=== PATIENT | female | born 1950 | race Caucasian/White ===

== ENCOUNTER → 2023-03-24 06:36 | Outpatient (REF) | payer MEDICARE, OTHER, SELFPAY | LOC: MRI 3T 06:36 | PROVIDERS: ATTENDING PHYSICIAN Podiatrist Foot Surgery; FAMILY PHYSICIAN Internal Medicine | DX: L97.522 Non-pressure chronic ulcer of other part of left foot with fat layer exposed (principal) | CPT/HCPCS: 73718 ==

== ENCOUNTER → 2023-04-20 08:59 | Outpatient (REF) | payer MEDICARE, OTHER, SELFPAY | LOC: RAD 08:59 | PROVIDERS: ATTENDING PHYSICIAN Podiatrist Foot Surgery; FAMILY PHYSICIAN Internal Medicine | DX: L97.522 Non-pressure chronic ulcer of other part of left foot with fat layer exposed (principal) | CPT/HCPCS: 93922; 93925 ==

== ENCOUNTER → 2023-04-28 07:23 | Outpatient (REF) | payer MEDICARE, OTHER, SELFPAY ==
[2023-04-28 08:17] LABS: % Basophils 0.7 % (0-2); % Eosinophils 1.9 % (0-6); % Immature Granulocytes 0.5 % (0-0.5); % Lymphocytes 15.9 % (20.5-51.1); % Monocytes 7.3 % (1.7-9.3); % Neutrophils 73.7 % (42.2-75.2); Absolute Basophils 0.1 10^3/uL (0-0.2); Absolute Eosinophils 0.2 10^3/uL (0-0.7); Absolute Immature Granulocytes 0.1 10^3/uL (0-0.05); Absolute Lymphocytes 1.6 10^3/uL (1.2-3.4); Absolute Monocytes 0.7 10^3/uL (0.1-0.6); Absolute Neutrophils 7.3 10^3/uL (1.4-6.5); Hematocrit 43.1 % (37.0-47.0); Hemoglobin 14.1 g/dL (12.0-16.0); Mean Corp Hgb Conc. 32.7 g/dL (33.0-37.0); Mean Corpuscular Hgb 27.5 pg (27.0-31.0); Mean Platelet Volume 10.5 fL (7.4-10.4); Nucleated Red Blood Cells % 0 %; Platelet Count 290 10^3/uL (130-400); Red Blood Cell Count 5.13 10^6/uL (4.20-5.40); Red Cell Dist. Width 14.4 % (11.5-14.5); White Blood Cell Count 9.9 10^3/uL (4.8-10.8)
[2023-04-28 09:17] LABS: ALT (SGPT) 16 U/L (0-35); AST (SGOT) 20 U/L (14-36); Albumin 4.4 g/dl (3.5-5.0); Alkaline Phosphatase 63 U/L (38-126); Blood Urea Nitrogen 19 mg/dl (7-17); Calcium 9.5 mg/dl (8.4-10.2); Carbon Dioxide 22 mmol/L (22-30); Chloride 106 mmol/L (98-107); Glucose 98 mg/dl (70-99); HDL Cholesterol 93 mg/dl; LDL Cholesterol, Calculated 48 mg/dl; Potassium 4.2 mmol/L (3.5-5.1); Sodium 137 mmol/L (135-145); Total Bilirubin 0.7 mg/dl (0.2-1.3); Total Cholesterol 154 mg/dl (50-199); Triglyceride 67 mg/dl (10-149); Very Low Density Lipoprotein 13 mg/dl (0-30); eGFR > 60.00
[2023-04-28 09:43] LABS: TSH Reflex To Free T4 < 0.02 uIU/ml (0.47-4.68)
[2023-04-28 10:11] LABS: Free T4 1.58 ng/dl (0.78-2.19)
[2023-04-28 13:20] LABS: Glycohemoglobin (HgbA1c) 5.9 % (4.0-5.6)
== END ==
LOC: REG 07:23
PROVIDERS: ATTENDING PHYSICIAN Internal Medicine
DX: I10 Essential (primary) hypertension (principal); E78.00 Pure hypercholesterolemia, unspecified; E11.9 Type 2 diabetes mellitus without complications; Z79.2 Long term (current) use of antibiotics; Z68.34 Body mass index [BMI] 34.0-34.9, adult
CPT/HCPCS: 36415; 80053; 80061; 83036; 84439; 84443; 85025

== ENCOUNTER → 2023-07-21 07:16 | Outpatient (REF) | payer MEDICARE, OTHER, SELFPAY ==
[2023-07-21 08:14] LABS: % Basophils 0.4 % (0-2); % Eosinophils 1.9 % (0-6); % Immature Granulocytes 0.6 % (0-0.5); % Lymphocytes 15.2 % (20.5-51.1); % Monocytes 6.4 % (1.7-9.3); % Neutrophils 75.5 % (42.2-75.2); Absolute Eosinophils 0.2 10^3/uL (0-0.7); Absolute Immature Granulocytes 0.1 10^3/uL (0-0.05); Absolute Lymphocytes 1.4 10^3/uL (1.2-3.4); Absolute Monocytes 0.6 10^3/uL (0.1-0.6); Absolute Neutrophils 7.1 10^3/uL (1.4-6.5); Hemoglobin 14.1 g/dL (12.0-16.0); Mean Corp Hgb Conc. 32.8 g/dL (33.0-37.0); Mean Corpuscular Hgb 27.4 pg (27.0-31.0); Mean Corpuscular Volume 83.5 fL (81.0-99.0); Mean Platelet Volume 10.6 fL (7.4-10.4); Nucleated Red Blood Cells % 0 %; Platelet Count 265 10^3/uL (130-400); Red Blood Cell Count 5.15 10^6/uL (4.20-5.40); Red Cell Dist. Width 14.3 % (11.5-14.5); White Blood Cell Count 9.4 10^3/uL (4.8-10.8)
[2023-07-21 08:56] LABS: Glycohemoglobin (HgbA1c) 6.2 % (4.0-5.6)
[2023-07-21 09:04] LABS: ALT (SGPT) 15 U/L (0-35); AST (SGOT) 19 U/L (14-36); Alkaline Phosphatase 61 U/L (38-126); Blood Urea Nitrogen 19 mg/dl (7-17); Calcium 9.7 mg/dl (8.4-10.2); Carbon Dioxide 24 mmol/L (22-30); Chloride 107 mmol/L (98-107); Glucose 79 mg/dl (70-99); HDL Cholesterol 82 mg/dl; LDL Cholesterol, Calculated 57 mg/dl; Sodium 140 mmol/L (135-145); Total Bilirubin 0.7 mg/dl (0.2-1.3); Total Cholesterol 155 mg/dl (50-199); Total Protein 6.9 g/dl (6.3-8.2); Triglyceride 83 mg/dl (10-149); Very Low Density Lipoprotein 16 mg/dl (0-30); eGFR > 60.00
[2023-07-21 09:33] LABS: TSH Reflex To Free T4 < 0.02 uIU/ml (0.47-4.68)
[2023-07-21 09:48] LABS: Albumin 4.3 g/dl (3.5-5.0)
[2023-07-21 10:00] LABS: Free T4 1.46 ng/dl (0.78-2.19)
== END ==
LOC: REG 07:16
PROVIDERS: ATTENDING PHYSICIAN Internal Medicine
DX: I10 Essential (primary) hypertension (principal); E11.622 Type 2 diabetes mellitus with other skin ulcer; E05.90 Thyrotoxicosis, unspecified without thyrotoxic crisis or storm
CPT/HCPCS: 36415; 80053; 80061; 83036; 84439; 84443; 85025

== ENCOUNTER → 2023-10-20 07:31 | Outpatient (REF) | payer MEDICARE, OTHER, SELFPAY ==
[2023-10-20 10:03] LABS: % Basophils 0.8 % (0-2); % Eosinophils 1.9 % (0-6); % Immature Granulocytes 0.7 % (0-0.5); % Lymphocytes 18.9 % (20.5-51.1); % Monocytes 6.3 % (1.7-9.3); % Neutrophils 71.4 % (42.2-75.2); Absolute Basophils 0.1 10^3/uL (0-0.2); Absolute Eosinophils 0.2 10^3/uL (0-0.7); Absolute Immature Granulocytes 0.1 10^3/uL (0-0.05); Absolute Lymphocytes 1.9 10^3/uL (1.2-3.4); Absolute Monocytes 0.6 10^3/uL (0.1-0.6); Absolute Neutrophils 7.2 10^3/uL (1.4-6.5); Hematocrit 45.8 % (37.0-47.0); Hemoglobin 14.8 g/dL (12.0-16.0); Mean Corp Hgb Conc. 32.3 g/dL (33.0-37.0); Mean Corpuscular Hgb 27.7 pg (27.0-31.0); Mean Corpuscular Volume 85.8 fL (81.0-99.0); Mean Platelet Volume 10.5 fL (7.4-10.4); Nucleated Red Blood Cells % 0 %; Platelet Count 263 10^3/uL (130-400); Red Blood Cell Count 5.34 10^6/uL (4.20-5.40); Red Cell Dist. Width 14.2 % (11.5-14.5); White Blood Cell Count 10.1 10^3/uL (4.8-10.8)
[2023-10-20 10:23] LABS: ALT (SGPT) 15 U/L (0-35); AST (SGOT) 19 U/L (14-36); Albumin 4.8 g/dl (3.5-5.0); Alkaline Phosphatase 61 U/L (38-126); Blood Urea Nitrogen 19 mg/dl (7-17); Calcium 10.1 mg/dl (8.4-10.2); Carbon Dioxide 23 mmol/L (22-30); Chloride 103 mmol/L (98-107); Glucose 86 mg/dl (70-99); HDL Cholesterol 91 mg/dl; LDL Cholesterol, Calculated 76 mg/dl; Potassium 5.3 mmol/L (3.5-5.1); Sodium 143 mmol/L (135-145); Total Bilirubin 0.6 mg/dl (0.2-1.3); Total Cholesterol 185 mg/dl (50-199); Total Protein 6.9 g/dl (6.3-8.2); Triglyceride 92 mg/dl (10-149); Very Low Density Lipoprotein 18 mg/dl (0-30); eGFR > 60.00
[2023-10-20 10:57] LABS: TSH Reflex To Free T4 0.52 uIU/ml (0.47-4.68)
[2023-10-20 11:40] LABS: Glycohemoglobin (HgbA1c) 5.9 % (4.0-5.6)
== END ==
LOC: REG 07:31
PROVIDERS: ATTENDING PHYSICIAN Podiatrist Foot Surgery; FAMILY PHYSICIAN Internal Medicine
DX: I10 Essential (primary) hypertension (principal); E78.00 Pure hypercholesterolemia, unspecified; Z79.2 Long term (current) use of antibiotics; E11.9 Type 2 diabetes mellitus without complications; Z01.818 Encounter for other preprocedural examination
CPT/HCPCS: 36415; 80053; 80061; 83036; 84443; 85025; 93005

== ENCOUNTER → 2024-01-12 09:12 | Outpatient (REF) | payer OTHER, MEDICARE, SELFPAY ==
[2024-01-12 10:41] LABS: % Basophils 0.9 % (0-2); % Eosinophils 5.7 % (0-6); % Immature Granulocytes 1.1 % (0-0.5); % Lymphocytes 27.9 % (20.5-51.1); % Monocytes 8.1 % (1.7-9.3); % Neutrophils 56.3 % (42.2-75.2); Absolute Basophils 0.1 10^3/uL (0-0.2); Absolute Eosinophils 0.5 10^3/uL (0-0.7); Absolute Immature Granulocytes 0.1 10^3/uL (0-0.05); Absolute Lymphocytes 2.2 10^3/uL (1.2-3.4); Absolute Monocytes 0.6 10^3/uL (0.1-0.6); Absolute Neutrophils 4.4 10^3/uL (1.4-6.5); Hematocrit 39.4 % (37.0-47.0); Hemoglobin 11.9 g/dL (12.0-16.0); Mean Corp Hgb Conc. 30.2 g/dL (33.0-37.0); Mean Corpuscular Hgb 26.4 pg (27.0-31.0); Mean Corpuscular Volume 87.4 fL (81.0-99.0); Mean Platelet Volume 10.2 fL (7.4-10.4); Nucleated Red Blood Cells % 0 %; Platelet Count 360 10^3/uL (130-400); Red Blood Cell Count 4.51 10^6/uL (4.20-5.40); Red Cell Dist. Width 15.3 % (11.5-14.5); White Blood Cell Count 7.9 10^3/uL (4.8-10.8)
[2024-01-12 10:53] LABS: ALT (SGPT) 17 U/L (0-35); AST (SGOT) 22 U/L (14-36); Albumin 3.2 g/dl (3.5-5.0); Alkaline Phosphatase 86 U/L (38-126); Blood Urea Nitrogen 13 mg/dl (7-17); Carbon Dioxide 28 mmol/L (22-30); Chloride 104 mmol/L (98-107); Glucose 93 mg/dl (70-99); Magnesium 1.9 mg/dl (1.6-2.3); Potassium 4.8 mmol/L (3.5-5.1); Sodium 140 mmol/L (135-145); Total Bilirubin 0.2 mg/dl (0.2-1.3); Total Protein 5.4 g/dl (6.3-8.2); eGFR > 60.00
[2024-01-12 11:02] LABS: Glycohemoglobin (HgbA1c) 5.7 % (4.0-5.6)
== END ==
LOC: OLABN 09:12
PROVIDERS: ATTENDING PHYSICIAN Student in an Organized Health Care Education/Training Program
DX: I10 Essential (primary) hypertension (principal); E11.9 Type 2 diabetes mellitus without complications; E83.42 Hypomagnesemia
CPT/HCPCS: 36415; 80053; 83036; 83735; 85025

== ENCOUNTER → 2024-03-03 07:42 | Outpatient (REF) | payer OTHER, MEDICARE, SELFPAY | LOC: WOUND 07:42 | PROVIDERS: ATTENDING PHYSICIAN Surgery; FAMILY PHYSICIAN Internal Medicine | DX: L97.322 Non-pressure chronic ulcer of left ankle with fat layer exposed (principal); L97.326 Non-pressure chronic ulcer of left ankle with bone involvement without evidence of necrosis; I73.9 Peripheral vascular disease, unspecified; E11.9 Type 2 diabetes mellitus without complications; Z96.662 Presence of left artificial ankle joint | CPT/HCPCS: 11042; 99214 ==

== ENCOUNTER → 2024-03-10 09:11 | Outpatient (REF) | payer OTHER, MEDICARE, SELFPAY | LOC: WOUND 09:11 | PROVIDERS: ATTENDING PHYSICIAN Surgery; FAMILY PHYSICIAN Internal Medicine | DX: L97.322 Non-pressure chronic ulcer of left ankle with fat layer exposed (principal); E11.51 Type 2 diabetes mellitus with diabetic peripheral angiopathy without gangrene | CPT/HCPCS: 97597 ==

== ENCOUNTER → 2024-03-17 11:11 | Outpatient (REF) | payer OTHER, MEDICARE, SELFPAY ==
[2024-03-17 13:22] LABS: HDL Cholesterol 44 mg/dl; LDL Cholesterol, Calculated 55 mg/dl; Total Cholesterol 119 mg/dl (50-199); Triglyceride 102 mg/dl (10-149); Very Low Density Lipoprotein 20 mg/dl (0-30)
== END ==
LOC: OLABN 11:11
PROVIDERS: ATTENDING PHYSICIAN Student in an Organized Health Care Education/Training Program
DX: E78.5 Hyperlipidemia, unspecified (principal)
CPT/HCPCS: 36415; 80061

== ENCOUNTER → 2024-04-21 10:44 | Outpatient (REF) | payer OTHER, MEDICARE, SELFPAY | LOC: WOUND 10:44 | PROVIDERS: ATTENDING PHYSICIAN Surgery; FAMILY PHYSICIAN Internal Medicine | DX: L97.324 Non-pressure chronic ulcer of left ankle with necrosis of bone (principal); L97.322 Non-pressure chronic ulcer of left ankle with fat layer exposed; L03.116 Cellulitis of left lower limb; I73.9 Peripheral vascular disease, unspecified; E11.9 Type 2 diabetes mellitus without complications; Z96.662 Presence of left artificial ankle joint | CPT/HCPCS: 87070; 87075; 87077; 87147; 87186; 87205; 99214 ==

== ENCOUNTER → 2024-05-17 11:21 | Outpatient (REF) | payer MEDICARE, OTHER, SELFPAY ==
[2024-05-17 12:40] LABS: Hematocrit 39.2 % (37.0-47.0); Hemoglobin 11.6 g/dL (12.0-16.0); Mean Corp Hgb Conc. 29.6 g/dL (33.0-37.0); Mean Corpuscular Hgb 23.7 pg (27.0-31.0); Mean Platelet Volume 10.5 fL (7.4-10.4); Platelet Count 345 10^3/uL (130-400); Red Cell Dist. Width 23.3 % (11.5-14.5); White Blood Cell Count 8.9 10^3/uL (4.8-10.8)
[2024-05-17 13:47] LABS: Blood Urea Nitrogen 18 mg/dl (7-17); Calcium 9.9 mg/dl (8.4-10.2); Carbon Dioxide 25 mmol/L (22-30); Chloride 106 mmol/L (98-107); Glucose 47 mg/dl (70-99); Potassium 4.3 mmol/L (3.5-5.1); Sodium 141 mmol/L (135-145); eGFR > 60.00
== END ==
LOC: OLABN 11:21
PROVIDERS: ATTENDING PHYSICIAN Student in an Organized Health Care Education/Training Program
DX: A49.02 Methicillin resistant Staphylococcus aureus infection, unspecified site (principal)
CPT/HCPCS: 36415; 80048; 85027

== ENCOUNTER → 2024-06-02 10:37 | Outpatient (REF) | payer MEDICARE, OTHER, SELFPAY ==
[2024-06-02 10:50] LABS: % Basophils 0.7 % (0-2); % Eosinophils 3.4 % (0-6); % Monocytes 7.3 % (1.7-9.3); % Neutrophils 63.6 % (42.2-75.2); Absolute Basophils 0.1 10^3/uL (0-0.2); Absolute Eosinophils 0.4 10^3/uL (0-0.7); Absolute Immature Granulocytes 0.1 10^3/uL (0-0.05); Absolute Lymphocytes 3.1 10^3/uL (1.2-3.4); Absolute Monocytes 0.9 10^3/uL (0.1-0.6); Absolute Neutrophils 8.1 10^3/uL (1.4-6.5); Hematocrit 38.8 % (37.0-47.0); Hemoglobin 11.8 g/dL (12.0-16.0); Mean Corp Hgb Conc. 30.4 g/dL (33.0-37.0); Mean Corpuscular Hgb 24.1 pg (27.0-31.0); Mean Corpuscular Volume 79.3 fL (81.0-99.0); Mean Platelet Volume 10.4 fL (7.4-10.4); Nucleated Red Blood Cells % 0 %; Platelet Count 305 10^3/uL (130-400); Red Blood Cell Count 4.89 10^6/uL (4.20-5.40); Red Cell Dist. Width 21.5 % (11.5-14.5); White Blood Cell Count 12.8 10^3/uL (4.8-10.8)
[2024-06-02 11:01] LABS: Erythrocyte Sed Rate 24 mm/hour (0-20)
[2024-06-02 11:30] LABS: ALT (SGPT) 13 U/L (0-35); AST (SGOT) 14 U/L (14-36); Albumin 3.5 g/dl (3.5-5.0); Alkaline Phosphatase 76 U/L (38-126); Blood Urea Nitrogen 22 mg/dl (7-17); Calcium 9.7 mg/dl (8.4-10.2); Carbon Dioxide 24 mmol/L (22-30); Chloride 106 mmol/L (98-107); Glucose 65 mg/dl (70-99); Potassium 4.5 mmol/L (3.5-5.1); Sodium 142 mmol/L (135-145); Total Bilirubin 0.4 mg/dl (0.2-1.3); Total Protein 6.3 g/dl (6.3-8.2); eGFR > 60.00
== END ==
LOC: OLABN 10:37
PROVIDERS: ATTENDING PHYSICIAN Student in an Organized Health Care Education/Training Program
DX: M86.9 Osteomyelitis, unspecified (principal)
CPT/HCPCS: 80053; 85025; 85652; 86140

== ENCOUNTER → 2024-07-01 10:10 | Outpatient (REF) | payer MEDICARE, OTHER, SELFPAY ==
[2024-07-01 13:05] LABS: % Basophils 0.6 % (0-2); % Eosinophils 3.2 % (0-6); % Immature Granulocytes 0.8 % (0-0.5); % Lymphocytes 38.5 % (20.5-51.1); % Monocytes 8.7 % (1.7-9.3); % Neutrophils 48.2 % (42.2-75.2); Absolute Eosinophils 0.2 10^3/uL (0-0.7); Absolute Immature Granulocytes 0.1 10^3/uL (0-0.05); Absolute Lymphocytes 2.5 10^3/uL (1.2-3.4); Absolute Monocytes 0.6 10^3/uL (0.1-0.6); Absolute Neutrophils 3.2 10^3/uL (1.4-6.5); Hematocrit 37.6 % (37.0-47.0); Hemoglobin 11.4 g/dL (12.0-16.0); Mean Corp Hgb Conc. 30.3 g/dL (33.0-37.0); Mean Corpuscular Hgb 24.3 pg (27.0-31.0); Mean Platelet Volume 10.4 fL (7.4-10.4); Nucleated Red Blood Cells % 0 %; Platelet Count 254 10^3/uL (130-400); Red Cell Dist. Width 19.7 % (11.5-14.5); White Blood Cell Count 6.5 10^3/uL (4.8-10.8)
[2024-07-01 13:32] LABS: ALT (SGPT) 12 U/L (0-35); AST (SGOT) 14 U/L (14-36); Albumin 3.1 g/dl (3.5-5.0); Alkaline Phosphatase 73 U/L (38-126); Blood Urea Nitrogen 24 mg/dl (7-17); Calcium 8.7 mg/dl (8.4-10.2); Carbon Dioxide 24 mmol/L (22-30); Chloride 112 mmol/L (98-107); Glucose 87 mg/dl (70-99); Potassium 4.4 mmol/L (3.5-5.1); Sodium 142 mmol/L (135-145); Total Bilirubin 0.3 mg/dl (0.2-1.3); Total Protein 5.9 g/dl (6.3-8.2); eGFR > 60.00
[2024-07-01 13:56] LABS: Erythrocyte Sed Rate 26 mm/hour (0-20)
== END ==
LOC: OLABN 10:10
PROVIDERS: ATTENDING PHYSICIAN Student in an Organized Health Care Education/Training Program
DX: M86.9 Osteomyelitis, unspecified (principal)
CPT/HCPCS: 36415; 80053; 85025; 85652; 86140

== ENCOUNTER → 2024-09-05 10:47 | Outpatient (REF) | payer MEDICARE, OTHER, SELFPAY ==
[2024-09-05 12:35] LABS: Blood Urea Nitrogen 19 mg/dl (7-17); Calcium 9.1 mg/dl (8.4-10.2); Carbon Dioxide 28 mmol/L (22-30); Chloride 109 mmol/L (98-107); Glucose 87 mg/dl (70-99); Potassium 5.0 mmol/L (3.5-5.1); Sodium 140 mmol/L (135-145); eGFR > 60.00
[2024-09-05 13:09] LABS: C-Reactive Protein < 5.00 mg/L (0.0-10.00)
== END ==
LOC: OLABN 10:47
PROVIDERS: ATTENDING PHYSICIAN Student in an Organized Health Care Education/Training Program
DX: M86.9 Osteomyelitis, unspecified (principal)
CPT/HCPCS: 36415; 80048; 85652; 86140

== ENCOUNTER → 2024-09-06 20:33 | Outpatient (REF) | payer MEDICARE, OTHER, SELFPAY ==
[2024-09-07 11:08] LABS: Urine Character Slightly Cloudy (Clear)
[2024-09-07 11:55] LABS: Urine Squamous Cell 26-30 /LPF (Few)
[2024-09-07 11:57] LABS: Urine White Cell 60-70 /HPF (0-5)
== END ==
LOC: OLABN 20:33
PROVIDERS: ATTENDING PHYSICIAN Student in an Organized Health Care Education/Training Program
DX: R30.9 Painful micturition, unspecified (principal)
CPT/HCPCS: 81003; 81015; 87077; 87086

== ENCOUNTER → 2024-09-07 10:14 | Outpatient (REF) | payer MEDICARE, OTHER, SELFPAY ==
[2024-09-07 10:38] LABS: Hematocrit 38.1 % (37.0-47.0); Hemoglobin 12.2 g/dL (12.0-16.0); Mean Corp Hgb Conc. 32.0 g/dL (33.0-37.0); Mean Corpuscular Volume 80.9 fL (81.0-99.0); Platelet Count 329 10^3/uL (130-400); Red Cell Dist. Width 15.8 % (11.5-14.5)
== END ==
LOC: OLABN 10:14
PROVIDERS: ATTENDING PHYSICIAN Student in an Organized Health Care Education/Training Program
DX: Z86.14 Personal history of Methicillin resistant Staphylococcus aureus infection (principal)
CPT/HCPCS: 36415; 85027

== ENCOUNTER → 2024-10-19 21:00 | Outpatient (REF) | payer MEDICARE, OTHER, SELFPAY ==
[2024-10-20 12:57] LABS: Urine Character Cloudy (Clear)
[2024-10-20 13:34] LABS: Urine Red Blood Cell 0-2 /HPF (0-2)
== END ==
LOC: OLABN 21:00
PROVIDERS: ATTENDING PHYSICIAN Student in an Organized Health Care Education/Training Program
DX: R35.0 Frequency of micturition (principal)
CPT/HCPCS: 81003; 81015; 87086

== ENCOUNTER 2025-01-26 14:43 | Inpatient (IN) | payer MEDICARE, OTHER, SELFPAY ==
[2025-01-26] VITALS (10 sets, daily range): BP systolic 95–148; BP diastolic 41–88; BMI 32.2
--- NOTE | 2025-01-26 09:28 | ED.GENMED ---
History of Present Illness
<TAE Bautista - Last Filed: 01/26/25 15:44>
General
Chief Complaint: Fall
Source: patient
Exam Limitations: none
Time Seen by Provider: 01/26/25 09:06
Nursing documentation reviewed up to this point in time: agreed with
History of Present Illness
History of Present Illness:
Patient is a 74-year-old female who lives alone presents to the ER for evaluation. Patient reports she has had a fever for the past 2 days and has not felt well. Today she reports she fell twice because of not feeling well. She fell earlier this
morning at 5:30 AM and prior to arrival. She called EMS initially to assist her off the ground however she did not come to the ER. With the second fall EMS brought patient to the ER. She denies hitting her head she does complain of right knee
pain. She is not on blood thinners.
She complains of fever she denies any runny nose cough congestion. She denies any abdominal pain nausea vomiting diarrhea. She denies any urinary frequency or urgency.
Past History
<TAE Bautista - Last Filed: 01/26/25 15:44>
Past History
ED Past Medical History: HTN, Hypercholesterolemia, NIDDM and Other (Osteoarthritis)
ED Past Surgical History: Orthopedic (Bilateral hip replacement, bilateral knee replacement), Tonsilectomy and Other (Agree with documented past surgical history)
Social History
Tobacco: Non-smoker
Alcohol: None
Personal: Single
Living: alone
Employment: Retired (Volunteer at [employer])
Family History
Family History: Other (Noncontributory)
Phy Exam
<TAE Bautista - Last Filed: 01/26/25 15:44>
General Physical Exam
General Presentation: no apparent distress
General age: appears stated age
General Skin: warm and dry
General Habitus: normal
General Mental: alert
General Hydration: dry mucous membranes
Cardiovascular Exam
Cardiovascular Exam: tachycardia
Pulmonary Exam
Pulmonary Exam: lungs clear and no respiratory distress
Neurological Exam
Neurological Exam: alert and oriented x3
Musculoskeletal Exam
Musculoskeletal Exam: other (lle with strong pulses + wound to medial left ankle with erythema to left ankle/lower leg )
Skin Exam
Skin Exam: normal color and warm/dry
Psychiatric Exam
Psychiatric Exam: normal mood/affect
Course
<TAE Bautista - Last Filed: 01/26/25 15:44>
Orders/Labs/Results
Orders:
Orders
01/26/25 09:20
Electrocardiogram (*1) Urgent
Reason for Study: Other
Other Reason for Exam: Possible Sepsis
Cardiac Monitoring- Treatment ONCE
EKG- Treatment ONCE
IV Insert/Care/Rem.- Treatment PRN
CR Chest - 2 Views Urgent
Comment:
Reason For Exam: suspected infection
O2 Therapy [RESP] Urgent
Titrate/Wean O2 to maintain O2 sat greater than (%): 93
Special Instructions: TO MAINTAIN CONTINUOUS O2 SATS > OR = 93%
Pulse Ox/cont/shift [RESP] Urgent
Quantity: 1
Special Instructions: CONTINUOUS
01/26/25 09:22
COVID-19 Antigen Urgent
Source: Nasal Swab
Complete Blood Count/With Diff Urgent
Comprehensive Metabolic Panel Urgent
Lactic Acid Q4H
Comment: ON ICE, CANCEL 2ND ORDER IF FIRST LACTIC ACID LEVEL <2
Blood Culture Q20M
ANGELICA Source: Blood/Venous
Specimen Description:
Comment: Urgent from separate sites. If patient screens positive for possible sepsis
Blood Culture Q20M
ANGELICA Source: Blood/Venous
Specimen Description:
Comment: Urgent from separate sites. If patient screens positive for possible sepsis
Influenza A+B Rapid Molecular Urgent
ANGLEICA Source: Nasal Swab
Specimen Description:
Date Specimen was Collected: 01/26/25
Time Specimen was Collected: 09:20
01/26/25 09:23
CT Cervical Spine W/o Iv Contr Urgent
Comment:
Reason For Exam: trauma
CT Head W/o Iv Contrast Urgent
Comment:
Reason For Exam: trauma
01/26/25 09:25
0.9% Sodium Chloride 1000 ml [Nss] 1,000 ml IV BOLUS
01/26/25 09:26
Acetaminophen [Tylenol] 1,000 mg PO NOW STA
01/26/25 10:31
0.9% Sodium Chloride 1000 ml [Nss] 800 ml IV BOLUS
01/26/25 10:48
Straight cath- Treatment ONCE
01/26/25 10:50
CT Chest W/o Iv Contrast Urgent
Comment:
Reason For Exam: left chest wall brusing tenderness s/p fall
01/26/25 10:56
Piperacillin/Tazo 3.375 Gram [Zosyn] 3.375 gram in 50 ml IV NOW
01/26/25 11:57
Vancomycin [Vancocin] 2,000 mg 0.9% Sodium Chloride 500 ml [Nss] 500 ml IV NOW
01/26/25 12:38
CR Femur - Right Min 2 Vw Urgent
Comment:
Reason For Exam: right leg pain
01/26/25 13:50
Urinalysis Reflex To Culture Urgent
Date Specimen was Collected: 01/26/25
Time Specimen was Collected: 09:20
Urine Microscopic Reflex Cult Urgent
Urine Culture Urgent
ANGELICA Source: U
Specimen Description:
Date Specimen was Collected: 01/26/25
Time Specimen was Collected: 09:20
01/26/25 14:01
Admit/Transfer Patient As Directed
Co-Sign Provider:
Level of Care: Inpatient admission
Assign to:: Telemetry
Physician / Group: michelle
Diagnosis: cellulitis
Reason for Telemetry: Arrhythmia
Date to Stop Telemetry: 01/29/25
Time to Stop Telemetry: 11:00
Reason for Hospitalization: cellulitis
Expected length of stay greater than two midnights?: Yes
ELOS- Estimated Length of Stay in days: 3
I certify the patient meets the requirements for IP care: Yes
PRN Pain Medication Management As Directed
May give lesser potent ordered pain med per pt: Yes
preference::
Protocol:: Medication orders for pain may be administered in a
manner that supports deferring to patient preference
when the pt is:
- Requesting an ordered lesser potent pain medication.
Least to most potent pain medications are defined
as: acetaminophen < NSAID < tramadol < opioids
(morphine, oxycodone, hydromorphone).
- Requesting a lesser dose of the same medication IF
ORDERED.
- Requesting a less intrusive route of administration
if both routes are prescribed by the provider (PO <
IV).
01/26/25 14:02
Code Status As Directed
Resuscitation Status: Full Code
01/26/25 14:19
INFECTIOUS DISEASE CONSULT Routine
Consulting Provider: Abner Akins
Was physician already notified: Yes
01/26/25 14:20
Ibuprofen [Motrin] 600 mg PO NOW STA
01/29/25 11:00
DC Protocol for Telemetry ONCE
Abnormal Lab Results
01/26/25 01/26/25
09:22 13:50
WBC 24.2 H 10^3/uL
(4.8-10.8)
MCV 78.2 L fL
(81.0-99.0)
MCH 25.4 L pg
(27.0-31.0)
MCHC 32.4 L g/dL
(33.0-37.0)
RDW 16.9 H %
(11.5-14.5)
Abs Immat Gran (auto) 0.2 H 10^3/uL
(0-0.05)
Absolute Neuts (auto) 21.6 H 10^3/uL
(1.4-6.5)
Absolute Lymphs (auto) 0.6 L 10^3/uL
(1.2-3.4)
Absolute Monos (auto) 1.7 H 10^3/uL
(0.1-0.6)
Immature Gran % 0.9 H %
(0-0.5)
Neutrophils % 89.4 H %
(42.2-75.2)
Lymphocytes % 2.4 L %
(20.5-51.1)
Chloride 108 H mmol/L
(98-107)
Carbon Dioxide 18 L mmol/L
(22-30)
Glucose 164 H mg/dl
(70-99)
Urine Ketones 1+ A
(Negative)
Ur Occult Blood Reflex 4+ A
(Negative)
Urine Nitrite (Reflex) Positive A
(Negative)
Leukocyte Esterase Rfl 1+ A
(Negative)
Urine RBC 50-60 A /HPF
(0-2)
Urine WBC (Reflex) 40-50 A /HPF
(0-5)
Urine Bacteria (Reflex) Many A
(Negative)
Urine Albumin (Reflex) 3+ A
(Neg - Trace)
01/26/25 09:22
01/26/25 09:22
Vital Signs
Initial and Last Documented VS:
Initial Vital Signs
Temp Pulse Resp BP Pulse Ox
102.0 F H 110 24 148/71 92
01/26/25 09:09 01/26/25 09:09 01/26/25 09:09 01/26/25 09:09 01/26/25 09:09
Last Documented Vital Signs
Temp Pulse Resp BP Pulse Ox
102.0 F H 94 28 104/50 90
01/26/25 14:14 01/26/25 15:00 01/26/25 15:00 01/26/25 15:00 01/26/25 15:00
Social Worker Masters consulted with Physician
Social Worker Masters consulted with physician?: Yes
Name of Physician Consulted: DR Garcia
<Oscar Garcia MD - Last Filed: 01/26/25 12:42>
Orders/Labs/Results
Orders:
Orders
01/26/25 09:20
Electrocardiogram (*1) Urgent
Reason for Study: Other
Other Reason for Exam: Possible Sepsis
Cardiac Monitoring- Treatment ONCE
EKG- Treatment ONCE
IV Insert/Care/Rem.- Treatment PRN
CR Chest - 2 Views Urgent
Comment:
Reason For Exam: suspected infection
O2 Therapy [RESP] Urgent
Titrate/Wean O2 to maintain O2 sat greater than (%): 93
Special Instructions: TO MAINTAIN CONTINUOUS O2 SATS > OR = 93%
Pulse Ox/cont/shift [RESP] Urgent
Quantity: 1
Special Instructions: CONTINUOUS
01/26/25 09:22
COVID-19 Antigen Urgent
Source: Nasal Swab
Complete Blood Count/With Diff Urgent
Comprehensive Metabolic Panel Urgent
Lactic Acid Q4H
Comment: ON ICE, CANCEL 2ND ORDER IF FIRST LACTIC ACID LEVEL <2
Blood Culture Q20M
ANGELICA Source: Blood/Venous
Specimen Description:
Comment: Urgent from separate sites. If patient screens positive for possible sepsis
Blood Culture Q20M
ANGELICA Source: Blood/Venous
Specimen Description:
Comment: Urgent from separate sites. If patient screens positive for possible sepsis
Influenza A+B Rapid Molecular Urgent
ANGELICA Source: Nasal Swab
Specimen Description:
Date Specimen was Collected: 01/26/25
Time Specimen was Collected: 09:20
01/26/25 09:23
CT Cervical Spine W/o Iv Contr Urgent
Comment:
Reason For Exam: trauma
CT Head W/o Iv Contrast Urgent
Comment:
Reason For Exam: trauma
01/26/25 09:25
0.9% Sodium Chloride 1000 ml [Nss] 1,000 ml IV BOLUS
01/26/25 09:26
Acetaminophen [Tylenol] 1,000 mg PO NOW STA
01/26/25 10:31
0.9% Sodium Chloride 1000 ml [Nss] 800 ml IV BOLUS
01/26/25 10:48
Straight cath- Treatment ONCE
01/26/25 10:50
CT Chest W/o Iv Contrast Urgent
Comment:
Reason For Exam: left chest wall brusing tenderness s/p fall
01/26/25 10:56
Piperacillin/Tazo 3.375 Gram [Zosyn] 3.375 gram in 50 ml IV NOW
01/26/25 11:57
Vancomycin [Vancocin] 2,000 mg 0.9% Sodium Chloride 500 ml [Nss] 500 ml IV NOW
01/26/25 12:38
CR Femur - Right Min 2 Vw Urgent
Comment:
Reason For Exam: right leg pain
01/26/25 13:50
Urinalysis Reflex To Culture Urgent
Date Specimen was Collected: 01/26/25
Time Specimen was Collected: 09:20
Urine Microscopic Reflex Cult Urgent
Urine Culture Urgent
ANGELICA Source: U
Specimen Description:
Date Specimen was Collected: 01/26/25
Time Specimen was Collected: 09:20
01/26/25 14:01
Admit/Transfer Patient As Directed
Co-Sign Provider:
Level of Care: Inpatient admission
Assign to:: Telemetry
Physician / Group: michelle
Diagnosis: cellulitis
Reason for Telemetry: Arrhythmia
Date to Stop Telemetry: 01/29/25
Time to Stop Telemetry: 11:00
Reason for Hospitalization: cellulitis
Expected length of stay greater than two midnights?: Yes
ELOS- Estimated Length of Stay in days: 3
I certify the patient meets the requirements for IP care: Yes
PRN Pain Medication Management As Directed
May give lesser potent ordered pain med per pt: Yes
preference::
Protocol:: Medication orders for pain may be administered in a
manner that supports deferring to patient preference
when the pt is:
- Requesting an ordered lesser potent pain medication.
Least to most potent pain medications are defined
as: acetaminophen < NSAID < tramadol < opioids
(morphine, oxycodone, hydromorphone).
- Requesting a lesser dose of the same medication IF
ORDERED.
- Requesting a less intrusive route of administration
if both routes are prescribed by the provider (PO <
IV).
01/26/25 14:02
Code Status As Directed
Resuscitation Status: Full Code
01/26/25 14:19
INFECTIOUS DISEASE CONSULT Routine
Consulting Provider: Abner Akins
Was physician already notified: Yes
01/26/25 14:20
Ibuprofen [Motrin] 600 mg PO NOW STA
01/29/25 11:00
DC Protocol for Telemetry ONCE
Abnormal Lab Results
01/26/25 01/26/25
09:22 13:50
WBC 24.2 H 10^3/uL
(4.8-10.8)
MCV 78.2 L fL
(81.0-99.0)
MCH 25.4 L pg
(27.0-31.0)
MCHC 32.4 L g/dL
(33.0-37.0)
RDW 16.9 H %
(11.5-14.5)
Abs Immat Gran (auto) 0.2 H 10^3/uL
(0-0.05)
Absolute Neuts (auto) 21.6 H 10^3/uL
(1.4-6.5)
Absolute Lymphs (auto) 0.6 L 10^3/uL
(1.2-3.4)
Absolute Monos (auto) 1.7 H 10^3/uL
(0.1-0.6)
Immature Gran % 0.9 H %
(0-0.5)
Neutrophils % 89.4 H %
(42.2-75.2)
Lymphocytes % 2.4 L %
(20.5-51.1)
Chloride 108 H mmol/L
(98-107)
Carbon Dioxide 18 L mmol/L
(22-30)
Glucose 164 H mg/dl
(70-99)
Urine Ketones 1+ A
(Negative)
Ur Occult Blood Reflex 4+ A
(Negative)
Urine Nitrite (Reflex) Positive A
(Negative)
Leukocyte Esterase Rfl 1+ A
(Negative)
Urine RBC 50-60 A /HPF
(0-2)
Urine WBC (Reflex) 40-50 A /HPF
(0-5)
Urine Bacteria (Reflex) Many A
(Negative)
Urine Albumin (Reflex) 3+ A
(Neg - Trace)
01/26/25 09:22
01/26/25 09:22
Vital Signs
Initial and Last Documented VS:
Initial Vital Signs
Temp Pulse Resp BP Pulse Ox
102.0 F H 110 24 148/71 92
01/26/25 09:09 01/26/25 09:09 01/26/25 09:09 01/26/25 09:09 01/26/25 09:09
Last Documented Vital Signs
Temp Pulse Resp BP Pulse Ox
102.0 F H 94 28 104/50 90
01/26/25 14:14 01/26/25 15:00 01/26/25 15:00 01/26/25 15:00 01/26/25 15:00
<TAE Bautista - Last Filed: 01/26/25 15:44>
MDM/Problems Addressed
Differential Diagnosis Includes:
Not limited to fever COVID-pneumonia influenza , UTI head injury , chest wall contusion verus fracture
MDM/Problems Addressed:
74-year-old female here for evaluation after 2 fall. Patient did not call EMS. . patient has not felt well for the past several days and was found to be febrile here at 102. Patient's white count is elevated 24 normal function sugar mildly
elevated 164 within normal limits. Patient does present tachycardic but in driving again. Patient was given fluid bolus based on sepsis guidelines. . Patient appears to have bruising to left lateral eyelid bruise in her left anterior chest walll.
CT head negative. She is on blood thinners. urine is pending at this time your patient has not obvious redness to the left leg ankle region. She does wear an Ankle brace and has a wound to the medial aspect of her left ankle with surrounding
manage lateral ankle erythema.
With fever will treat for cellulitis.
Case discussed with physician evaluated patient with bruising to her left anterior chest wall CT chest
ct chest negative
Case discussed with admitting hospitalist regarding mission for cellulitis. In addition the patient has UTI covered with antibiotics
Chronic conditions affecting care:
diabetes
<TAE Bautista - Last Filed: 01/26/25 15:44>
*Radiology
Radiology exam reviewed: radiology read reviewed
*Pulse Oximetry
SaO2: 92
Oxygen Mode of Delivery: Room air
Patient hypoxic: no
*EKG
Heart Rate: 104
Rate: tachycardiac
Rhythm: sinus tachycardia
*Critical Care Note
Total Time (30-74mins, 75-104mins- exclusive of procedures): Not Applicable
ED Attending Note
<TAE Bautista - Last Filed: 01/26/25 15:44>
-
Portions of this chart may have been created with voice recognition software.� Occasional wrong word or��sound alike� substitutions may have occurred due to the inherent limitations of voice recognition software.
<Oscar Garcia MD - Last Filed: 01/26/25 12:42>
ED Attending Note
Patient seen and examined by attending physician: Yes
ED Attending Note:
I have seen and evaluated the patient with a [id number] encounter. I have spoken to the advance practicer provider and involved in the medical history, the physical exam, medical decision making.
Evaluation and management service: agree unless noted differently below.
Results interpretation: agree unless noted differently below.
Focused HPI: 74-year-old female with a past medical history of hypertension, hyperlipidemia, diabetes who presents to the emergency department for evaluation after 2 falls today, also has fatigue and fever. Patient currently lives independently in
the community. She says that she has been feeling unwell for the past few days that she said subjective fever and chills and general fatigue. This morning she was getting up out of her recliner and she says that she slid to the ground but did not
suffer any serious injuries and so while EMS was called for lift assist she did not feel the need to go to the hospital. She says later in the morning she was walking to the bathroom and she felt her legs give out underneath her and fell forward.
She did hit her head but did not lose consciousness. She was able to use her cell phone call for help and was brought to the ER. She denies any serious injuries from the fall�she did sustain a bruise to the left chest wall but denies any headache,
neck pain, back pain, chest pain, pain in the extremities. She has had some increased redness in her left lower extremity recently�she has been receiving wound care/skin care on that leg. She wears a brace due to a foot drop postsurgical and says
that the brace irritates her skin in the area. Aside from this she has not had any other potential infectious symptoms such as cough, sore throat, rhinorrhea, shortness of breath, nausea/vomiting/diarrhea, dysuria, hematuria or any other acute
issues.
Physical exam: Awake and alert. She is tachycardic and tachypneic, febrile here but not hypoxic, normotensive here. Mucous membranes appear very dry and she has poor skin turgor. On trauma assessment her head shows minor bruise to the left
forehead. No cephalhematoma. No cervical spine tenderness. No signs of trauma to the back or flank and no tenderness in the thoracic or lumbar spine. She does have left anterior chest wall bruising and abrasion which is tender to the touch. No
abdominal tenderness. No signs of acute trauma to the extremities. She does have wound to the medial aspect of the left ankle which appears generally clean and shallow based. Lateral aspect of the ankle she has extremely dry cracked/callused skin
and lateral lower leg is erythematous, warm to the touch and tender.
Medical Decision Makin-year-old female presents for evaluation after a fall�has been feeling fatigued and subjective fever/chills for the past few days. She has left chest wall bruising and minor contusion to the head no other acute traumatic
injuries. Will check CT of the head, cervical spine, CT chest. She does present febrile and tachycardic, tachypneic here. Will check labs including a CBC and a CMP, lactate and blood cultures. Send viral swabs, urinalysis. Follow-up on CT chest
regarding possibility of pulmonary infection. She does have left lower leg erythema and warmth in the area of wound/callus overall suspect symptoms may be from cellulitis. Will treat fever, provide fluids�she clearly appears hypervolemic on exam.
Anticipate admission.
CT head and cervical spine negative for any acute posttraumatic injury. CT chest no acute abnormality. Suspect fever and leukocytosis likely from cellulitis of the left lower extremity. Given IV antibiotics. Plan for admission. On reassessment
prior to admission to review her results patient says she was not complaining of pain in her right leg. On palpation she has some mild tenderness of the distal femur although she does allow for full range of motion in the right hip and knee. Will
check x-ray femur. Plan for admission.
Discharge Plan
Departure
Patient Disposition: Admit
Date of Disposition: 01/26/25
Time of Disposition: 13:31
Admit to: Med/Surg
Admit to doctor: hospitalist
Presentation/result/management discussed w/ accepting MD/DO: Hospitalist
Patient with high blood pressure during this ER visit?: Yes
Condition: Fair
Covid-19: Not Applicable
Discharge Problem:
Fever, CELLULITIS LEFT LOWER LEG, Acute UTI
Interventions
Interventions:
*Risk Screen - Suicide Last Done: 01/26/25 09:09
*General Assessment Last Done: 01/26/25 09:09
*Neglect/Abuse Screening Last Done: 01/26/25 09:09
*ED COVID-19 Vaccine History Last Done: 01/26/25 09:09
*ED Influenza Vaccine History Last Done: 01/26/25 09:09
[facility] Fall Risk Assessment Tool Last Done: 01/26/25 10:20
*Nursing Disposition Last Done: 01/26/25 15:12
ED-Musculoskeletal Assessment Last Done: 01/26/25 10:29
ED- Neurological Assessment Last Done: 01/26/25 10:29
ED-Skin Assessment Last Done: 01/26/25 10:29
Discharge Date and Time
Discharge Date/Time: 01/26/25 15:43
[2025-01-26] MEDS: TYLENOL 1000 MG PO (09:43)
[2025-01-26] MEDS: NSS 1000 IV ×2 (09:44→17:47)
[2025-01-26 10:02] LABS: ALT (SGPT) 14 U/L (0-35); AST (SGOT) 21 U/L (14-36); Albumin 3.8 g/dl (3.5-5.0); Alkaline Phosphatase 82 U/L (38-126); Blood Urea Nitrogen 12 mg/dl (7-17); Calcium 9.1 mg/dl (8.4-10.2); Carbon Dioxide 18 mmol/L (22-30); Chloride 108 mmol/L (98-107); Estimated Creatinine Clearance 96 ml/min; Glucose 164 mg/dl (70-99); Potassium 3.5 mmol/L (3.5-5.1); Sodium 136 mmol/L (135-145); Total Protein 6.8 g/dl (6.3-8.2); eGFR > 60.00
[2025-01-26 10:04] LABS: Hematocrit 37.0 % (37.0-47.0); Hemoglobin 12.0 g/dL (12.0-16.0); Mean Corp Hgb Conc. 32.4 g/dL (33.0-37.0); Mean Corpuscular Volume 78.2 fL (81.0-99.0); Platelet Count 243 10^3/uL (130-400); Red Cell Dist. Width 16.9 % (11.5-14.5)
[2025-01-26 10:15] LABS: COVID-19 Antigen Negative (Negative)
[2025-01-26 10:24] LABS: Nucleated Red Blood Cells % 0 %
[2025-01-26] MEDS: NSS 800 IV (10:32)
--- NOTE | 2025-01-26 11:15 | EDRN ---
Patient placed on 2L nasal canula as her os is 88% on room air, other long resting comfortably at this time, call charles in reach.
[2025-01-26] MEDS: ZOSYN 50 IV (12:11)
[2025-01-26] MEDS: VANCOCIN 540 MG IV (12:31)
--- NOTE | 2025-01-26 13:40 | HPS.HSE ---
Addendum entered and electronically signed by Sarah Leo MD 01/26/25 14:54:
This is an addendum to H&P written by Ilsa Phillip on 01/26/25. �Patient seen and examined independently with [facility].
74-year-old female past medical history of left ankle ORIF last year complicated by infected hardware status post removal at [facility], hypertension, hyperlipidemia, type 2 diabetes, history of sepsis/bacteremia secondary to MSSA Staph
aureus of left thigh/iliopsoas abscess status post drain, presenting with fever of 102.2 days ago, generalized weakness, and fall twice today. �No head injury.
A week and a half ago she developed wound of left ankle and redness and swelling.
Vitals show mild tachycardia 106.
Labs show bicarb of 18. �White cell count 24.
CT head shows no acute intracranial normality. �CT cervical spine shows no acute fracture. �Femur x-ray pending.
Patient with cellulitis of left ankle. �Blood cultures pending. �IV fluids. �Vancomycin/Zosyn given. �ID consulted given complex history of ORIF status post infected hardware status post removal.
Original Note:
Family Physician
-
Family Physician: Leyla Burdick
Chief Complaint
-
left LE wound, fever, chills.
History of Present Illness
74-year-old female with pMH fot HLd, type 2 Dm, iron def anemia presented to us with fever for past two day. it was high as 102 at home. she was taking Tylenol. denied cough, congestion, runny nose, chest pain, sob. denied AMADO, dizzy or syncope.
patient stated very weak for past two days. she had a fall twice today. denied hitting head on the floor. patient complained of chills. she wears brace on her left foot since ORIF last year. the brace rubs on her skin and noted a wound a week and
half ago. but recently she noticed worsening swelling, redness and pain in her left foot.
patient recived a dose of vanco and zosyn in ER.admitting for further management.
Medical History
Past Medical History
Past Medical History: Reports Other
Additional Past Medical History:
Hypertension, Hypercholesterolemia, type 2 diabetes, bilateral cataract
Past Surgical History: Reports Other
Additional Past Surgical History:
Total right hip replacementLeft hip replacement, knee replacement, tonsillectomy right total hip replacement Mohs surgery left ankle ORIF, left ankle hardware removal
Social History
Tobacco: Non-smoker
Alcohol: None
Drug: None
Family History
Family History: Not pertinent
Allergies / Home Medications
Allergies reflects when Allergies were last updated in [facility].
Home Medications with original date entered in [employer]
Allergy/Medication List:
Allergies
Allergy/AdvReac Type Severity Reaction Status Date / Time
TAPE Allergy Unknown skin Uncoded 01/26/25 09:19
blisters
Home Medications
glyburide 2.5 mg-metformin 500 mg tablet 2 tab PO BID 05/24/08
atorvastatin 10 mg tablet 10 mg PO QPM 07/31/16
Lactobac no.2-Bifidobac no.1-S. thermo 112.5 billion cell capsule (Visbiome) 1 cap PO DAILY 01/26/25
acetaminophen 325 mg tablet (Tylenol) 650 mg PO Q4H PRN MILD PAIN 01/26/25
cholecalciferol (vitamin D3) 25 mcg (1,000 unit) tablet (Vitamin D3) 25 mcg PO DAILY 01/26/25
cranberry fruit 450 mg tablet (cranberry) 450 mg PO DAILY 01/26/25
ferrous sulfate 325 mg (65 mg iron) tablet 325 mg PO DAILY 01/26/25
metoprolol succinate 25 mg tablet,extended release 24 hr 25 mg PO DAILY 01/26/25
Review of Systems
-
Constitutional: Reports Fever, Fatigue and Chills
EENT: Reports No Symptoms
Respiratory: Reports No Symptoms
Cardiac: Reports No Symptoms
Abdomen/GI: Reports No Symptoms
: Reports No Symptoms
Musculoskeletal: Reports No Symptoms
Skin: Reports Other (left foot wound ,redness, swelling)
Neurological: Reports No Symptoms
Endocrine: Reports No Symptoms
Hematologic/Lymphatic: Reports No Symptoms
Psych: Reports No Symptoms
Physical Exam
Vital Signs
Vital Signs
Temp Pulse Resp BP Pulse Ox
100.0 F 92 20 130/63 90
01/26/25 12:34 01/26/25 12:30 01/26/25 12:30 01/26/25 12:11 01/26/25 12:30
Physical Exam
General: Well Developed, Well Nourished and No Apparent Distress
HEENT: NormoCephalic, Moist mucous membranes and Atraumatic
Respiratory: Clear
Cardiac: S1/S2 and Regular Rhythm; No Murmur or Rub
GI: Soft, Non Tender, Non Distended and Normal Bowel Sounds; No Organomegaly
Rectal: Deferred by Provider
Musculoskeletal: No Clubbing, No Cyanosis and No Edema
Skin: Rash and Other (left foot redness, wound, swelling, warm to touch)
Neuro: AO x 3 and Nonfocal/grossly intact
Psych: Calm
Laboratory Results
-
01/26/25 09:22
01/26/25 09:22
Laboratory Results
Lactic Acid Cancelled 01/26/25 13:30
Total Bilirubin 0.9 mg/dl (0.2-1.3) 01/26/25 09:22
AST 21 U/L (14-36) 01/26/25 09:22
ALT 14 U/L (0-35) 01/26/25 09:22
Alkaline Phosphatase 82 U/L (38-126) 01/26/25 09:22
Data Reviewed
-
Diagnostic Radiology: Report Reviewed by me
CT Scan: Report Reviewed by me
Lab Data: Labs Reviewed by me
Impression/Plan
-
#Left lower extremities cellulitis
#hxt of left ankle ORIF, and hardware removal
- Vancomycin, Zosyn continue
- Tylenol as needed for fever or pain
-WBCs 24.2
-Chest x-ray negative
- Blood culture sent from ER
-UA pending
-ID consult
#Fall secondary to weakness
- PT OT consulted
-Femur x-ray pending
head CT negative
Cervical spine CT negative chest x-ray with no acute cardiopulmonary process. Mild cardiomegaly without congestive heart failure
#HLD
-statin continued
#type 2 Dm
-hold glyburide-metformin
-sliding scale
-CHO diet
#essential HTN
-metoprolol continued
#DVT prophylaxis
-Lovenox
#CODE status
-full code
[2025-01-26 13:58] LABS: Urine Character Slightly Cloudy (Clear)
[2025-01-26 14:18] LABS: Urine Squamous Cell 0-2 /LPF (Few)
--- NOTE | 2025-01-26 14:18 | EDRN ---
Johnathon in place, hospitalist is at bedside working on orders, informed him that her temp is back up for more fever control medication, call charles in reach.
[2025-01-26 14:19] LABS: Urine Red Blood Cell 50-60 /HPF (0-2)
[2025-01-26 14:20] LABS: Urine White Cell 40-50 /HPF (0-5)
[2025-01-26] MEDS: MOTRIN 600 MG PO (14:31)
--- NOTE | 2025-01-26 16:48 | CON.ID ---
Consultation
-
Date/Time Consultation Requested: 01/26/2025 1419
Date/Time Consultation Performed: 01/26/2025 1630
Requesting Provider: Ilsa Phillip
Performing Provider: Dr. Akins
Reason for Consultation: Leukocytosis; left leg infection
Chief Complaint / Past History
History of Present Illness
Sarah Campos is a 74-year-old female being evaluated at the request of Ilsa Phillip regarding left leg cellulitis and leukocytosis. History is obtained from chart review, along with patient interview.
The patient reports that in November 2023 she fell, fracturing her left ankle. She subsequently required ORIF of the ankle. Subsequently, the hardware was found to be infected, and hardware was removed and March 2024, after which she was placed
on a 6-week course of antibiotics. During this period of time she was in [facility], but in November she was discharged to home. Over the past couple days she reports that she has been having fever and increasing left ankle discomfort. She
reports that she struck her left face, but no reported loss of consciousness. Because of the fall, she ultimately came to the hospital for further evaluation. She denies any dysuria or hematuria. She denies any erythema extending up her left leg.
She notes that she uses a left ankle brace, and reports that it has been somewhat ill fitting, and she has an appointment for refitting. Currently she notes discomfort in the lateral aspect and the posterior aspect of her left ankle. She notes no
wounds, though.
Past History
Additional Past Medical History:
HLD
DM
Bilateral cataracts
Hx left ankle osteomyelitis
Additional Past Surgical History:
Left ankle ORIF with subsequent explantation of hardware
Bilateral hip replacement
Bilateral knee replacement
Allergy History:
adhesive tape Allergy (Verified 01/26/25 16:17)
SKIN BLISTERS
Medications Reviewed: Yes
Social History
Tobacco: Non-Smoker
Alcohol: None
Drug: None
Personal: Single
Living: Alone
Employment: Retired
Family History
Family History: Not Pertinent
Review of Systems
Vital Signs
Temp Pulse Resp BP Pulse Ox
99.6 F 91 16 99/44 91
01/26/25 16:19 01/26/25 16:19 01/26/25 16:19 01/26/25 16:19 01/26/25 16:19
Physical Exam
Physical Exam
Constitutional: No Acute Distress, Comfortable, Chronically Ill, Non-toxic and Obese
Eyes: No Conjunctival Hemorrhage and Sclera Anicteric
Oral: No Thrush and No Ulcers
Cardiovascular: Regular Rate and S1/S2; Negative S3/S4
Pulmonary: Clear; Negative Wheezes, Rales or Rhonchi
Gastrointestinal: Soft, Non Tender, Non Distended and Normal Bowel Sounds
Extremities: Edema (LLE) and Erythema (LLE ankle with sig tenderness); Negative Cyanosis
Skin: Warm and Dry; Negative Rash or Jaundice
Neurological: Awake and Alert
Lab / Diagnostic Study Results
01/26/25 09:22
01/26/25 09:22
Abs Immat Gran (auto) 0.2 10^3/uL (0-0.05) H 01/26/25 09:22
Absolute Neuts (auto) 21.6 10^3/uL (1.4-6.5) H 01/26/25 09:22
Absolute Lymphs (auto) 0.6 10^3/uL (1.2-3.4) L 01/26/25 09:22
Absolute Monos (auto) 1.7 10^3/uL (0.1-0.6) H 01/26/25 09:22
Absolute Basos (auto) 0.1 10^3/uL (0-0.2) 01/26/25 09:22
Immature Gran % 0.9 % (0-0.5) H 01/26/25 09:22
Neutrophils % 89.4 % (42.2-75.2) H 01/26/25 09:22
Lymphocytes % 2.4 % (20.5-51.1) L 01/26/25 09:22
Monocytes % 7.1 % (1.7-9.3) 01/26/25 09:22
Eosinophils % 0.0 % (0-6) 01/26/25 09:22
Basophils % 0.2 % (0-2) 01/26/25 09:22
Lactic Acid Cancelled 01/26/25 13:30
Ur Squamous Epith Cells 0-2 /LPF (Few) 01/26/25 13:50
Microbiology Results
Micro:
01/26/25 13:50 Urine Culture - Pending
Urine
01/26/25 09:22 Influenza Types A & B (MAUREEN) - Final
Nasal Swab Negative for Influenza A & B, NAAT
Negative results must be combined with clinical observations
and patient history.
Nucleic Acid Amplification test (NAAT)performed on the
[employer] ID NOW platform.
01/26/25 09:22 Blood Culture - Pending
Blood/Venous
01/26/25 09:22 Blood Culture - Pending
Blood/Venous
Assessment / Plan
Leukocytosis
Fever
Left lower extremity cellulitis
S/p fall
HLD
DM
Bilateral cataracts
Hx left ankle osteomyelitis
Recommendations:
Continue with empiric vancomycin.
Transition Zosyn to cefepime 1 gm IV q.6 hours
Follow pending blood cultures, urine culture.
Trend white count and temperature curve.
Check x-ray left ankle.
Follow Vanco levels closely to prevent nephrotoxicity.
Further recommendations as additional data is returned.
--- NOTE | 2025-01-26 16:49 | PHA.VAN.IN ---
Addendum entered and electronically signed by Sue Cerda RPH 01/26/25 17:00:
01/26 1700 ID [email or web address] PIPERACILLIN/TAZO and started pt on CEFEPIME.
Original Note:
Assessment
- Assessment
Renal Function: Appears similar to baseline
Concomitant Antimicrobials: PIPERACILLIN/TAZO
AUC Dosing Plan
- Empiric Dosing
Initial / Loading Dose: VANCOMYCIN 2000 MG IV ~ 1230
Maintenance Regimen: VANCOMYCIN 1250 MG IV Q12H
Estimated AUC (mcg*h/mL): 489.1
Estimated Peak (mcg*h/mL): 30.3
Estimated Trough (mcg/ml): 12.7
Estimated Half Life (H): 8.3
- Monitoring
No levels ordered at this time: Please consider levels in next few days.
Pharmacokinetics Vancomycin I
- -
Patient Age: 74
Patient Sex: Female
Vancomycin Day #: 1
Indication: Skin And Soft Tissue
Requesting Provider: Kenji STRONG
Height / Weight:
Height 5 ft 7 in
Actual Weight 93.185 kg
Pertinent Past Medical History: IDDM patient with cellulitis of left ankle.
- Vital Signs / Lab Results
Temp Pulse Resp BP Pulse Ox
99.6 F 91 16 99/44 91
01/26/25 16:19 01/26/25 16:19 01/26/25 16:19 01/26/25 16:19 01/26/25 16:19
Lab Results - Hematology
01/26/25
09:22
WBC 24.2 H
Lab Results - Chemistry
01/26/25
09:22
BUN 12
Creatinine 0.6
Estimated Creat Clear 96
Albumin 3.8
01/26/25 01/26/25
09:22 13:30
Lactic Acid 1.4 Cancelled
Lab Results - Urine
01/26/25
13:50
Urine Nitrite (Reflex) Positive A
Leukocyte Esterase Rfl 1+ A
Urine WBC (Reflex) 40-50 A
Ur Squamous Epith Cells 0-2
Urine Bacteria (Reflex) Many A
Microbiology Results
01/26/25 09:22 Influenza Types A & B (MAUREEN) - Final
Nasal Swab Negative for Influenza A & B, NAAT
Negative results must be combined with clinical observations
and patient history.
Nucleic Acid Amplification test (NAAT)performed on the
[employer] NOW platform.
--- NOTE | 2025-01-26 17:35 | PTCARENOTE ---
Rn household coordinator- Patient's admission assessment completed. Patient requesting a visit from the [facility], this nusrse called and left a message. Patient qualifies as fall risk. Primary care nurse isabel notified. Fall risk band applied.
[2025-01-26] MEDS: LOVENOX 40 MG SC (17:50)
[2025-01-26] MEDS: STERILE WATER FOR INJECTION 10 ML IV ×2 (17:51→23:29)
[2025-01-26] MEDS: LIPITOR 10 MG PO (17:51)
[2025-01-26] MEDS: MAXIPIME 1000 MG IV ×2 (17:51→23:33)
[2025-01-26] MEDS: TYLENOL 650 MG PO ×2 (18:01→22:34)
[2025-01-26 18:14] LABS: Glucose - Point of Care 111 mg/dl (70-99)
[2025-01-26] MEDS: NOVOLOG FLEXPEN-LOW RESISTANCE SC (18:18)
--- NOTE | 2025-01-26 18:22 | PTCARENOTE ---
Received patient from ED AAOX3. Pt oriented to room. IVF started as ordered. Pt offered no complaints. Made patient comfortable. Cont to assess patient status.
[2025-01-26 21:15] LABS: Glucose - Point of Care 181 mg/dl (70-99)
[2025-01-26] MEDS: DESENEX/MITRAZOL/ZEASORB 1 APPLIC TOPICAL (22:36)
[2025-01-27 03:00] VITALS: BP 115/45
[2025-01-27] MEDS: TYLENOL 650 MG PO ×4 (03:07→23:30)
[2025-01-27] MEDS: MAXIPIME 1000 MG IV ×2 (05:26→13:00)
[2025-01-27] MEDS: STERILE WATER FOR INJECTION 10 ML IV ×2 (05:26→12:59)
[2025-01-27] MEDS: VANCOCIN 275 MG IV ×2 (05:27→18:36)
[2025-01-27] MEDS: NSS 1000 IV (05:38)
[2025-01-27 07:25] VITALS: BP 112/64
[2025-01-27 07:29] LABS: Glucose - Point of Care 94 mg/dl (70-99)
[2025-01-27] MEDS: NOVOLOG FLEXPEN-LOW RESISTANCE SC ×2 (08:47→16:35)
[2025-01-27] MEDS: FEOSOL 325 MG PO (08:49)
[2025-01-27] MEDS: VITAMIN D3 (cholecalciferol) 25 MCG PO (08:49)
[2025-01-27] MEDS: TOPROL XL 25 MG PO (08:49)
[2025-01-27] MEDS: VISBIOME 1 CAP PO (08:49)
[2025-01-27] MEDS: DESENEX/MITRAZOL/ZEASORB 1 APPLIC TOPICAL ×2 (08:51→21:29)
[2025-01-27 09:21] LABS: Hematocrit 31.0 % (37.0-47.0); Hemoglobin 10.2 g/dL (12.0-16.0); Mean Corp Hgb Conc. 32.9 g/dL (33.0-37.0); Mean Corpuscular Volume 79.5 fL (81.0-99.0); Platelet Count 175 10^3/uL (130-400); Red Cell Dist. Width 17.0 % (11.5-14.5)
[2025-01-27 09:54] LABS: Blood Urea Nitrogen 15 mg/dl (7-17); Calcium 7.9 mg/dl (8.4-10.2); Carbon Dioxide 17 mmol/L (22-30); Chloride 109 mmol/L (98-107); Estimated Creatinine Clearance 81 ml/min; Glucose 97 mg/dl (70-99); Potassium 3.2 mmol/L (3.5-5.1); Sodium 135 mmol/L (135-145); eGFR > 60.00
--- NOTE | 2025-01-27 10:04 | PHA.VAN.FU ---
Vancomycin Assessment / Plan
- Assessment
Renal Function: Stable
WBC's are: Trending Down
In the past 24 hrs, patient has been: Afebrile
Concomitant Antimicrobials: cefepime
- Dosing Plan
Continue: Vanc 1250mg Q12H
- Monitoring Plan
No level(s) ordered at this time: consider levels in next few days
- Follow Up
Pharmacy will continue to follow.
Vancomycin Follow UP
- -
Patient Age: 74
Patient Sex: Female
Vancomycin Day #: 2
Indication: Skin And Soft Tissue
Requesting Provider: Kenji STRONG / Dr. Akins
Pertinent Antimicrobial Allergies:
no pertinent antibiotic allergies
Height / Weight:
Height 5 ft 7 in
Actual Weight 93.185 kg
Pertinent Past Medical History: BMI ~32, DM 2
- Vital Signs / Lab Results
Temp Pulse Resp BP Pulse Ox
100.8 F H 100 18 112/64 93
01/27/25 07:25 01/27/25 08:49 01/27/25 07:25 01/27/25 08:49 01/27/25 07:25
Lab Results - Hematology
01/26/25 01/27/25
09:22 08:41
WBC 24.2 H 11.4 H
Lab Results - Chemistry
01/26/25 01/27/25
09:22 08:41
BUN 12 15
Creatinine 0.6 0.7
Estimated Creat Clear 96 81
Albumin 3.8
01/26/25 01/26/25
09:22 13:30
Lactic Acid 1.4 Cancelled
Lab Results - Urine
01/26/25
13:50
Urine Nitrite (Reflex) Positive A
Leukocyte Esterase Rfl 1+ A
Ur Squamous Epith Cells 0-2
Microbiology Results
01/26/25 09:22 Blood Culture - Preliminary
Blood/Venous Staph aureus MRSA
Gram Stain - Final
01/26/25 09:22 Blood Culture - Preliminary
Blood/Venous Positive culture in progress
Gram Stain - Preliminary
01/26/25 09:22 Influenza Types A & B (MAUREEN) - Final
Nasal Swab Negative for Influenza A & B, NAAT
Negative results must be combined with clinical observations
and patient history.
Nucleic Acid Amplification test (NAAT)performed on the
[employer] platform.
--- NOTE | 2025-01-27 10:26 | WOUNDNOTE ---
LEFT MEDIAL ANKLE
--- NOTE | 2025-01-27 10:27 | WOUNDNOTE ---
LEFT LATERAL ANKLE
--- NOTE | 2025-01-27 10:34 | WOUNDNOTE ---
[facility] RN NOTE: Reviewed chart and met with patient. Patient with chronic osteo to to left ankle. She has a scabbed and reddened area to her left medial ankle. Per chart review and patient report, patient wears ankle brace that is ill fitting and
causing pressure and friction to left medical ankle. Patient has an appointment with [facility] to get brace re-fitted. The area is closed and dry and silicone foam was applied for protection. Staff using Desenex powder to fungal appearing skin in
groin and abdominal folds. Heels and sacrum intact. Purwick in place for moisture management. A static air overlay was applied during assessment as patient demonstrates poor mobility and ability to turn in bed. Sacrum was not able to be off-loaded
with static overlay so an air mattress was ordered. This blog writer spoke to Richardson del castillo who will deliver bed. RN's Gutierrez made aware. Will sign off.
[2025-01-27 10:45] LABS: Hepatitis C Antibody Negative (Negative)
[2025-01-27] MEDS: KCL 40 MEQ PO (11:00)
[2025-01-27 11:08] LABS: Magnesium 1.7 mg/dl (1.6-2.3)
[2025-01-27 11:16] VITALS: BP 102/42
[2025-01-27 11:31] LABS: Glycohemoglobin (HgbA1c) 5.9 % (4.0-5.9)
[2025-01-27 11:51] LABS: Glucose - Point of Care 227 mg/dl (70-99)
[2025-01-27] MEDS: KCL 20 MEQ PO (12:48)
[2025-01-27] MEDS: NOVOLOG FLEXPEN-LOW RESISTANCE 2 UNITS SC (13:09)
--- NOTE | 2025-01-27 13:09 | W.PN.ID1 ---
Date of Service
Date of Service: January 27, 2025
Today's Communication
Continue vancomycin. Discontinue further cefepime. Follow repeat blood cultures.
Assessment / Plan
Leukocytosis
Fever
Left lower extremity cellulitis
Right knee pain/swelling
Bacteremia with MRSA
S/p fall
HLD
DM
Bilateral cataracts
Hx left ankle osteomyelitis
Recommendations:
Continue with empiric vancomycin.
Discontinue further cefepime
Repeat blood cultures ordered. Will follow for clearance.
Trend white count and temperature curve.
Follow Vanco levels closely to prevent nephrotoxicity.
Ortho has been consulted regarding right knee discomfort; await input.
����������������������������������������������������������
Chief Complaint
-: Clinical Sepsis and Bacteremia
Subjective / Review of Systems
Review of Systems: No Fever and No Chills
Vital Signs / Physical Exam
Vital Signs
Vital Signs
Temp Pulse Resp BP Pulse Ox
98.1 F 85 18 102/42 92
01/27/25 11:16 01/27/25 11:16 01/27/25 11:16 01/27/25 11:16 01/27/25 11:16
Physical Exam
Constitutional: No Acute Distress, Comfortable and Non-toxic
Eyes: No Conjunctival Hemorrhage and Sclera Anicteric
Cardiovascular: Regular Rate and S1/S2; Negative S3/S4
Pulmonary: Clear; Negative Wheezes or Rales
Gastrointestinal: Soft and Non Tender
Extremities: Edema (Bilateral lower extremity) and Erythema (Left ankle area)
Musculoskeletal: Joint Swelling (Right knee)
Neurological: Awake and Alert
Psychological: Calm
Objective Data
Lab Data
Lab Results
01/27/25 08:41
01/27/25 08:41
Estimated Creat Clear 81 ml/min 01/27/25 08:41
Lactic Acid Cancelled 01/26/25 13:30
Total Bilirubin 0.9 mg/dl (0.2-1.3) 01/26/25 09:22
AST 21 U/L (14-36) 01/26/25 09:22
ALT 14 U/L (0-35) 01/26/25 09:22
Alkaline Phosphatase 82 U/L (38-126) 01/26/25 09:22
Most recent labs reviewed.
Micro Results:
01/27/25 11:15 Blood Culture - Pending
Blood/Venous
01/26/25 09:22 Blood Culture - Preliminary
Blood/Venous Staph aureus MRSA
Gram Stain - Final
01/26/25 09:22 Blood Culture - Preliminary
Blood/Venous Positive culture in progress
Gram Stain - Preliminary
01/26/25 13:50 Urine Culture - Pending
Urine
01/26/25 09:22 Influenza Types A & B (MAUREEN) - Final
Nasal Swab Negative for Influenza A & B, NAAT
Negative results must be combined with clinical observations
and patient history.
Nucleic Acid Amplification test (NAAT)performed on the
[employer] platform.
Imaging:
01/26/2025 x-ray left ankle: Bony destruction of the talar dome, sparing the distal talus. Findings very likely represents sequela of osteomyelitis, new since examination 2017. There is some bony loss involving the distal tibia and fibula, which is
also likely from osteomyelitis. Periosteal new bone formation involving the distal tibia and fibula, likely findings of chronic osteomyelitis.
Care Review
Plan reviewed with: Physician (Hospitalist)
[2025-01-27] MEDS: ROXICODONE 5 MG PO (13:11)
--- NOTE | 2025-01-27 13:17 | W.PN.HOSP.TC ---
Today's Communication/Plan
-
- Consulted Ortho, podiatry
- Pain management as needed
- Ordered knee immobilizer per orthopedic recommendations
- Infectious disease following. Blood cultures positive for Staph aureus. Continue vancomycin, discontinue cefepime
- Trend WBC, temperature curve
- Continue to follow blood cultures
- Ordered echo
Assessment / Plan
Assessment / Plan
#Left lower extremity cellulitis
#History of left ankle ORIF, with associated infection and hardware removal
- ID consulted
- Patient started on vancomycin and cefepime
- Blood cultures positive for Staph aureus
- WBC 24.2 yesterday, 11.4 today
#Fall secondary to weakness
- Femur x-ray indicating slightly displaced femur fracture
- Consulted orthopedics for right femur
- Consulted podiatry for left ankle/foot as suggested by orthopedics
- Ordered knee immobilizer for right femur
- Pain management as needed
- CT head negative, CT cervical spine negative
#HLD
- Continue statin
#Type 2 diabetes
- Holding glyburide, metformin
- Sliding scale insulin
- Diabetic diet
#Hypertension
- Continue metoprolol
Diet: Diabetic diet
DVT PPx: Lovenox
CODE STATUS: Full code
Anticipated Discharge: > 48 hours
Subjective/Interval History
-
Date of Service: January 27, 2025
Patient seen this morning at the bedside. Patient is now complaining of right leg and knee pain.
Objective Data
-
Labs:
Laboratory Results
01/27/25
08:41
WBC 11.4 H
Hgb 10.2 L
Hct 31.0 L
Plt Count 175 D
Sodium 135
Potassium 3.2 L
Chloride 109 H
Carbon Dioxide 17 L
BUN 15
Creatinine 0.7
Glucose 97
Calcium 7.9 L
Vital Signs:
Vital Signs
Temp Pulse Resp BP Pulse Ox
98.1 F 85 18 102/42 92
01/27/25 11:16 01/27/25 11:16 01/27/25 11:16 01/27/25 11:16 01/27/25 11:16
I&O
01/26/25 01/27/25 01/28/25
06:59 06:59 06:59
Intake Total 940 / 940
Output Total 300 / 300
Balance 640 / 640
Review of Systems
-
History Source: Patient
Constitutional: Reports No Symptoms
EENT: Reports No Symptoms Reported
Respiratory: Reports No Symptoms
Cardiac: Reports No Symptoms
Abdomen/GI: Reports No Symptoms
Breast: Reports No Symptoms
Genitourinary: Reports No Symptoms
Musculoskeletal: Reports Joint Pain (Left ankle, right knee) and Joint Swelling (Right knee, nontender or warm to touch)
Skin: Reports Other (Redness, skin irritation on left ankle and foot)
Neuro: Reports No Symptoms
Endocrine: Reports No Symptoms
Hematologic / Lymphatic: Reports No Symptoms
Allergy / Immunology: Reports No Symptoms
Psych: Reports Sad
Physical Exam
-
General: Well Developed, Well Nourished and Other (Uncomfortable)
HEENT: Normocephalic, Atraumatic and Moist Mucous Membranes
Respiratory: Clear to Auscultation
Cardiac: Regular Rhythm
GI: Soft, Nontender and Nondistended
Musculoskeletal: Other (Left ankle erythematous, edematous, with crusty yellow plaques)
Skin: Warm and Dry
Neuro: Awake, Alert and Oriented
Psych: Calm
--- NOTE | 2025-01-27 13:17 | W.PN.UPDATE ---
Update Note
Progress Note Update
74F L ankle charcot vs underlying OM
- NWB LLE
- L ankle MRI eval for charcot vs OM
- continue abx per ID
- elevate extremity 2-3 pillows
- full consult note to follows
--- NOTE | 2025-01-27 14:51 | W.PN.UPDATE ---
Update Note
Progress Note Update
Patient seen and discussed with residents.
HPI: 74-year-old female with past medical history of left ankle ORIF last year complicated by infected hardware status post removal at [facility], hypertension, hyperlipidemia, type 2 diabetes, history of left thigh lesion s/p ultrasound
guided biopsy in 2019, p/w fever of 102, generalized weakness, and fall. No head injury.
A week and a half ago [facility] [employer], she developed wound of left ankle with redness and swelling.
A/P:
# sepsis POA with MRSA bacteremia, source likely Left lower extremity cellulitis/ L ankle OM
# History of left ankle ORIF with associated infection and hardware removal
L ankle XR showed very likely sequela of osteomyelitis, new since examination 2017.
Check MRI L Ankle
Admission blood cultures growing MRSA. Follow blood cultures until clearance
Continue with empiric vancomycin. Off cefepime per ID
Check empiric echo
ID on board
Ortho consulted, podiatry consulted
# R knee slightly displaced fracture superior medial margin of the medial femoral condyle.
# Fall secondary to weakness
Stabilized with immobilizer
Pain control
Ortho consult
PT OT eval
# HLD
Continue statin
# Type 2 diabetes
Holding glyburide, metformin
Sliding scale insulin
Diabetic diet
# Hypertension
Continue metoprolol
Diet: Diabetic diet
DVT PPx: Lovenox SQ
CODE STATUS: Full code
Discussed with ID
Total time 51 minutes
[2025-01-27 15:50] VITALS: BP 147/63
[2025-01-27] MEDS: MAGNESIUM SULFATE 102 GRAMS IV (15:59)
[2025-01-27 16:44] LABS: Glucose - Point of Care 103 mg/dl (70-99)
[2025-01-27] MEDS: LOVENOX 40 MG SC (18:35)
[2025-01-27] MEDS: LIPITOR 10 MG PO (18:36)
[2025-01-27] MEDS: STERILE WATER FOR INJECTION IV (19:11)
--- NOTE | 2025-01-27 19:15 | PTCARENOTE ---
Received patient this am AAOx3. IVF infusing without difficulty. Pure wick draining domenico urine. Leaking around. Pt incontinent x3 moderate amounts. Pt scheduled for Echo today. Pt refused to go secondary to RLE hurting. Dr. Hadley made aware. Echo
department rescheduled patient for Thursday. Pt complained of pain this am in RLE. Medicated oxy with mild to moderate relief. Pt's temp 100.8 this am, 98.1 then 101.4. Pt medicated with Tylenol Po. Pt tolerated diet well. Made patient comfortable.
Cont to assess patient status.
[2025-01-27 19:51] VITALS: BP 105/52
[2025-01-27 21:40] LABS: Glucose - Point of Care 119 mg/dl (70-99)
[2025-01-27] MEDS: ULTRAM 50 MG PO (21:46)
[2025-01-27 23:27] VITALS: BP 110/50
[2025-01-28] MEDS: NSS 1000 IV (00:44)
[2025-01-28] MEDS: STERILE WATER FOR INJECTION IV (01:21)
[2025-01-28 03:50] VITALS: BP 104/50
[2025-01-28] MEDS: VANCOCIN 275 MG IV ×2 (05:53→17:37)
[2025-01-28 07:07] VITALS: BP 136/72
[2025-01-28] MEDS: FEOSOL 325 MG PO (07:46)
[2025-01-28] MEDS: VITAMIN D3 (cholecalciferol) 25 MCG PO (07:46)
[2025-01-28] MEDS: VISBIOME 1 CAP PO (07:46)
[2025-01-28] MEDS: ULTRAM 50 MG PO (07:47)
[2025-01-28] MEDS: DESENEX/MITRAZOL/ZEASORB 1 APPLIC TOPICAL ×2 (07:47→21:02)
[2025-01-28] MEDS: TOPROL XL 25 MG PO (07:49)
[2025-01-28 08:53] LABS: Glucose - Point of Care 104 mg/dl (70-99)
[2025-01-28] MEDS: NOVOLOG FLEXPEN-LOW RESISTANCE SC ×3 (09:14→17:37)
[2025-01-28] MEDS: NSS IV (09:15)
[2025-01-28 11:04] VITALS: BP 128/65
--- NOTE | 2025-01-28 11:22 | W.PN.ID1 ---
Date of Service
Date of Service: January 28, 2025
Today's Communication
Continue antibiotics
Assessment / Plan
Leukocytosis
Fever
Left lower extremity cellulitis
Right knee pain/swelling
MRSA bacteremia
S/p fall
Right knee displaced fracture (medial femoral condyle)
HLD
DM
Bilateral cataracts
Hx left ankle osteomyelitis
Recommendations:
Continue with empiric vancomycin.
Repeat blood cultures ordered. Will follow for clearance.
Trend white count and temperature curve.
Follow Vanco levels closely to prevent nephrotoxicity.
Await MRI left lower extremity
����������������������������������������������������������
Chief Complaint
-: Clinical Sepsis and Bacteremia
Subjective / Review of Systems
Patient seen and examined. Temperature somewhat improved. Ongoing pain in the left ankle area. Pain also noted in right knee
Vital Signs / Physical Exam
Vital Signs
Vital Signs
Temp Pulse Resp BP Pulse Ox
98.2 F 72 18 136/72 97
01/28/25 07:07 01/28/25 07:07 01/28/25 07:07 01/28/25 07:07 01/28/25 07:07
Physical Exam
Constitutional: No Acute Distress, Comfortable and Non-toxic
Eyes: No Conjunctival Hemorrhage and Sclera Anicteric
Cardiovascular: Regular Rate, S1/S2 and Murmur; Negative S3/S4
Pulmonary: Clear; Negative Wheezes or Rales
Gastrointestinal: Soft and Non Tender
Extremities: Edema (Bilateral lower extremity) and Erythema (Left ankle area)
Musculoskeletal: Joint Swelling (Right knee)
Neurological: Awake and Alert
Psychological: Calm
Objective Data
Lab Data
Estimated Creat Clear 81 ml/min 01/27/25 08:41
Lactic Acid Cancelled 01/26/25 13:30
Total Bilirubin 0.9 mg/dl (0.2-1.3) 01/26/25 09:22
AST 21 U/L (14-36) 01/26/25 09:22
ALT 14 U/L (0-35) 01/26/25 09:22
Alkaline Phosphatase 82 U/L (38-126) 01/26/25 09:22
Most recent labs reviewed.
Micro Results:
01/26/25 09:22 Blood Culture - Preliminary
Blood/Venous Positive culture in progress
Gram Stain - Preliminary
01/26/25 09:22 Blood Culture - Preliminary
Blood/Venous Staph aureus MRSA
Gram Stain - Final
01/26/25 13:50 Urine Culture - Final
Urine No Significant Growth
01/27/25 11:15 Blood Culture - Pending
Blood/Venous
01/26/25 09:22 Influenza Types A & B (MAUREEN) - Final
Nasal Swab Negative for Influenza A & B, NAAT
Negative results must be combined with clinical observations
and patient history.
Nucleic Acid Amplification test (NAAT)performed on the
[employer] platform.
Imaging:
01/26/2025 x-ray left ankle: Bony destruction of the talar dome, sparing the distal talus. Findings very likely represents sequela of osteomyelitis, new since examination 2017. There is some bony loss involving the distal tibia and fibula, which is
also likely from osteomyelitis. Periosteal new bone formation involving the distal tibia and fibula, likely findings of chronic osteomyelitis.
--- NOTE | 2025-01-28 11:48 | W.PN.HOSP.TC ---
Today's Communication/Plan
-
- Ankle MRI today per podiatry recommendations
- Awaiting Ortho recommendations for right slightly displaced femur fracture
- Pain management as needed
- Continue antibiotics
- Follow blood cultures, WBC, ID following
- Echo scheduled for Thursday
Assessment / Plan
Assessment / Plan
#Left lower extremity cellulitis
#History of left ankle ORIF, with associated infection and hardware removal
- ID consulted and following
- Patient started on vancomycin and cefepime, DC'd cefepime due to blood culture result
- Blood culture X1 positive for Staph aureus, MRSA
- Blood culture X1 from 01/27 pending
- WBC 24.2 on admission, blood work pending today
#Fall secondary to weakness
- Femur x-ray indicating slightly displaced femur fracture
- Consulted orthopedics for right femur
- Consulted podiatry for left ankle/foot as suggested by orthopedics
- Knee immobilizer for right femur
- Pain management as needed
- CT head negative, CT cervical spine negative
- Podiatry ordered left ankle MRI to assess osteomyelitis VS. Charcot foot
- Urine culture negative
#HLD
- Continue statin
#Type 2 diabetes
- Holding glyburide, metformin
- Sliding scale insulin
- Diabetic diet
#Hypertension
- Continue metoprolol
Diet: Diabetic diet
DVT PPx: Lovenox
CODE STATUS: Full code
Anticipated Discharge: > 48 hours
Subjective/Interval History
-
Date of Service: January 28, 2025
Patient seen this morning at the bedside. Patient still complaining of pain which she rates a 7 out of 10 associated with her right knee and lower right thigh. Patient denies all other ROS.
Objective Data
-
Labs:
Laboratory Results
01/28/25
06:00
WBC Pending
Hgb Pending
Hct Pending
Plt Count Pending
Sodium Pending
Potassium Pending
Chloride Pending
Carbon Dioxide Pending
BUN Pending
Creatinine Pending
Glucose Pending
Calcium Pending
Vital Signs:
Vital Signs
Temp Pulse Resp BP Pulse Ox
98.2 F 72 18 136/72 97
01/28/25 07:07 01/28/25 07:07 01/28/25 07:07 01/28/25 07:07 01/28/25 07:07
I&O
01/27/25 01/28/25 01/29/25
06:59 06:59 06:59
Intake Total 940 / 940 2650 / 2650
Output Total 300 / 300 300 / 300
Balance 640 / 640 2350 / 2350
Review of Systems
-
History Source: Patient
Constitutional: Reports No Symptoms
EENT: Reports No Symptoms Reported
Respiratory: Reports No Symptoms
Cardiac: Reports No Symptoms
Abdomen/GI: Reports No Symptoms
Genitourinary: Reports No Symptoms
Musculoskeletal: Reports Other (Right lower extremity pain, 7 out of 10)
Skin: Reports No Symptoms
Neuro: Reports No Symptoms
Endocrine: Reports No Symptoms
Hematologic / Lymphatic: Reports No Symptoms
Allergy / Immunology: Reports No Symptoms
Psych: Reports Sad
Physical Exam
-
General: Well Developed, Well Nourished, No Apparent Distress and Pain (7 and 10 right lower extremity)
HEENT: Normocephalic, Atraumatic and Moist Mucous Membranes
Respiratory: Clear to Auscultation
Cardiac: Regular Rhythm
GI: Soft, Nontender and Nondistended
Musculoskeletal: Other (Left ankle edematous, everton bandage in place)
Skin: Warm and Dry
Neuro: Awake, Alert and Oriented
Psych: Calm
--- NOTE | 2025-01-28 12:17 | PHA.VAN.FU ---
Vancomycin Assessment / Plan
- Assessment
Renal Function: No New Labs Today (labs remain pending)
Concomitant Antimicrobials: cefepime
- Dosing Plan
Continue: Vanc 1250mg Q12H
- Monitoring Plan
No level(s) ordered at this time: consider levels in next few days
- Follow Up
Pharmacy will continue to follow.
Vancomycin Follow UP
- -
Patient Age: 74
Patient Sex: Female
Vancomycin Day #: 3
Indication: Skin And Soft Tissue
Requesting Provider: Kenji STRONG / Dr. Akins
Pertinent Antimicrobial Allergies:
no pertinent antibiotic allergies
Height / Weight:
Height 5 ft 7 in
Actual Weight 93.185 kg
Pertinent Past Medical History: BMI ~32, DM 2
- Vital Signs / Lab Results
Temp Pulse Resp BP Pulse Ox
98.2 F 77 18 128/65 94
01/28/25 11:04 01/28/25 11:04 01/28/25 11:04 01/28/25 11:04 01/28/25 11:04
Lab Results - Hematology
01/26/25 01/27/25
09:22 08:41
WBC 24.2 H 11.4 H
Lab Results - Chemistry
01/26/25 01/27/25
09:22 08:41
BUN 12 15
Creatinine 0.6 0.7
Estimated Creat Clear 96 81
Albumin 3.8
01/26/25 01/26/25
09:22 13:30
Lactic Acid 1.4 Cancelled
Microbiology Results
01/27/25 11:15 Blood Culture - Preliminary
Blood/Venous No Growth in 24 hours- Final report to follow
01/26/25 09:22 Blood Culture - Preliminary
Blood/Venous Positive culture in progress
Gram Stain - Preliminary
01/26/25 09:22 Blood Culture - Preliminary
Blood/Venous Staph aureus MRSA
Gram Stain - Final
01/26/25 13:50 Urine Culture - Final
Urine No Significant Growth
01/26/25 09:22 Influenza Types A & B (MAUREEN) - Final
Nasal Swab Negative for Influenza A & B, NAAT
Negative results must be combined with clinical observations
and patient history.
Nucleic Acid Amplification test (NAAT)performed on the
[employer] platform.
--- NOTE | 2025-01-28 12:23 | CON.ORTHO ---
Consultation
-
Date/Time Consultation Requested: 01/27/25
Date/Time Consultation Performed: 01/28/25
Performing Provider: Neida Lomas PA-C, for Dr. Leyla No
Reason for Consultation: Right femur fracture
Consultation - Orthopedics
History
HPI: Ms. Campos is a 74-year-old female who presented to [facility] after sustaining 2 separate falls at home on 01/26/2025. She has been dealing with a UTI that has made her weak. She states her initial fall occurred when she was
attempting to get out of her chair and she slid to the ground. She was able to get up, but then sustained a subsequent fall in which she landed directly on her bilateral knees. After that fall, she was unable to ambulate and had significant pain
in her right knee. She is also dealing with an infection of her left ankle and currently has cellulitis that podiatry has been consulted and to further evaluate. X-rays of her right knee demonstrated a supracondylar periprosthetic femur fracture.
She did have a right knee replacement performed under the direction of Dr. Gabriel in 2008. She has also undergone a left total knee arthroplasty and bilateral hip replacements, both of which were revised secondary to infection after suffering from
sepsis 8 years ago. She was placed in a knee immobilizer yesterday afternoon. Despite the immobilization, she continues with significant and excruciating pain in her right knee. This has not gotten any worse since admission, but has not been
getting any better with the pain medications. Our orthopedic specialty was consulted and to discuss recommendations going forward.
Medical History
Past Medical History
Past Medical History: Reports Other
Additional Past Medical History:
Hypertension, Hypercholesterolemia, type 2 diabetes, bilateral cataract
Past Surgical History: Reports Other
Additional Past Surgical History:
Total right hip replacement, Left hip replacement, knee replacement, tonsillectomy right total hip replacement Mohs surgery left ankle ORIF, left ankle hardware removal, revision B/L hip replacements for infection, B/L TKA (right 2008, left 2004)
Social History
Tobacco: Non-smoker
Alcohol: None
Drug: None
Family History
Family History: Not pertinent
Review of systems
All systems reviewed and negative except for those mentioned in HPI
Allergies / Home Medications
Allergy/AdvReac Type Severity Reaction Status Date / Time
adhesive tape Allergy SKIN Verified 01/26/25 16:17
BLISTERS
�Medication �Instructions �Recorded
glyburide 2.5 mg-metformin 500 mg 2 tab PO BID 05/24/08
tablet
atorvastatin 10 mg tablet 10 mg PO QPM 07/31/16
Lactobac no.2-Bifidobac no.1-S. 1 cap PO DAILY 01/26/25
thermo 112.5 billion cell capsule
(Visbiome)
acetaminophen 325 mg tablet 650 mg PO Q4H PRN MILD PAIN 01/26/25
(Tylenol)
cholecalciferol (vitamin D3) 25 25 mcg PO DAILY 01/26/25
mcg (1,000 unit) tablet (Vitamin
D3)
cranberry fruit 450 mg tablet 450 mg PO DAILY 01/26/25
(cranberry)
ferrous sulfate 325 mg (65 mg 325 mg PO DAILY 01/26/25
iron) tablet
metoprolol succinate 25 mg 25 mg PO DAILY 01/26/25
tablet,extended release 24 hr
Vital Signs / Lab Results
Temp Pulse Resp BP Pulse Ox
98.2 F 77 18 128/65 94
01/28/25 11:04 01/28/25 11:04 01/28/25 11:04 01/28/25 11:04 01/28/25 11:04
Physical examination:
General: Well-developed, well-nourished female in mild distress at rest. AO x 4.
HEENT: Atraumatic, normocephalic, neck supple.
Lungs: Nonlabored breathing on room air. No audible wheezing.
Heart: Regular rate and rhythm.
Right knee: Knee immobilizer in place. This was removed to reveal moderate diffuse swelling of the knee. Tenderness to palpation over medial femoral condyle. Well-healed surgical scar. Range of motion not tested due to known fracture. Calf is
soft and nontender to palpation.
Radiographic studies:
X-rays of the right knee demonstrate a minimally displaced supracondylar periprosthetic femur fracture. The components of the right knee replacement are intact and well-seated. No evidence of acute fracture or dislocation of the hip. Acetabular
spacer noted
Assessment / Plan
Assessment: Right periprosthetic supracondylar femur fracture.
Plan: Unfortunately, Ms. Campos sustained a periprosthetic supracondylar femur fracture during her fall several days ago. This is minimally displaced and currently amenable to nonsurgical intervention with full-time immobilization in a knee
immobilizer and nonweightbearing. She does report significant pain despite the immobilization, so I will add Vicodin to her pain management regimen as tramadol does not seem to be covering her pain. We did discuss that she will likely need a rehab
stay to accommodate her immobilization and nonweightbearing status. Our plan will be to see her back in the office in 2 weeks with repeat x-rays to check position and ensure no displacement. I will plan to check in on her tomorrow to evaluate pain
levels and see if repeat x-rays for position check are necessary prior to discharge from the hospital.
[2025-01-28 12:34] LABS: Glucose - Point of Care 88 mg/dl (70-99)
[2025-01-28 13:43] LABS: Hematocrit 29.4 % (37.0-47.0); Hemoglobin 9.6 g/dL (12.0-16.0); Mean Corp Hgb Conc. 32.7 g/dL (33.0-37.0); Mean Corpuscular Volume 78.4 fL (81.0-99.0); Platelet Count 180 10^3/uL (130-400); Red Cell Dist. Width 17.2 % (11.5-14.5)
[2025-01-28 13:57] LABS: Blood Urea Nitrogen 14 mg/dl (7-17); Calcium 8.3 mg/dl (8.4-10.2); Carbon Dioxide 19 mmol/L (22-30); Chloride 107 mmol/L (98-107); Estimated Creatinine Clearance 81 ml/min; Glucose 94 mg/dl (70-99); Potassium 3.4 mmol/L (3.5-5.1); Sodium 133 mmol/L (135-145); eGFR > 60.00
--- NOTE | 2025-01-28 14:11 | W.PN.UPDATE ---
Update Note
Progress Note Update
Discussed case with resident
HPI: 74-year-old female with past medical history of left ankle ORIF last year complicated by infected hardware status post removal at [facility], hypertension, hyperlipidemia, type 2 diabetes, history of left thigh lesion s/p ultrasound
guided biopsy in 2019, p/w fever of 102, generalized weakness, and fall. No head injury.
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
A/P:
# sepsis POA with MRSA bacteremia, source likely Left lower extremity cellulitis/ L ankle OM
# History of left ankle ORIF with associated infection and hardware removal
L ankle XR showed very likely sequela of osteomyelitis, new since examination 2017.
Check MRI L Ankle when able
Admission blood cultures growing MRSA. Follow blood cultures until clearance, appears to be clearing 01/27
Continue with empiric vancomycin. Off cefepime per ID
Check empiric echo
ID on board
podiatry on board
# R knee slightly displaced fracture superior medial margin of the medial femoral condyle.
# Fall secondary to weakness
Cont stabilization with immobilizer
Pain control
Ortho on board, recc full-time immobilization in a knee immobilizer and nonweightbearing.
PT OT eval
# HLD
Continue statin
# Type 2 diabetes
Holding glyburide, metformin
Sliding scale insulin
Diabetic diet
# Hypertension
Continue metoprolol
Diet: Diabetic diet
DVT PPx: Lovenox SQ
CODE STATUS: Full code
[2025-01-28] MEDS: NORCO 5/325 1 TABLET PO ×2 (14:26→19:08)
[2025-01-28 15:00] VITALS: BP 117/53
[2025-01-28] MEDS: TYLENOL PO ×2 (15:52→21:02)
[2025-01-28] MEDS: LIPITOR 10 MG PO (16:28)
[2025-01-28] MEDS: LOVENOX 40 MG SC (16:28)
[2025-01-28 16:59] LABS: Glucose - Point of Care 115 mg/dl (70-99)
[2025-01-28 19:40] VITALS: BP 117/52
[2025-01-28] MEDS: SENOKOT-S 1 TABLET PO (21:00)
[2025-01-28 21:20] LABS: Glucose - Point of Care 114 mg/dl (70-99)
[2025-01-28 23:55] VITALS: BP 113/51
[2025-01-29] VITALS (7 sets, daily range): BP systolic 116–136; BP diastolic 45–64; PULSE 62; O2SAT 94
[2025-01-29] MEDS: NORCO 5/325 1 TABLET PO ×3 (00:47→09:38)
[2025-01-29] MEDS: VANCOCIN 275 MG IV ×2 (05:52→18:02)
[2025-01-29 07:27] LABS: Hematocrit 26.5 % (37.0-47.0); Hemoglobin 8.8 g/dL (12.0-16.0); Mean Corp Hgb Conc. 33.2 g/dL (33.0-37.0); Mean Corpuscular Volume 78.6 fL (81.0-99.0); Platelet Count 183 10^3/uL (130-400); Red Cell Dist. Width 17.1 % (11.5-14.5)
[2025-01-29] MEDS: SENOKOT-S 1 TABLET PO ×2 (07:42→19:53)
[2025-01-29] MEDS: VISBIOME 1 CAP PO (07:42)
[2025-01-29] MEDS: VITAMIN D3 (cholecalciferol) 25 MCG PO (07:42)
[2025-01-29] MEDS: MIRALAX 17 GRAMS PO (07:42)
[2025-01-29] MEDS: FEOSOL 325 MG PO (07:42)
[2025-01-29] MEDS: TYLENOL PO (07:42)
[2025-01-29] MEDS: TOPROL XL 25 MG PO (07:42)
[2025-01-29] MEDS: DESENEX/MITRAZOL/ZEASORB 1 APPLIC TOPICAL ×2 (07:44→19:52)
[2025-01-29 07:49] LABS: Blood Urea Nitrogen 15 mg/dl (7-17); Calcium 8.1 mg/dl (8.4-10.2); Carbon Dioxide 17 mmol/L (22-30); Chloride 109 mmol/L (98-107); Estimated Creatinine Clearance 95 ml/min; Glucose 96 mg/dl (70-99); Potassium 3.6 mmol/L (3.5-5.1); Sodium 134 mmol/L (135-145); eGFR > 60.00
--- NOTE | 2025-01-29 08:49 | PHA.VAN.FU ---
Addendum entered and electronically signed by Lucia Montes De Oca RPH 01/29/25 14:04:
BUN & SCR ordered per protocol
Original Note:
Vancomycin Assessment / Plan
- Assessment
Renal Function: Stable
WBC's are: WNL
- Dosing Plan
Continue: Vanc 1250mg Q12H
- Monitoring Plan
Peak Level: 01/29 21:30
Trough Level: 01/30 05:30
Monitoring Comments: levels to be drawn after 6th maintenance dose
- Follow Up
Pharmacy will continue to follow.
Vancomycin Follow UP
- -
Patient Age: 74
Patient Sex: Female
Vancomycin Day #: 4
Indication: Skin And Soft Tissue
Requesting Provider: Kenji STRONG / Dr. Akins
Pertinent Antimicrobial Allergies:
no pertinent antibiotic allergies
Height / Weight:
Height 5 ft 7 in
Actual Weight 93.185 kg
Pertinent Past Medical History: BMI ~32, DM 2
- Vital Signs / Lab Results
Temp Pulse Resp BP Pulse Ox
98.3 F 60 18 116/49 95
01/29/25 07:00 01/29/25 07:00 01/29/25 07:00 01/29/25 07:00 01/29/25 07:00
Lab Results - Hematology
01/26/25 01/27/25 01/28/25
09:22 08:41 13:36
WBC 24.2 H 11.4 H 11.7 H
01/29/25
06:28
WBC 8.3
Lab Results - Chemistry
01/26/25 01/27/25 01/28/25
09:22 08:41 13:36
BUN 12 15 14
Creatinine 0.6 0.7 0.7
Estimated Creat Clear 96 81 81
Albumin 3.8
01/29/25
06:28
BUN 15
Creatinine 0.6
Estimated Creat Clear 95
Albumin
01/26/25 01/26/25
13:30
Lactic Acid 1.4 Cancelled
Microbiology Results
01/26/25 09:22 Blood Culture - Preliminary
Blood/Venous Staph aureus MRSA
Gram Stain - Final
01/27/25 11:15 Blood Culture - Preliminary
Blood/Venous No Growth in 24 hours- Final report to follow
01/26/25 09:22 Blood Culture - Preliminary
Blood/Venous Positive culture in progress
Gram Stain - Preliminary
01/26/25 13:50 Urine Culture - Final
Urine No Significant Growth
[2025-01-29 09:08] LABS: Glucose - Point of Care 102 mg/dl (70-99)
[2025-01-29] MEDS: NOVOLOG FLEXPEN-LOW RESISTANCE SC ×2 (09:26→12:43)
--- NOTE | 2025-01-29 11:33 | W.PN.UPDATE ---
Update Note
Progress Note Update
Patient seen in tandem with Dr. No. She reports she is much more comfortable now that the medication has been changed to Vicodin. Tolerating the knee immobilizer better. She denies any pain as long as she is immobile. The knee immobilizer
was opened up to reveal no skin breakdown and moderate effusion. Tenderness to palpation over the distal femur. Stressed the importance of continue with the knee immobilizer full-time, removing it only for skin checks and hygiene purposes. She
will remain nonweightbearing until further notice. We will have her follow-up in the office in 2 weeks for repeat x-rays to rule out fracture displacement. She will require rehab placement, so appreciate case management efforts in coordinating
this. Continue with left ankle wound care and workup per podiatry. Orthopedics to sign off for now.
--- NOTE | 2025-01-29 11:56 | CM ---
CM met with pt bedside
Pt resides alone in a 2SH with ramp entrance, stairglide to 2nd floor
Pt sleeps on 1st floor in recline and has powder room on 1st floor
Pt is independent with use of a SPC and WW
PCP- Leyla Burdick
Rx-[facility] [address]
Pt had hardware removal K. ankle at [facility] earlier in the year
Discharged to [facility]- admitted to SNF from April 2024- Dec 07 or 2024
Was discharged to home with [facility], closed to service last week
Pt with LLE cellulits and R femur fx
Plan for medical management of fx
Pt is B/L NWB with R knee immobilizer
SNF recs by therapy- PAC provided
Referrals sent to 1). [facility] and 2). [facility] per pt request
Referrals pending
Discharge Disposition- SNF
--- NOTE | 2025-01-29 12:18 | W.PN.HOSP.TC ---
Today's Communication/Plan
-
- Continue antibiotics
- Continue to follow cultures
- Await left ankle MRI results
Assessment / Plan
Assessment / Plan
#Left lower extremity cellulitis
#History of left ankle ORIF, with associated infection and hardware removal
- ID consulted and following
- Patient started on vancomycin and cefepime, DC'd cefepime due to blood culture result
- Blood culture X1 positive for Staph aureus, MRSA
- Blood culture X1 from 01/27 no growth
- Blood culture X1 from 1213 found
- WBC 24.2 on admission, WBC normalized
#Fall secondary to weakness
- Femur x-ray indicating slightly displaced femur fracture
- Consulted orthopedics for right femur
- Consulted podiatry for left ankle/foot as suggested by orthopedics
- Knee immobilizer for right femur
- Pain management as needed
- CT head negative, CT cervical spine negative
- Podiatry ordered left ankle MRI to assess osteomyelitis VS. Charcot foot, still pending
- Urine culture negative
#HLD
- Continue statin
#Type 2 diabetes
- Holding glyburide, metformin
- Sliding scale insulin
- Diabetic diet
#Hypertension
- Continue metoprolol
Diet: Diabetic diet
DVT PPx: Lovenox
CODE STATUS: Full code
Anticipated Discharge: 24 - 48 hours
Subjective/Interval History
-
Date of Service: January 29, 2025
Patient seen lying in bed this morning. Patient states she is feeling much better. Patient was still experiencing pain in the right leg although it is much better controlled today.
Objective Data
-
Labs:
Laboratory Results
01/29/25
06:28
WBC 8.3
Hgb 8.8 L
Hct 26.5 L
Plt Count 183
Sodium 134 L
Potassium 3.6
Chloride 109 H
Carbon Dioxide 17 L
BUN 15
Creatinine 0.6
Glucose 96
Calcium 8.1 L
Vital Signs:
Vital Signs
Temp Pulse Resp BP Pulse Ox
98.3 F 60 18 116/49 95
01/29/25 07:00 01/29/25 07:00 01/29/25 07:00 01/29/25 07:00 01/29/25 07:00
I&O
01/28/25 01/29/25 01/30/25
06:59 06:59 06:59
Intake Total 2650 / 2650 970 / 970
Output Total 300 / 300 900 / 900
Balance 2350 / 2350 70 / 70
Review of Systems
-
History Source: Patient
Constitutional: Reports No Symptoms
EENT: Reports No Symptoms Reported
Respiratory: Reports No Symptoms
Cardiac: Reports No Symptoms
Abdomen/GI: Reports No Symptoms
Genitourinary: Reports No Symptoms
Musculoskeletal: Reports Other (Right lower extremity pain, 7 out of 10)
Skin: Reports No Symptoms
Neuro: Reports No Symptoms
Endocrine: Reports No Symptoms
Hematologic / Lymphatic: Reports No Symptoms
Allergy / Immunology: Reports No Symptoms
Psych: Reports Sad
Physical Exam
-
General: Well Developed, Well Nourished, No Apparent Distress and Pain (right lower extremity)
HEENT: Normocephalic, Atraumatic and Moist Mucous Membranes
Respiratory: Clear to Auscultation
Cardiac: Regular Rhythm
GI: Soft, Nontender and Nondistended
Musculoskeletal: Other (Left ankle edematous, everton bandage in place)
Skin: Warm and Dry
Neuro: Awake, Alert and Oriented
Psych: Calm
[2025-01-29 12:31] LABS: Glucose - Point of Care 116 mg/dl (70-99)
--- NOTE | 2025-01-29 12:47 | W.PN.UPDATE ---
Update Note
Progress Note Update
Discussed case with resident
HPI: 74-year-old female with past medical history of left ankle ORIF last year complicated by infected hardware status post removal at [facility], hypertension, hyperlipidemia, type 2 diabetes, history of left thigh lesion s/p ultrasound
guided biopsy in 2019, p/w fever of 102, generalized weakness, and fall. No head injury.
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
A/P:
# sepsis POA with MRSA bacteremia, source likely Left lower extremity cellulitis/ L ankle OM
# History of left ankle ORIF with associated infection and hardware removal
L ankle XR showed very likely sequela of osteomyelitis, new since examination 2017.
Check MRI L Ankle
Admission blood cultures growing MRSA. Repeat blood culture from 01/27 appear to be negative
Continue with empiric vancomycin. Off cefepime per ID
Check empiric echo
ID on board
podiatry on board
# R knee slightly displaced fracture superior medial margin of the medial femoral condyle.
# Fall secondary to weakness
Cont stabilization with immobilizer
Pain control with Tylenol ATC, oxycodone PRN and Dilaudid PRN
Ortho on board, recc full-time immobilization in a knee immobilizer and nonweightbearing.
PT OT eval
# HLD
Continue statin
# Type 2 diabetes
Holding glyburide, metformin
Sliding scale insulin
Diabetic diet
# Hypertension
Continue metoprolol
Diet: Diabetic diet
DVT PPx: Lovenox SQ
CODE STATUS: Full code
[2025-01-29] MEDS: ROXICODONE 5 MG PO ×2 (13:46→19:52)
[2025-01-29] MEDS: TYLENOL 1000 MG PO ×2 (15:03→22:07)
[2025-01-29] MEDS: LIPITOR 10 MG PO (16:33)
[2025-01-29] MEDS: LOVENOX 40 MG SC (16:33)
[2025-01-29 17:35] LABS: Glucose - Point of Care 161 mg/dl (70-99)
[2025-01-29] MEDS: NOVOLOG FLEXPEN-LOW RESISTANCE 1 UNITS SC (18:02)
[2025-01-29 21:42] LABS: Glucose - Point of Care 173 mg/dl (70-99)
[2025-01-30] MEDS: ROXICODONE 5 MG PO ×4 (01:18→21:38)
[2025-01-30 06:19] LABS: Blood Urea Nitrogen 13 mg/dl (7-17); Calcium 8.3 mg/dl (8.4-10.2); Carbon Dioxide 23 mmol/L (22-30); Chloride 106 mmol/L (98-107); Estimated Creatinine Clearance 81 ml/min; Glucose 146 mg/dl (70-99); Potassium 4.0 mmol/L (3.5-5.1); Sodium 136 mmol/L (135-145); eGFR > 60.00
[2025-01-30] MEDS: VANCOCIN 275 MG IV ×2 (06:38→18:43)
[2025-01-30 07:01] LABS: Hematocrit 29.2 % (37.0-47.0); Hemoglobin 9.6 g/dL (12.0-16.0); Mean Corp Hgb Conc. 32.9 g/dL (33.0-37.0); Mean Corpuscular Volume 78.3 fL (81.0-99.0); Platelet Count 231 10^3/uL (130-400); Red Cell Dist. Width 16.9 % (11.5-14.5)
[2025-01-30 07:34] VITALS: BP 128/57
--- NOTE | 2025-01-30 08:18 | PHA.VAN.FU ---
Addendum entered and electronically signed by Jennifer Andersen Mitesh 01/30/25 15:21:
Scr & BUN ordered for 01/31 at 06:00 AM per protocol
Original Note:
Vancomycin Assessment / Plan
- Assessment
Renal Function: Stable
WBC's are: Stable
In the past 24 hrs, patient has been: Afebrile
- Assessment - Therapeutic Drug Monitoring
Extrapolated Cmax (mcg/mL): 30.5
Peak level was drawn: Appropriately
Extrapolated Cmin (mcg/mL): 18.9
Trough Drawn: Appropriately
Levels were drawn: At steady state
Calculated AUC (mcg*h/mL): 583
Calculated ke: 0.04
Calculated half life (H): 15.3
Calculated Vd (L): 94.2
Calculated Vanc CL (ml/min): 4.2
t 1/2 higher than projected, continue to monitor and adjust frequency as clinically appropriate
- Dosing Plan
Continue: Vancomycin 1250 mg IV q12h
- Monitoring Plan
No level(s) ordered at this time: Consider weekly level or earlier if renal function changes
- Follow Up
Pharmacy will continue to follow.
Vancomycin Follow UP
- -
Patient Age: 74
Patient Sex: Female
Vancomycin Day #: 5
Indication: Skin And Soft Tissue
Requesting Provider: Kenji STRONG / Dr. Akins
Pertinent Antimicrobial Allergies:
no pertinent antibiotic allergies
Height / Weight:
Height 5 ft 7 in
Actual Weight 93.185 kg
Pertinent Past Medical History: BMI ~32, DM 2
- Vital Signs / Lab Results
Temp Pulse Resp BP Pulse Ox
99.0 F 74 18 136/64 96
01/30/25 06:05 01/29/25 23:00 01/29/25 23:00 01/29/25 23:00 01/29/25 23:00
Lab Results - Hematology
01/27/25 01/28/25 01/29/25
08:41 13:36 06:28
WBC 11.4 H 11.7 H 8.3
01/30/25
05:43
WBC 9.5
Lab Results - Chemistry
01/27/25 01/28/25 01/29/25
08:41 13:36 06:28
BUN 15 14 15
Creatinine 0.7 0.7 0.6
Estimated Creat Clear 81 81 95
01/30/25
05:43
BUN 13
Creatinine 0.7
Estimated Creat Clear 81
Microbiology Results
01/27/25 11:15 Blood Culture - Preliminary
Blood/Venous Positive culture in progress
Gram Stain - Preliminary
01/28/25 13:36 Blood Culture - Preliminary
Blood/Venous No Growth in 24 hours- Final report to follow
01/26/25 09:22 Blood Culture - Final
Blood/Venous Staph aureus MRSA
Gram Stain - Final
01/26/25 09:22 Blood Culture - Final
Blood/Venous Staph aureus MRSA
Gram Stain - Final
Therapeutic Drug Monitoring
Vancomycin Peak 27.7 ug/ml (18-26) H 01/29/25 21:39
Vancomycin Trough 19.2 ug/ml (5-20) 01/30/25 05:43
[2025-01-30 08:27] LABS: Glucose - Point of Care 149 mg/dl (70-99)
--- NOTE | 2025-01-30 09:16 | W.PN.HOSP.TC ---
Addendum entered and electronically signed by Angel Mccullough MD 01/30/25 21:34:
Attending Addendum-
I saw and evaluated the patient. I reviewed the resident�s note and agree with findings and plan as documented in the resident�s note. Sub: called bu nursing re drainage of left ankle wound. patient complains of pain in b/l LE. denies fevers chills.
feels fatigues and weak. Full 12 point ROS reviewed and negative except as documented Exam: Vitals reviewed in chart GEN-NAD heart RRR no MRG lungs decreased BS @ bases ab dsoft LE left inner ankle wound open deep purulent drainage right knee in
immobilizer
# sepsis POA with MRSA bacteremia, source likely Left lower extremity cellulitis/?L ankle OM
# History of left ankle ORIF with associated infection and hardware removal
-L ankle XR showed very likely sequela of osteomyelitis, new since examination 2016.
-Check MRI L Ankle
-cont wound care
-blood cx pos for MRSA 01/26 x 2 now 01/27 pos!
-check echo r/o veg
-Continue vancomycin day # 4
-pods on board- input appreciated possible bone bx
-high suspicion left ankle OM
-ID on board
# R knee slightly displaced fracture superior medial margin of the medial femoral condyle.
# Fall secondary to weakness
-Cont stabilization with immobilizer, non surgical management
-Pain control with Tylenol ATC, oxycodone PRN and Dilaudid PRN
-Ortho on board, rec full-time immobilization in a knee immobilizer and nonweightbearing.
-PT OT eval
# HLD-cont atorva
# Type 2 diabetes-Holding glyburide, metformin, cont Sliding scale insulin, Diabetic diet, monitor accuchecks closely
# Hypertension-Continue metoprolol
Diet: Diabetic diet
DVT PPx: Lovenox SQ
CODE STATUS: Full code
ACP
Patient consented to discuss, was alone, time spent explanation of advance directives, changes in health status, patient�s health care wishes if the patient becomes unable to make health decisions, goals of care, code status, and prognosis, 'i want
to live'- 16 minutes
Time spent coordinating care, review of plan of care with resident, personally reviewed previous records in EMR, med rec, labs, radiology, d/w nursing, wound care, family total time documented is exclusive of any additional time listed that was
spent in advance care planning discussion -�51 minutes
Original Note:
Today's Communication/Plan
-
transthoracic echocardiogram done today to rule out infective endocarditis
Follow MRI order for left ankle to rule out osteomyelitis
continue IV vancomycin
biopsy of the deep wound to rule out osteomyelitis
PT/OT Evaluation for possible rehab placement evaluation, pt is living alone
Assessment / Plan
Assessment / Plan
Impression:
74-year-old female with past medical history of left ankle ORIF last year complicated by infected hardware status post removal at [facility], hypertension, hyperlipidemia, type 2 diabetes, history of left thigh lesion s/p ultrasound guided
biopsy in 2019, p/w fever of 102, generalized weakness, and fall. No head injury.
A week and a half ago [employer], she developed wound of left ankle with redness and swelling.
Assessment and plan:
#sepsis secondary to Left lower extremity cellulitis
#History of left ankle ORIF, with associated infection and hardware removal
- ID consulted and following
- Patient started on vancomycin and cefepime, DC'd cefepime due to blood culture result
- Blood culture X1 01/26 positive for Staph aureus, MRSA
-Blood culture X1 01/26 positive for Staph aureus, MRSA
- Blood culture X1 from 01/27 gram positive cocci in clusters
- Blood culture X1 from 01/28 no growth in 48 hours
- WBC 24.2 on admission, WBC normalized, vitals stable
-urine culture negative
-ID on board
-podiatry on board
echocardiogram ordered today 01/30:
1. Normal left ventricular size and systolic function without regional wall motion abnormalities. Estimated left ventricular ejection fraction is 56% by Agee's method.
2. Normal right ventricular size and systolic function.
3. Trace mitral regurgitation.
4. Mild tricuspid regurgitation with estimated pulmonary artery systolic pressure of 39 mmHg.
5. No pericardial effusion.
6. Compared to prior echocardiogram from 2017, estimated pulmonary artery systolic pressure is higher on the study. Otherwise there is no significant changes.
#Fall secondary to weakness
- Femur x-ray indicating slightly displaced femur fracture
- Consulted orthopedics for right femur
- Consulted podiatry for left ankle/foot as suggested by orthopedics
- Knee immobilizer for right femur
- Pain management as needed
- CT head negative, CT cervical spine negative
- Podiatry ordered left ankle MRI to assess osteomyelitis VS. Charcot foot, still pending
- Urine culture negative
#HLD
- Continue statin
#Type 2 diabetes
- Holding glyburide, metformin
- Sliding scale insulin
- Diabetic diet
#Hypertension
- Continue metoprolol
Diet: Diabetic diet
DVT PPx: Lovenox
CODE STATUS: Full code
Anticipated Discharge: > 48 hours
Subjective/Interval History
-
Date of Service: January 30, 2025
No overnight event. Her pain in right knee has been improving with pain medication. She still has pain when mobilize it but overall improving. She has no shortness of breath, chest pain , palpitation, fever or chills. She denies pain in her left
ankle.Her left ankle wound is opened and has purulent discharge.
Objective Data
-
Labs:
Laboratory Results
01/30/25
05:43
WBC 9.5
Hgb 9.6 L
Hct 29.2 L
Plt Count 231 D
Sodium 136
Potassium 4.0
Chloride 106
Carbon Dioxide 23
BUN 13
Creatinine 0.7
Glucose 146 H
Calcium 8.3 L
Vital Signs:
Vital Signs
Temp Pulse Resp BP Pulse Ox
99.2 F 66 16 128/57 95
01/30/25 07:34 01/30/25 07:34 01/30/25 07:34 01/30/25 07:34 01/30/25 07:34
I&O
01/29/25 01/30/25 01/31/25
06:59 06:59 06:59
Intake Total 970 / 970 480 / 480
Output Total 900 / 900 750 / 750
Balance 70 / 70 -270 / -270
Review of Systems
-
History Source: Patient
Constitutional: Reports No Symptoms
EENT: Reports No Symptoms Reported
Respiratory: Reports No Symptoms
Cardiac: Reports No Symptoms
Abdomen/GI: Reports No Symptoms
Genitourinary: Reports No Symptoms
Musculoskeletal: Reports Other (Right lower extremity pain, 7 out of 10)
Skin: Reports No Symptoms
Neuro: Reports No Symptoms
Endocrine: Reports No Symptoms
Hematologic / Lymphatic: Reports No Symptoms
Allergy / Immunology: Reports No Symptoms
Psych: Reports Sad
Physical Exam
-
General: Well Developed, Well Nourished, No Apparent Distress and Pain (right lower extremity improving since yesterday)
HEENT: Normocephalic, Atraumatic and Moist Mucous Membranes
Respiratory: Clear to Auscultation
Cardiac: Regular Rhythm
GI: Soft, Nontender and Nondistended
Musculoskeletal: Edema, Left Upper Extrem and Other (purulent discharge of the left ankle wound )
Skin: Warm and Dry
Neuro: Awake, Alert and Oriented
Psych: Calm
[2025-01-30] MEDS: VISBIOME 1 CAP PO (09:22)
[2025-01-30] MEDS: FEOSOL 325 MG PO (09:22)
[2025-01-30] MEDS: TYLENOL 1000 MG PO ×3 (09:22→22:44)
[2025-01-30] MEDS: TOPROL XL 25 MG PO (09:22)
[2025-01-30] MEDS: SENOKOT-S 1 TABLET PO ×2 (09:22→21:02)
[2025-01-30] MEDS: VITAMIN D3 (cholecalciferol) 25 MCG PO (09:23)
[2025-01-30] MEDS: DESENEX/MITRAZOL/ZEASORB 1 APPLIC TOPICAL ×2 (09:23→21:01)
[2025-01-30] MEDS: NOVOLOG FLEXPEN-LOW RESISTANCE SC ×3 (09:25→18:05)
[2025-01-30 12:08] LABS: Glucose - Point of Care 133 mg/dl (70-99)
--- NOTE | 2025-01-30 13:16 | CM ---
Reviewed Chart. Pt is on IV ABX. Jef Mcintosh and Nesh. Ngo both pending reviews for acceptance, Pt updated
Plan: DX to SNF when pt is stable
--- NOTE | 2025-01-30 13:46 | WOUNDNOTE ---
LEFT LATERAL ANKLE WOUND
--- NOTE | 2025-01-30 13:46 | WOUNDNOTE ---
LEFT LATERAL ANKLE WOUND 1950, [id number]
--- NOTE | 2025-01-30 13:49 | WOUNDNOTE ---
[facility] RN NOTE: Patient visited for new open wound of left lateral ankle. RN Ericka reported that the wound opened this morning with large amounts of purulent drainage. Upon assessment wound is 2.3x2x.2 with 2 cm of undermining at 2 oclock. TT pictures
to Dr. Kimball and Hospitalist. Plan is clean with Dakins and pack with mesalt packing BID. Dr. Kimball to see patient today. RN's Ericka and Mckenna given update and will complete wound care when Dakins arrives. Patient givien update. Will follow
peripherally.
[2025-01-30] MEDS: DAKIN'S SOLUTION 0.125% 1/4 STRENGTH 10 ML TOPICAL (14:57)
[2025-01-30 15:00] VITALS: BP 127/59
[2025-01-30 16:25] VITALS: BP 147/66; PULSE 73; O2SAT 91
[2025-01-30 16:26] VITALS: BP 147/66; PULSE 72; O2SAT 91
[2025-01-30 17:38] LABS: Glucose - Point of Care 131 mg/dl (70-99)
[2025-01-30] MEDS: LIPITOR 10 MG PO (18:06)
[2025-01-30] MEDS: LOVENOX 40 MG SC (18:06)
[2025-01-30 21:01] LABS: Glucose - Point of Care 124 mg/dl (70-99)
[2025-01-30] MEDS: DAKIN'S SOLUTION 0.125% 1/4 STRENGTH TOPICAL (21:23)
--- NOTE | 2025-01-30 21:54 | W.PN.UPDATE ---
Update Note
Progress Note Update
74F Left ankle wound that probes to bone with concern for underlying OM
- Patient is amenable to MRI left ankle MRI
-- discussed with patient limb salvage (reconstruction vs proximal amputation) pending MRI results
-continue abx per ID
- [facility] rendered : dakins wet to dry
- will continue to monitor
[2025-01-30 23:54] VITALS: BP 146/59
[2025-01-31] MEDS: ROXICODONE 5 MG PO ×4 (03:50→20:38)
[2025-01-31] MEDS: VANCOCIN 275 MG IV (05:40)
[2025-01-31 07:31] LABS: Glucose - Point of Care 148 mg/dl (70-99)
[2025-01-31 07:38] LABS: ALT (SGPT) 20 U/L (0-35); AST (SGOT) 17 U/L (14-36); Albumin 2.7 g/dl (3.5-5.0); Alkaline Phosphatase 81 U/L (38-126); Blood Urea Nitrogen 13 mg/dl (7-17); Calcium 8.2 mg/dl (8.4-10.2); Carbon Dioxide 24 mmol/L (22-30); Chloride 106 mmol/L (98-107); Estimated Creatinine Clearance 81 ml/min; Glucose 137 mg/dl (70-99); Potassium 3.5 mmol/L (3.5-5.1); Sodium 137 mmol/L (135-145); Total Protein 5.3 g/dl (6.3-8.2); eGFR > 60.00
[2025-01-31 07:58] LABS: C-Reactive Protein 200.00 mg/L (0.0-10.00)
[2025-01-31 08:00] LABS: Hematocrit 29.5 % (37.0-47.0); Hemoglobin 9.5 g/dL (12.0-16.0); Mean Corp Hgb Conc. 32.2 g/dL (33.0-37.0); Mean Corpuscular Volume 78.0 fL (81.0-99.0); Nucleated Red Blood Cells % 0.2 %; Platelet Count 305 10^3/uL (130-400); Red Cell Dist. Width 17.0 % (11.5-14.5)
[2025-01-31] MEDS: NOVOLOG FLEXPEN-LOW RESISTANCE SC ×2 (08:00→17:10)
--- NOTE | 2025-01-31 08:51 | PHA.VAN.FU ---
Vancomycin Assessment / Plan
- Assessment
Renal Function: Stable
WBC's are: WNL
- Dosing Plan
Adjust Regimen to: Vanc 1250mg Q24H
Dosing Comments: expect patient to have further accumulation with prolonged half-life
- Monitoring Plan
No level(s) ordered at this time: consider repeat levels in next few days
- Follow Up
Pharmacy will continue to follow.
Vancomycin Follow UP
- -
Patient Age: 74
Patient Sex: Female
Vancomycin Day #: 6
Indication: Skin And Soft Tissue
Requesting Provider: Kenji STRONG / Dr. Akins
Pertinent Antimicrobial Allergies:
no pertinent antibiotic allergies
Height / Weight:
Height 5 ft 7 in
Actual Weight 93.185 kg
Pertinent Past Medical History: BMI ~32, DM 2
- Vital Signs / Lab Results
Temp Pulse Resp BP Pulse Ox
99.4 F 69 17 146/59 92
01/30/25 23:54 01/30/25 23:54 01/30/25 23:54 01/30/25 23:54 01/30/25 23:54
Lab Results - Hematology
01/28/25 01/29/25 01/30/25
13:36 06:28 05:43
WBC 11.7 H 8.3 9.5
01/31/25
06:26
WBC 10.0
Lab Results - Chemistry
01/28/25 01/29/25 01/30/25
13:36 06:28 05:43
BUN 14 15 13
Creatinine 0.7 0.6 0.7
Estimated Creat Clear 81 95 81
Albumin
01/31/25
06:27
BUN 13
Creatinine 0.7
Estimated Creat Clear 81
Albumin 2.7 L
Microbiology Results
01/28/25 13:36 Blood Culture - Preliminary
Blood/Venous No Growth in 48 hours- Final report to follow
01/27/25 11:15 Blood Culture - Preliminary
Blood/Venous Positive culture in progress
Gram Stain - Preliminary
01/26/25 09:22 Blood Culture - Final
Blood/Venous Staph aureus MRSA
Gram Stain - Final
01/26/25 09:22 Blood Culture - Final
Blood/Venous Staph aureus MRSA
Gram Stain - Final
Therapeutic Drug Monitoring
Vancomycin Peak 27.7 ug/ml (18-26) H 01/29/25 21:39
Vancomycin Trough 19.2 ug/ml (5-20) 01/30/25 05:43
[2025-01-31 08:57] VITALS: BP 156/64
[2025-01-31] MEDS: TOPROL XL 25 MG PO (09:10)
[2025-01-31] MEDS: VITAMIN D3 (cholecalciferol) 25 MCG PO (09:10)
[2025-01-31] MEDS: TYLENOL 1000 MG PO ×3 (09:10→22:32)
[2025-01-31] MEDS: FEOSOL 325 MG PO (09:10)
[2025-01-31] MEDS: SENOKOT-S 1 TABLET PO ×2 (09:10→20:22)
[2025-01-31] MEDS: DAKIN'S SOLUTION 0.125% 1/4 STRENGTH 10 ML TOPICAL (09:22)
[2025-01-31] MEDS: DESENEX/MITRAZOL/ZEASORB 1 APPLIC TOPICAL ×2 (09:23→20:23)
[2025-01-31] MEDS: VISBIOME 1 CAP PO (10:33)
[2025-01-31 12:48] LABS: Glucose - Point of Care 178 mg/dl (70-99)
[2025-01-31] MEDS: NOVOLOG FLEXPEN-LOW RESISTANCE 1 UNITS SC (13:09)
--- NOTE | 2025-01-31 14:57 | W.PN.ID1 ---
Date of Service
Date of Service: January 31, 2025
Today's Communication
Continue antibiotics.
Assessment / Plan
Leukocytosis
Fever
Left lower extremity cellulitis
Right knee pain/swelling
MRSA bacteremia
S/p fall
Right knee displaced fracture (medial femoral condyle)
HLD
DM
Bilateral cataracts
Hx left ankle osteomyelitis
Recommendations:
Transition antibiotics to daptomycin to avoid potential vancomycin-induced nephrotoxicity.
Follow blood cultures to assess clearance of bacteremia.
Trend white count and temperature curve.
Await further input from Podiatry
����������������������������������������������������������
Chief Complaint
-: Clinical Sepsis and Bacteremia
Subjective / Review of Systems
Review of Systems: No Fever and No Chills
Vital Signs / Physical Exam
Vital Signs
Vital Signs
Temp Pulse Resp BP Pulse Ox
98.1 F 68 18 156/64 94
01/31/25 08:57 01/31/25 09:10 01/31/25 08:57 01/31/25 09:10 01/31/25 09:00
Physical Exam
Constitutional: No Acute Distress, Comfortable and Non-toxic
Eyes: No Conjunctival Hemorrhage and Sclera Anicteric
Cardiovascular: Regular Rate, S1/S2 and Murmur; Negative S3/S4
Pulmonary: Clear; Negative Wheezes or Rales
Gastrointestinal: Soft and Non Tender
Extremities: Edema (Bilateral lower extremity) and Erythema (Left ankle area)
Musculoskeletal: Joint Swelling (Right knee)
Neurological: Awake and Alert
Psychological: Calm
Objective Data
Lab Data
Lab Results
01/31/25 06:26
01/31/25 06:27
ESR 99 mm/hour (0-20) H 01/31/25 06:26
Estimated Creat Clear 81 ml/min 01/31/25 06:27
Lactic Acid Cancelled 01/26/25 13:30
Total Bilirubin 0.5 mg/dl (0.2-1.3) 01/31/25 06:27
AST 17 U/L (14-36) 01/31/25 06:27
ALT 20 U/L (0-35) 01/31/25 06:27
Alkaline Phosphatase 81 U/L (38-126) 01/31/25 06:27
C-Reactive Protein 200.00 mg/L (0.0-10.00) H 01/31/25 06:27
Most recent labs reviewed.
Micro Results:
01/28/25 13:36 Blood Culture - Preliminary
Blood/Venous No Growth in 72 hours- Final report to follow
01/27/25 11:15 Blood Culture - Preliminary
Blood/Venous Staph aureus MRSA
Gram Stain - Preliminary
01/26/25 09:22 Blood Culture - Final
Blood/Venous Staph aureus MRSA
Gram Stain - Final
01/26/25 09:22 Blood Culture - Final
Blood/Venous Staph aureus MRSA
Gram Stain - Final
01/26/25 13:50 Urine Culture - Final
Urine No Significant Growth
01/26/25 09:22 Influenza Types A & B (MAUREEN) - Final
Nasal Swab Negative for Influenza A & B, NAAT
Negative results must be combined with clinical observations
and patient history.
Nucleic Acid Amplification test (NAAT)performed on the
[employer] platform.
Imaging:
01/31/2025 MRI left ankle: severe osseous destructive changes and bone marrow signal alteration in the hindfoot. Primary consideration would include sequela of osteomyelitis versus very severe Charcot arthrosis. Please see full dictation for
additional detail.
01/30/2025 ECHO (TTE): normal ventricular size and systolic function. Trace mitral regurgitation. Mild tricuspid regurgitation. No pericardial effusion. No noted vegetations.
01/26/2025 x-ray left ankle: Bony destruction of the talar dome, sparing the distal talus. Findings very likely represents sequela of osteomyelitis, new since examination 2017. There is some bony loss involving the distal tibia and fibula, which is
also likely from osteomyelitis. Periosteal new bone formation involving the distal tibia and fibula, likely findings of chronic osteomyelitis.
--- NOTE | 2025-01-31 16:22 | CM ---
Reviewed chart. Remains on IV ABX and with fever. sent updated clinical to [facility] Ngo. Still waiting for SNF dates from Ethan Ngo
Plan: DC to SNF when stable
[2025-01-31 17:04] LABS: Glucose - Point of Care 142 mg/dl (70-99)
[2025-01-31 17:18] VITALS: BP 137/54
[2025-01-31] MEDS: CUBICIN 18 MG IV (17:52)
[2025-01-31] MEDS: LOVENOX 40 MG SC (18:17)
--- NOTE | 2025-01-31 19:13 | W.PN.HOSP.TC ---
Addendum entered and electronically signed by Angel Mccullough MD 01/31/25 21:53:
Attending Addendum-
I saw and evaluated the patient. I reviewed the resident�s note and agree with findings and plan as documented in the resident�s note. Sub: less drainage of left ankle wound. pain in b/l LE improved. had fever in last 24 hours. Full 12 point ROS
reviewed and negative except as documented Exam: Vitals reviewed in chart GEN-NAD heart RRR no MRG lungs decreased BS @ bases abd soft LELLE bandaged, right knee in immobilizer
# Sepsis POA with MRSA bacteremia, source Lt ankle OM
# History of left ankle ORIF with associated infection and hardware removal
-MRI L Ankle 01/31-
Severe osseous destructive changes and bone marrow signal alteration in the hindfoot, as described above. Primary considerations would include the sequela of osteomyelitis versus a very severe Charcot arthrosis, which are difficult to definitively
differentiate by imaging.
Unstable osteochondral lesion of the talar head.
Large soft tissue wound of the lateral ankle extending close to the lateral cortex of the distal fibula
-cont wound care
-blood cx pos for MRSA 01/26 x 2 and 01/27
-blood cx- 01/28-NGTD, 01/31-P
-echo 01/30-Normal left ventricular size and systolic function without regional wall motion abnormalities. Estimated left ventricular ejection fraction is 56%
-transition to daptomycin 01/31 from vanco (4 days)
-pods on board- will likely need OR
-ID on board
# R knee slightly displaced fracture superior medial margin of the medial femoral condyle.
# Fall secondary to weakness
-Cont stabilization with immobilizer, non surgical management
-Pain control with Tylenol ATC, oxycodone PRN and Dilaudid PRN
-Ortho on board, rec full-time immobilization in a knee immobilizer and nonweightbearing.
-PT OT eval
# HLD-cont atorva
# Type 2 diabetes-Holding glyburide, metformin, cont Sliding scale insulin, Diabetic diet, monitor accuchecks closely
# Hypertension-Continue metoprolol
Diet: Diabetic diet
DVT PPx: Lovenox SQ
CODE STATUS: Full code
Dispo Eventual DC to SNF
Time spent coordinating care, review of plan of care with resident, personally reviewed records in EMR, med rec, consults, notes, labs, radiology, d/w nursing ID � 53 mins
Original Note:
Today's Communication/Plan
-
continue Iv VANCOMYCIN
Blood culture ordered today
PT/OT evaluated her and skilled nurse rehab recommended
patient case manager contacted [facility]. [facility]
DC to SNF when stable
Assessment / Plan
Assessment / Plan
Impression:
74-year-old female with past medical history of left ankle ORIF last year complicated by infected hardware status post removal at [facility], hypertension, hyperlipidemia, type 2 diabetes, history of left thigh lesion s/p ultrasound guided
biopsy in 2019, p/w fever of 102, generalized weakness, and fall. No head injury.
A week and a half ago [employer], she developed wound of left ankle with redness and swelling.
Assessment and plan:
#sepsis secondary to Left lower extremity cellulitis
#History of left ankle ORIF, with associated infection and hardware removal
- ID consulted and following
- Patient started on vancomycin and cefepime, DC'd cefepime due to blood culture result
- Blood culture X1 01/26 positive for Staph aureus, MRSA
-Blood culture X1 01/26 positive for Staph aureus, MRSA
- Blood culture X1 from 01/27 gram positive cocci in clusters
- Blood culture X1 from 01/28 no growth in 48 hours
- WBC 24.2 on admission, WBC normalized, vitals stable except for one episode of 100.5 fever last night, improved
-urine culture negative
-ID on board
-podiatry on board
-blood culture ordered today
echocardiogram ordered today 01/30:
1. Normal left ventricular size and systolic function without regional wall motion abnormalities. Estimated left ventricular ejection fraction is 56% by Agee's method.
2. Normal right ventricular size and systolic function.
3. Trace mitral regurgitation.
4. Mild tricuspid regurgitation with estimated pulmonary artery systolic pressure of 39 mmHg.
5. No pericardial effusion.
6. Compared to prior echocardiogram from 2017, estimated pulmonary artery systolic pressure is higher on the study. Otherwise there is no significant changes.
#Fall secondary to weakness
- Femur x-ray indicating slightly displaced femur fracture
- Consulted orthopedics for right femur
- Consulted podiatry for left ankle/foot as suggested by orthopedics
- Knee immobilizer for right femur
- Pain management as needed
- CT head negative, CT cervical spine negative
- Podiatry ordered left ankle MRI to assess osteomyelitis VS. Charcot foot, still pending
- Urine culture negative
#HLD
- Continue statin
#Type 2 diabetes
- Holding glyburide, metformin
- Sliding scale insulin
- Diabetic diet
#Hypertension
- Continue metoprolol
Diet: Diabetic diet
DVT PPx: Lovenox
CODE STATUS: Full code
Anticipated Discharge: > 48 hours
Subjective/Interval History
-
Date of Service: January 31, 2025
pt had a fever last night 100.5 improved after Tylenol med. remained afebrile. Her left ankle pain improved with pain medication. She has no other symptoms.
Objective Data
-
Labs:
Laboratory Results
01/31/25 01/31/25
06:26 06:27
WBC 10.0
Hgb 9.5 L
Hct 29.5 L
Plt Count 305 D
Sodium 137
Potassium 3.5
Chloride 106
Carbon Dioxide 24
BUN 13
Creatinine 0.7
Glucose 137 H
Calcium 8.2 L
Total Bilirubin 0.5
AST 17
ALT 20
Alkaline Phosphatase 81
Vital Signs:
Vital Signs
Temp Pulse Resp BP Pulse Ox
98.4 F 64 16 137/54 91
01/31/25 17:18 01/31/25 17:18 01/31/25 17:18 01/31/25 17:18 01/31/25 17:18
I&O
01/30/25 01/31/25 02/01/25
06:59 06:59 06:59
Intake Total 480 / 480 920 / 920
Output Total 750 / 750 900 / 900
Balance -270 / -270
Review of Systems
-
History Source: Patient
Constitutional: Reports No Symptoms
EENT: Reports No Symptoms Reported
Respiratory: Reports No Symptoms
Cardiac: Reports No Symptoms
Abdomen/GI: Reports No Symptoms
Genitourinary: Reports No Symptoms
Musculoskeletal: Reports Other (Right lower extremity pain, 7 out of 10)
Skin: Reports No Symptoms
Neuro: Reports No Symptoms
Endocrine: Reports No Symptoms
Hematologic / Lymphatic: Reports No Symptoms
Allergy / Immunology: Reports No Symptoms
Psych: Reports Sad
Physical Exam
-
General: Well Developed, Well Nourished, No Apparent Distress and Pain (right lower extremity improving since yesterday)
HEENT: Normocephalic, Atraumatic and Moist Mucous Membranes
Respiratory: Clear to Auscultation
Cardiac: Regular Rhythm
GI: Soft, Nontender and Nondistended
Musculoskeletal: Edema, Left Upper Extrem and Other (deep wound stage 4 on her left ankle)
Skin: Warm and Dry
Neuro: Awake, Alert and Oriented
Psych: Calm
[2025-01-31] MEDS: DAKIN'S SOLUTION 0.125% 1/4 STRENGTH 473 ML TOPICAL (20:24)
[2025-01-31] MEDS: MIRALAX 17 GRAMS PO (20:26)
[2025-01-31 22:10] LABS: Glucose - Point of Care 157 mg/dl (70-99)
[2025-01-31 23:55] VITALS: BP 149/69
[2025-02-01 08:00] VITALS: BP 162/67
[2025-02-01 08:09] LABS: Hematocrit 29.3 % (37.0-47.0); Hemoglobin 9.5 g/dL (12.0-16.0); Mean Corp Hgb Conc. 32.4 g/dL (33.0-37.0); Mean Corpuscular Volume 77.5 fL (81.0-99.0); Platelet Count 369 10^3/uL (130-400); Red Cell Dist. Width 17.1 % (11.5-14.5)
[2025-02-01] MEDS: TOPROL XL 25 MG PO (08:10)
[2025-02-01] MEDS: VITAMIN D3 (cholecalciferol) 25 MCG PO (08:10)
[2025-02-01] MEDS: TYLENOL 1000 MG PO ×3 (08:10→21:59)
[2025-02-01] MEDS: SENOKOT-S 1 TABLET PO ×2 (08:10→20:20)
[2025-02-01] MEDS: MIRALAX 17 GRAMS PO (08:10)
[2025-02-01] MEDS: FEOSOL 325 MG PO (08:10)
[2025-02-01 08:11] LABS: Glucose - Point of Care 165 mg/dl (70-99)
[2025-02-01] MEDS: VISBIOME 1 CAP PO (08:11)
[2025-02-01] MEDS: NOVOLOG FLEXPEN-LOW RESISTANCE 1 UNITS SC (08:11)
[2025-02-01] MEDS: DESENEX/MITRAZOL/ZEASORB 1 APPLIC TOPICAL ×2 (08:12→20:20)
[2025-02-01 08:25] LABS: ALT (SGPT) 19 U/L (0-35); AST (SGOT) 19 U/L (14-36); Albumin 2.7 g/dl (3.5-5.0); Alkaline Phosphatase 83 U/L (38-126); Blood Urea Nitrogen 12 mg/dl (7-17); Calcium 7.9 mg/dl (8.4-10.2); Carbon Dioxide 23 mmol/L (22-30); Chloride 107 mmol/L (98-107); Estimated Creatinine Clearance 95 ml/min; Glucose 155 mg/dl (70-99); Potassium 3.4 mmol/L (3.5-5.1); Sodium 138 mmol/L (135-145); Total Protein 5.3 g/dl (6.3-8.2); eGFR > 60.00
[2025-02-01 09:15] LABS: Nucleated Red Blood Cells % 0.3 %
--- NOTE | 2025-02-01 09:15 | PN.CDI ---
CDI
- -
CDI:
Physician Documentation Request
Admit Date: 01/26/25 14:[address] Chen,
Sepsis without organ dysfunction is no longer used within our health system. These cases are now coded as the primary infection, not as sepsis.
[facility] is using an adapted version of the 2016 Third International Consensus Definitions for Sepsis and Septic Shock (Sepsis-3) where sepsis is defined as life threatening organ dysfunction caused by a deregulated host response to infection.
Please reference the official [facility] Sepsis Recognition Tool for further information, which is available on the Intranet under Infection Prevention.
Clinical Indicators Include:
Progress Notes state 'Sepsis POA with MRSA bacteremia, source Lt ankle OM '
Labs:
WBC: 24.2 01/26
Lactate: 1.4 01/26
Creatinine: 0.6-0.7
Platelets: 243 01/26
Bilirubin: 0.9 01/26
Based on your medical judgment, please review the documentation pertaining to Sepsis due to (Enter infection) and further clarify the clinical indicators and any organ dysfunction associated with the diagnosis, if applicable:
� Sepsis ruled out,left ankle OM only
� Sepsis due to left ankle OM with organ dysfunction of
� Other
� Clinically Unable to Determine
Use of terms such as suspected, likely, concern for, or probable (associated with a specific diagnosis that is being evaluated, monitored, or treated as if it exists) are acceptable and can be coded in the inpatient setting when documented at the
time of discharge.
Please use your independent medical judgement in providing your response.
Thank you,
Tammy Bauer RN, BSN
CDI Specialist
tiger text
--- NOTE | 2025-02-01 09:17 | WOUNDNOTE ---
[facility] RN note: Nurse Dhruv reported awake overnight monitor reporting red irritated skin around patient's L lateral ankle wound questioning of it's the Dakin's solution causing irritation. Ripley texted information to Dr. Costa including perhaps zinc oxide is
needed around the wound. Dr. Costa responded he is planning to see patient around noon today. Updated RN Dhruv.
[2025-02-01] MEDS: KCL 40 MEQ PO (09:46)
[2025-02-01] MEDS: ROXICODONE 5 MG PO (09:50)
[2025-02-01 12:55] LABS: Glucose - Point of Care 145 mg/dl (70-99)
[2025-02-01] MEDS: NOVOLOG FLEXPEN-LOW RESISTANCE SC ×2 (13:11→17:26)
[2025-02-01] MEDS: DAKIN'S SOLUTION 0.125% 1/4 STRENGTH 473 ML TOPICAL (14:03)
--- NOTE | 2025-02-01 14:15 | W.PN.UPDATE ---
Update Note
Progress Note Update
74F Left ankle wound that probes to bone with underlying OM
- Discussed MRI with patient revelaing OM of ankle and hindfoot. Discussed limb preservative procedures as well as proximal amputation. At this time patient wishes to pursue LLE proximal amputation
- continue abx per ID
- LWC rendered today
- Discussed with Vascular and Hospitalist
- will continue monitor
[2025-02-01 14:47] VITALS: BP 138/66
--- NOTE | 2025-02-01 14:52 | CON.VAS ---
Consultation
Consultation Request
Date/Time Consultation Performed: 02/01/25 @ 2:30pm
Performing Provider: Toy
Reason for Consultation: Amputation
Medical History
-
Chief Complaint: Left ankle wound
History of Present Illness:
74 yo female with PMH significant for HLD, type 2 DM, anemia, HTN, presented to the ER on 01/26/25 with fever and recent falls. Pt states she had left ankle fracture with ORIF in april 2024. Shortly after hardware became infect and was removed. She
resided at [facility] from that time to November 2024 when she returned home in a left foot boot. Pt states the boot rubbed at the lateral ankle but had never had an open wound. Last the patient fell at home prompting her ER visit. She
states the ankle wound was not open at that time but opened at some point during the admission and drained. Denies any prior wound issues with the left ankle.
MRI suggests osteomyelitis at the left ankle. Podiatry recommended amputation. Vascular consult for amputation.
Past Medical History
Past Medical History: Other (Hypertension, Hypercholesterolemia, type 2 diabetes, bilateral cataract)
Past Surgical History: Other (Total right hip replacement, Left hip replacement, knee replacement, tonsillectomy, Mohs surgery, left ankle ORIF, left ankle hardware removal)
Social History
Tobacco: Non-Smoker
Alcohol: None
Drug: None
Family History
Family History: Reviewed & Not Pertinent
Allergies / Home Medications
Allergy/AdvReac Type Severity Reaction Status Date / Time
adhesive tape Allergy SKIN Verified 01/26/25 16:17
BLISTERS
�Medication �Instructions �Recorded �Confirmed �Type
glyburide 2.5 mg-metformin 500 mg 2 tab PO BID 05/24/08 01/26/25 History
tablet
atorvastatin 10 mg tablet 10 mg PO QPM 07/31/16 01/26/25 History
Lactobac no.2-Bifidobac no.1-S. 1 cap PO DAILY 01/26/25 01/26/25 History
thermo 112.5 billion cell capsule
(Visbiome)
acetaminophen 325 mg tablet 650 mg PO Q4H PRN MILD PAIN 01/26/25 01/26/25 History
(Tylenol)
cholecalciferol (vitamin D3) 25 25 mcg PO DAILY 01/26/25 01/26/25 History
mcg (1,000 unit) tablet (Vitamin
D3)
cranberry fruit 450 mg tablet 450 mg PO DAILY 01/26/25 01/26/25 History
(cranberry)
ferrous sulfate 325 mg (65 mg 325 mg PO DAILY 01/26/25 01/26/25 History
iron) tablet
metoprolol succinate 25 mg 25 mg PO DAILY 01/26/25 01/26/25 History
tablet,extended release 24 hr
Review of Systems
-
History Source: Patient
All other systems: Negative unless noted
Constitutional: Reports Fever
EENT: Reports No Symptoms
Respiratory: Reports No Symptoms
Cardiac: Reports No Symptoms
Vascular: Denies Leg Pain / Claudication
Abdomen/GI: Reports No Symptoms
: Reports No Symptoms
Musculoskeletal: Reports Joint Pain
Skin: Reports Other (open wound left later ankle)
Physical Exam
Vital Signs
Temp Pulse Resp BP Pulse Ox
98.1 F 72 16 138/66 92
02/01/25 14:47 02/01/25 14:47 02/01/25 14:47 02/01/25 14:47 02/01/25 14:47
Lab Results
02/01/25 06:38
02/01/25 06:38
Physical Exam
General: No Apparent Distress
HEENT: Normocephalic and Atraumatic
Respiratory: Non Labored Respirations
Cardiac: Negative JVD
GI: Soft
Musculoskeletal: No Clubbing and No Cyanosis
Skin: Warm and Other (see wound care notes for images)
Neuro: Awake, Alert and Oriented
Psych: Calm
Pulses: Bilateral Femoral: +2 and Bilateral Popliteal: +2
Assessment / Plan
-
Plan:
Left tib/fib xray and left femur xray to r/o hardware
Planning for amputation thursday
Data Reviewed
-
Labs: Labs Reviewed by me
--- NOTE | 2025-02-01 15:02 | W.PN.UPDATE ---
Update Note
Progress Note Update
Seen and examined with MACHINE [employer]ER's. Full consultation to follow. Seen at the request of Dr. Sky Costa for discussion regarding proximal amputation. Patient is a 74-year-old female with history of type 2 diabetes. History of left ankle status
post ORIF couple years ago. Subsequently this past year developed infected hardware (March of this year). The hardware was removed. Had been doing okay and gone to rehab. Subsequently was at home. He suffered a fall and right femur fracture.
Following that she noted left ankle wound and drainage lateral part of the ankle. Has been evaluated by infectious disease and orthopedic foot/ankle surgery. They had a discussion regarding attempted limb salvage (complicated route with no
guarantee) and after their discussion with the patient, the patient elected for proximal amputation. Therefore we were consulted. Patient has no prior history of vascular disorders or arterial procedures. She has had peripheral arterial lower
extremity testing in the past.
On exam/she is awake alert. Breathing is unlabored. She is in no acute distress. Abdomen is soft, nondistended, nontender. Lower extremity with 2+ femoral and popliteal pulses palpable bilaterally. Right side with 2+ palpable pedal pulses.
Left side foot is wrapped.
Plan/ I discussed with the patient that in this case as it is not a primary vascular driven issue (bone infection) that I would defer to the orthopedic and infectious disease teams regarding salvageability of the limb. However given their
determination and discussion of the patient, I was asked to assist with performing amputation approximately. I discussed the procedure of below the knee amputation versus [id number] amputation. Discussed risk/benefits of both modalities.
Discussed advantage of below the knee and that the knee joint is preserved rendering the work of walking to be easier with a prosthetic. Discussed anticipated outcome/recovery. Discussed risks including but not limited to bleeding, infections,
anesthetic related complications, nonhealing wound requiring proximal revision, pressure ulcerations on the stump. She understands all these things and wishes to proceed. She wishes to discuss with her family further though and wait a couple days.
I discussed that we could perform the procedure tomorrow. Otherwise we would next be available to perform based on schedule on 02/06/2025. She prefer to wait till Thursday. Therefore we will add her onto the schedule for left below the
knee amputation for 02/06/2025. In the meanwhile would obtain x-rays (femur and tib-fib) to ensure no prosthetic/hardware that would obviate bony transection required for amputation.
[2025-02-01] MEDS: CUBICIN 18 MG IV (16:41)
--- NOTE | 2025-02-01 16:41 | W.PN.ID1 ---
Date of Service
Date of Service: February 01, 2025
Today's Communication
Continue antibiotics.
Assessment / Plan
MRSA bacteremia
Leukocytosis
Fever
Left lower extremity cellulitis
Right knee pain/swelling
S/p fall
Right knee displaced fracture (medial femoral condyle)
HLD
DM
Bilateral cataracts
Hx left ankle osteomyelitis
Recommendations:
Continue daptomycin.
Follow blood cultures to assess clearance of bacteremia.
Trend white count and temperature curve.
Chart reviewed. Patient in discussions with Orthopedics and Vascular Surgery.
Likely BKA Thursday.
����������������������������������������������������������
Chief Complaint
-: Clinical Sepsis and Bacteremia
Subjective / Review of Systems
Review of Systems: No Fever and No Chills
Vital Signs / Physical Exam
Vital Signs
Vital Signs
Temp Pulse Resp BP Pulse Ox
98.1 F 72 16 138/66 92
02/01/25 14:47 02/01/25 14:47 02/01/25 14:47 02/01/25 14:47 02/01/25 14:47
Physical Exam
Constitutional: No Acute Distress, Comfortable, Chronically Ill and Non-toxic
Eyes: No Conjunctival Hemorrhage and Sclera Anicteric
Cardiovascular: Regular Rate, S1/S2 and Murmur; Negative S3/S4
Pulmonary: Clear; Negative Wheezes or Rales
Gastrointestinal: Soft and Non Tender
Extremities: Edema (Bilateral lower extremity) and Erythema (Left ankle area)
Musculoskeletal: Joint Swelling (Right knee)
Wound: Other (Left lateral ankle wound dressed. Packing in place. Mild periwound erythema. No significant drainage)
Neurological: Awake and Alert
Psychological: Calm
Objective Data
Lab Data
Lab Results
02/01/25 06:38
02/01/25 06:38
ESR 99 mm/hour (0-20) H 01/31/25 06:26
Estimated Creat Clear 95 ml/min 02/01/25 06:38
Lactic Acid Cancelled 01/26/25 13:30
Total Bilirubin 0.5 mg/dl (0.2-1.3) 02/01/25 06:38
AST 19 U/L (14-36) 02/01/25 06:38
ALT 19 U/L (0-35) 02/01/25 06:38
Alkaline Phosphatase 83 U/L (38-126) 02/01/25 06:38
C-Reactive Protein 200.00 mg/L (0.0-10.00) H 01/31/25 06:27
Most recent labs reviewed.
Micro Results:
01/31/25 15:07 Blood Culture - Preliminary
Blood/Venous No Growth in 24 hours- Final report to follow
01/28/25 13:36 Blood Culture - Preliminary
Blood/Venous No Growth in 4 days- Final report to follow
01/31/25 17:16 Blood Culture - Pending
Blood/Venous
01/27/25 11:15 Blood Culture - Preliminary
Blood/Venous Staph aureus MRSA
Gram Stain - Preliminary
01/26/25 09:22 Blood Culture - Final
Blood/Venous Staph aureus MRSA
Gram Stain - Final
01/26/25 09:22 Blood Culture - Final
Blood/Venous Staph aureus MRSA
Gram Stain - Final
01/26/25 13:50 Urine Culture - Final
Urine No Significant Growth
01/26/25 09:22 Influenza Types A & B (MAUREEN) - Final
Nasal Swab Negative for Influenza A & B, NAAT
Negative results must be combined with clinical observations
and patient history.
Nucleic Acid Amplification test (NAAT)performed on the
[employer] platform.
Imaging:
01/31/2025 MRI left ankle: severe osseous destructive changes and bone marrow signal alteration in the hindfoot. Primary consideration would include sequela of osteomyelitis versus very severe Charcot arthrosis. Please see full dictation for
additional detail.
01/30/2025 ECHO (TTE): normal ventricular size and systolic function. Trace mitral regurgitation. Mild tricuspid regurgitation. No pericardial effusion. No noted vegetations.
01/26/2025 x-ray left ankle: Bony destruction of the talar dome, sparing the distal talus. Findings very likely represents sequela of osteomyelitis, new since examination 2017. There is some bony loss involving the distal tibia and fibula, which is
also likely from osteomyelitis. Periosteal new bone formation involving the distal tibia and fibula, likely findings of chronic osteomyelitis.
[2025-02-01 17:02] LABS: Glucose - Point of Care 146 mg/dl (70-99)
[2025-02-01] MEDS: LOVENOX 40 MG SC (17:31)
--- NOTE | 2025-02-01 17:49 | CM ---
Spoke with pt. She is having her foot amputated on Thursday. Will watch for DC needs post op
Plan: TBD
--- NOTE | 2025-02-01 17:58 | W.PN.HOSP.TC ---
Addendum entered and electronically signed by Angel Mccullough MD 02/01/25 21:43:
Attending Addendum-
I saw and evaluated the patient. I reviewed the resident�s note and agree with findings and plan as documented in the resident�s note. Sub: complains of significant pain in b/l LE. afebrile in last 24 hours. denies chills CP palps. Full 12 point
ROS reviewed and negative except as documented Exam: Vitals reviewed in chart GEN-NAD heart RRR no MRG lungs decreased BS @ bases abd soft LE-LLE bandaged, right knee in immobilizer
# Lt ankle OM with MRSA bacteremia
# History of left ankle ORIF with associated infection and hardware removal
-MRI L Ankle 01/31-
Severe osseous destructive changes and bone marrow signal alteration in the hindfoot, as described above. Primary considerations would include the sequela of osteomyelitis versus a very severe Charcot arthrosis, which are difficult to definitively
differentiate by imaging.
Unstable osteochondral lesion of the talar head.
Large soft tissue wound of the lateral ankle extending close to the lateral cortex of the distal fibula
-cont wound care
-blood cx pos for MRSA 01/26 x 2 and 01/27
-blood cx- 01/28-NGTD, 01/31-NGTD
-echo 01/30-Normal left ventricular size and systolic function without regional wall motion abnormalities. Estimated left ventricular ejection fraction is 56%
-cont daptomycin #2 previously on vanco x 4 days
-d/w podiatry-rec amputation
-c/s vasc surg- for Lt BKA hopefully in am NPOpMN
-cont pain control
-ID input appreciated
# R knee slightly displaced fracture superior medial margin of the medial femoral condyle.
# Fall secondary to weakness
-Cont stabilization with immobilizer, non surgical management
-Pain control with Tylenol ATC, and Dilaudid PRN
-Ortho on board, rec full-time immobilization in a knee immobilizer and nonweightbearing.
-PT OT
# Hypokalemia- replete, repeat BMP in am
# HLD-cont atorva
# Type 2 diabetes-Holding glyburide, metformin, cont Sliding scale insulin, Diabetic diet, monitor accuchecks closely
# Hypertension-Continue metoprolol
Diet: Diabetic diet
DVT PPx: Lovenox SQ
CODE STATUS: Full code
Dispo Eventual DC to SNF
Time spent coordinating care, review of plan of care with resident, personally reviewed records in EMR, med rec, consults, notes, labs, radiology, d/w nursing vasc surg, pods � 54 mins
Original Note:
Today's Communication/Plan
-
Xray of the left femur and ankle was done today
continue Daptomycin 900mg IV
stopped oxycodon 5mg
start Dilaudid 2mg PO PRN Q6
vascular surgeon consulted. Per Dr Yeager notes discussed the amputation surgery with the risks and she is amenable to proceed with the amputation and there is a variability tomorrow otherwise the next schedule would be Thursday02/06/2025 and she wishes
to discuss with her family further though and wait a couple days and she will be added to the scheduled on Thursday02/06/2025.
I spoke with the pt today and she stated that if the procedure can be done tomorrow late afternoon she can do the procedure otherwise she will wait till 02/06/2025.
NPO after midnight just in case there will be availability tomorrow late afternoon.
Assessment / Plan
Assessment / Plan
Impression:
74-year-old female with past medical history of left ankle ORIF last year complicated by infected hardware status post removal at [facility], hypertension, hyperlipidemia, type 2 diabetes, history of left thigh lesion s/p ultrasound guided
biopsy in 2019, p/w fever of 102, generalized weakness, and fall. No head injury.
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
Assessment and plan:
#sepsis secondary to Left lower extremity cellulitis
#History of left ankle ORIF, with associated infection and hardware removal
- ID consulted and following
- Patient started on vancomycin and cefepime, DC'd cefepime due to blood culture result
- Blood culture X1 01/26 positive for Staph aureus, MRSA
-Blood culture X1 01/26 positive for Staph aureus, MRSA
- Blood culture X1 from 01/27 gram positive cocci in clusters
- Blood culture X1 from 01/28 no growth in 48 hours
- WBC 24.2 on admission, WBC normalized, vitals stable except for one episode of 100.5 fever last night, improved
-urine culture negative
-ID on board
-podiatry on board
-blood culture ordered today
X-RAY of the left femur on 02/01/2025 showed: Longstem left hip arthroplasty with cerclage wires without evidence of hardware complication or periprosthetic fracture.
Xray of the Leg Tibia/fibula Left on 02/01/2025 showed Longstem left hip arthroplasty with cerclage wires without evidence of hardware complication or periprosthetic fracture.
Partially visualized left knee arthroplasty.
echocardiogram ordered today 01/30:
1. Normal left ventricular size and systolic function without regional wall motion abnormalities. Estimated left ventricular ejection fraction is 56% by Agee's method.
2. Normal right ventricular size and systolic function.
3. Trace mitral regurgitation.
4. Mild tricuspid regurgitation with estimated pulmonary artery systolic pressure of 39 mmHg.
5. No pericardial effusion.
6. Compared to prior echocardiogram from 2017, estimated pulmonary artery systolic pressure is higher on the study. Otherwise there is no significant changes.
#Fall secondary to weakness
- Femur x-ray indicating slightly displaced femur fracture
- Consulted orthopedics for right femur
- Consulted podiatry for left ankle/foot as suggested by orthopedics
- Knee immobilizer for right femur
- Pain management as needed
- CT head negative, CT cervical spine negative
- Podiatry ordered left ankle MRI to assess osteomyelitis VS. Charcot foot, still pending
- Urine culture negative
#HLD
- Continue statin
#Type 2 diabetes
- Holding glyburide, metformin
- Sliding scale insulin
- Diabetic diet
#Hypertension
- Continue metoprolol
Diet: Diabetic diet
DVT PPx: Lovenox
CODE STATUS: Full code
Anticipated Discharge: 24 - 48 hours
Subjective/Interval History
-
Date of Service: February 01, 2025
Pt feels nauseous specially after she received her pain medication Oxycodan, Hydromorphone. She has no shortness of breath , no palpitation, or chest pain. He left ankle pain improved with pain meds.
she had a discussion with the vascular surgeon today and discussed the amputation of left extremity. She is amenable to do that but she wants to discussed with her family.
She stated if the surgery can be done late afternoon tomorrow she can do it.
Objective Data
-
Labs:
Laboratory Results
02/01/25
06:38
WBC 13.3 H
Hgb 9.5 L
Hct 29.3 L
Plt Count 369 D
Sodium 138
Potassium 3.4 L
Chloride 107
Carbon Dioxide 23
BUN 12
Creatinine 0.6
Glucose 155 H
Calcium 7.9 L
Total Bilirubin 0.5
AST 19
ALT 19
Alkaline Phosphatase 83
Vital Signs:
Vital Signs
Temp Pulse Resp BP Pulse Ox
98.1 F 72 16 138/66 92
02/01/25 14:47 02/01/25 14:47 02/01/25 14:47 02/01/25 14:47 02/01/25 14:47
I&O
01/31/25 02/01/25 02/02/25
06:59 06:59 06:59
Intake Total 920 / 920 240 / 240
Output Total 900 / 900
Balance 20 / 20 240 / 240
Review of Systems
-
History Source: Patient
Constitutional: Reports No Symptoms
EENT: Reports No Symptoms Reported
Respiratory: Reports No Symptoms
Cardiac: Reports No Symptoms
Abdomen/GI: Reports Nausea
Genitourinary: Reports No Symptoms
Musculoskeletal: Reports Other (Right lower extremity pain, 7 out of 10)
Skin: Reports No Symptoms
Neuro: Reports No Symptoms
Endocrine: Reports No Symptoms
Hematologic / Lymphatic: Reports No Symptoms
Allergy / Immunology: Reports No Symptoms
Psych: Reports Sad
Physical Exam
-
General: Well Developed, Well Nourished, No Apparent Distress and Pain (right lower extremity improving since yesterday)
HEENT: Normocephalic, Atraumatic and Moist Mucous Membranes
Respiratory: Clear to Auscultation
Cardiac: Regular Rhythm
GI: Soft, Nontender and Nondistended
Musculoskeletal: Edema, Left Upper Extrem and Other (left ankle rapped with everton bandage )
Skin: Warm and Dry
Neuro: Awake, Alert and Oriented
Psych: Calm
[2025-02-01] MEDS: DAKIN'S SOLUTION 0.125% 1/4 STRENGTH TOPICAL ×2 (20:20→20:35)
[2025-02-01 21:50] LABS: Glucose - Point of Care 171 mg/dl (70-99)
[2025-02-01 23:39] VITALS: BP 153/64
[2025-02-02] VITALS (11 sets, daily range): BP systolic 113–193; BP diastolic 53–96
[2025-02-02 07:58] LABS: ALT (SGPT) 17 U/L (0-35); AST (SGOT) 17 U/L (14-36); Albumin 2.7 g/dl (3.5-5.0); Alkaline Phosphatase 79 U/L (38-126); Blood Urea Nitrogen 10 mg/dl (7-17); Calcium 8.1 mg/dl (8.4-10.2); Carbon Dioxide 25 mmol/L (22-30); Chloride 108 mmol/L (98-107); Estimated Creatinine Clearance 95 ml/min; Glucose 157 mg/dl (70-99); Hematocrit 29.3 % (37.0-47.0); Hemoglobin 9.8 g/dL (12.0-16.0); Mean Corp Hgb Conc. 33.4 g/dL (33.0-37.0); Mean Corpuscular Volume 79.0 fL (81.0-99.0); Platelet Count 425 10^3/uL (130-400); Potassium 3.7 mmol/L (3.5-5.1); Red Cell Dist. Width 16.8 % (11.5-14.5); Sodium 138 mmol/L (135-145); Total Protein 5.5 g/dl (6.3-8.2); eGFR > 60.00
--- NOTE | 2025-02-02 09:10 | W.PN.UPDATE ---
Update Note
Progress Note Update
Patient seen at bedside this a.m. Patient wishes to proceed with amputation today. I will add her to the end of her schedule. She will most likely go later this afternoon. Continue n.p.o.
[2025-02-02 09:33] LABS: Glucose - Point of Care 157 mg/dl (70-99)
[2025-02-02] MEDS: NOVOLOG FLEXPEN-LOW RESISTANCE SC ×3 (09:34→18:32)
[2025-02-02] MEDS: DESENEX/MITRAZOL/ZEASORB 1 APPLIC TOPICAL ×2 (09:34→19:57)
[2025-02-02] MEDS: BACTROBAN 2% OINTMENT 1 APPLIC NASAL (09:35)
[2025-02-02] MEDS: FEOSOL 325 MG PO (09:36)
[2025-02-02] MEDS: VISBIOME 1 CAP PO (09:36)
[2025-02-02] MEDS: TYLENOL 1000 MG PO ×2 (09:36→21:14)
[2025-02-02] MEDS: SENOKOT-S 1 TABLET PO ×2 (09:36→19:56)
[2025-02-02] MEDS: TOPROL XL 25 MG PO (09:37)
[2025-02-02] MEDS: VITAMIN D3 (cholecalciferol) 25 MCG PO (09:39)
[2025-02-02] MEDS: PERIDEX 0.12% ORAL RINSE 15 ML PO (09:39)
--- NOTE | 2025-02-02 09:46 | PN.CDI ---
CDI
- -
CDI:
Physician Documentation Request
Admit Date: 01/26/25 14:43
Dear Doctor Gustavo,
Patient admitted with Lt ankle OM with MRSA bacteremia
Please clarify which of the following accurately represents the acuity of the osteomyelitis:
____ Acute
Acute on Chronic
Chronic
____ Other - please specify
Use of terms such as suspected, likely, concern for, or probable (associated with a specific diagnosis that is being evaluated, monitored, or treated as if it exists) are acceptable and can be coded in the inpatient setting, when documented at the
time of discharge.
Thank you,
Tammy Bauer RN BSN
CDI Specialist
tiger text
Please use your independent medical judgment in providing your response.
--- NOTE | 2025-02-02 10:06 | PN.CDI ---
CDI
- -
CDI:
Physician Documentation Request
Admit Date: 01/26/25 14:43
Dear Doctor Gustavo,
Patient is admitted for osteomyelitis left ankle.
Progress note states 'History of left ankle ORIF with associated infection and hardware removal'
Please clarify the relationship between these conditions:
Yes, osteomyelitis is related to/associated with/due to prior surgery
No,osteomyelitis is not related to/associated with/due to prior surgery
Unable to determine
Use of terms such as suspected, likely, concern for, or probable (associated with a specific diagnosis that is being evaluated, monitored, or treated as if it exists) are acceptable and can be coded in the inpatient setting, when documented at the
time of discharge.
Thank you,
Tammy Bauer RN ,BSN
CDI Specialist
tiger text
Please use your independent medical judgment in providing your response.
--- NOTE | 2025-02-02 11:07 | W.PN.ID1 ---
Addendum entered and electronically signed by Abner Akins, 02/02/25 13:05:
I saw and evaluated the patient. I reviewed the resident�s note and agree with findings and plan as documented in the resident�s note.
Given sustained bacteremia, would pursue KENYON; if negative, can proceed with 2 weeks abx. If positive for veg, would need 6 weeks abx.
Original Note:
Date of Service
Date of Service: February 02, 2025
Today's Communication
Tentative BKA today
Continue daptomycin
Assessment / Plan
MRSA bacteremia
Leukocytosis
Fever
Left lower extremity cellulitis
Right knee pain/swelling
S/p fall
Right knee displaced fracture (medial femoral condyle)
Severe osseous destructive changes in hindfoot concerning for osteomyelitis
Prior to admission:
HLD
DM
Bilateral cataracts
Hx left ankle osteomyelitis
Recommendations:
MRSA bacteremia
- last positive culture 01/27/25
Leukocytosis
Severe osseous destructive changes in hindfoot concerning for osteomyelitis
--Continue daptomycin.
--Follow blood cultures to assure clearance.
Trend white count and temperature curve.
Tentative (L) BKA today
Chief Complaint
-: Clinical Sepsis and Bacteremia
Subjective / Review of Systems
Patient feels better today than yesterday.
Review of Systems: No Fever, No Chills, No Headache, No Cough, No Sputum Production, No Chest Pain, No Palpitations, No Nausea, No Vomiting and No Dysuria
Vital Signs / Physical Exam
Vital Signs
Vital Signs
Temp Pulse Resp BP Pulse Ox
97.7 F 75 12 143/55 94
02/02/25 07:39 02/02/25 09:37 02/02/25 07:39 02/02/25 09:37 02/02/25 07:39
Physical Exam
Constitutional: Comfortable
Cardiovascular: Regular Rate
Pulmonary: Clear
Gastrointestinal: Soft, Non Tender, Non Distended and Normal Bowel Sounds
Extremities: Other (LLE in bandages )
Skin: Warm and Dry
Neurological: AO x 3
Objective Data
Lab Data
Lab Results
02/02/25 07:07
02/02/25 07:07
ESR 99 mm/hour (0-20) H 01/31/25 06:26
Estimated Creat Clear 95 ml/min 02/02/25 07:07
Lactic Acid Cancelled 01/26/25 13:30
Total Bilirubin 0.7 mg/dl (0.2-1.3) 02/02/25 07:07
AST 17 U/L (14-36) 02/02/25 07:07
ALT 17 U/L (0-35) 02/02/25 07:07
Alkaline Phosphatase 79 U/L (38-126) 02/02/25 07:07
C-Reactive Protein 200.00 mg/L (0.0-10.00) H 01/31/25 06:27
Most recent labs reviewed.
Micro Results:
01/31/25 17:16 Blood Culture - Preliminary
Blood/Venous No Growth in 24 hours- Final report to follow
01/31/25 15:07 Blood Culture - Preliminary
Blood/Venous No Growth in 24 hours- Final report to follow
01/28/25 13:36 Blood Culture - Preliminary
Blood/Venous No Growth in 4 days- Final report to follow
01/27/25 11:15 Blood Culture - Preliminary
Blood/Venous Staph aureus MRSA
Gram Stain - Preliminary
01/26/25 09:22 Blood Culture - Final
Blood/Venous Staph aureus MRSA
Gram Stain - Final
01/26/25 09:22 Blood Culture - Final
Blood/Venous Staph aureus MRSA
Gram Stain - Final
01/26/25 13:50 Urine Culture - Final
Urine No Significant Growth
01/26/25 09:22 Influenza Types A & B (MAUREEN) - Final
Nasal Swab Negative for Influenza A & B, NAAT
Negative results must be combined with clinical observations
and patient history.
Nucleic Acid Amplification test (NAAT)performed on the
[employer] platform.
Imaging:
01/31/2025 MRI left ankle: severe osseous destructive changes and bone marrow signal alteration in the hindfoot. Primary consideration would include sequela of osteomyelitis versus very severe Charcot arthrosis. Please see full dictation for
additional detail.
01/30/2025 ECHO (TTE): normal ventricular size and systolic function. Trace mitral regurgitation. Mild tricuspid regurgitation. No pericardial effusion. No noted vegetations.
01/26/2025 x-ray left ankle: Bony destruction of the talar dome, sparing the distal talus. Findings very likely represents sequela of osteomyelitis, new since examination 2017. There is some bony loss involving the distal tibia and fibula, which is
also likely from osteomyelitis. Periosteal new bone formation involving the distal tibia and fibula, likely findings of chronic osteomyelitis.
[2025-02-02 11:23] LABS: Glucose - Point of Care 164 mg/dl (70-99)
[2025-02-02 11:29] LABS: Nucleated Red Blood Cells % 0.1 %
[2025-02-02 14:26] LABS: Glucose - Point of Care 120 mg/dl (70-99)
--- NOTE | 2025-02-02 15:22 | W.SUR.PREOP ---
Pre-Operative Surgical Note
-
I have examined this patient prior to the performance of the scheduled procedure.
The patient's condition is unchanged from the time of the current History and
Physical and the patient is able to undergo the scheduled procedure.
--- NOTE | 2025-02-02 16:41 | W.SUR.POST ---
Surgical Immediate Post Op
Note
Pre Op Diagnosis: nonhealing wound
Post Op Diagnosis: same
Procedure Performed: Left below the knee amputation
Primary Surgeon: Toy
Assist: Amos STRONG
Anesthesia: general
Estimated Blood Loss: 200cc
Fluids: see anesthesia flow sheet
Drains/Shunts: none
Specimens/Cultures: leg
Doppler/Duplex/Angio (Y/N): N
Complications: none
Operative Findings: successful amputation
--- NOTE | 2025-02-02 17:29 | OR.RPT ---
Operative Report
Operative Report
PROCEDURE DATE: 02/02/2025
Preoperative diagnosis: Osteomyelitis left foot, nonsalvageable left foot.
Postoperative diagnosis: Same
Procedure: Left below the knee amputation
Surgeon: Toy
Lump Roller: FLAQUITA Trinidad, required for all aspects of procedure including assistance with traction/countertraction, assistance with closure.
Complications: None
Anesthesia: General
Indications for procedure:
As above osteomyelitis left foot. Foot and ankle orthopedic surgery felt foot was not salvageable. We were asked to evaluate for BKA. Discussed with patient extensively BKA. Discussed risk/benefits/alternatives. She understood all wished to
proceed.
Description of procedure:
Patient was identified brought to the operating room placed on the table in supine position. After the adequate administration of anesthesia and perioperative antibiotics she was prepped and draped in the standard surgical fashion. A standard
preoperative timeout was undertaken and everybody was in agreement the plan. A quick spot fluoroscopy was undertaken given that the patient's knee prosthesis joann extended into the tibia little bit and on the preoperative x-ray imaging there was a
little findings/opacity in the tibia just below the end of the joann that I did not know if it was some sort of glue or inflammatory process. I wanted to make sure that the tibial transection was just distal to that. Confirm that fluoroscopically.
Now, I made standard posterior flap type incisions were made in the left lower extremity with a transverse incision anteriorly at approximately 12 to 15 cm distal to the tibial tuberosity. Medial and lateral longitudinal incisions were carried
down. And then posterior transverse incision was then again carried down. The incisions were carried through the skin subcutaneous tissue with the electrocautery and then through the fascial layer. Hemostasis was achieved as we progressed. Next
the muscles of the anterior and lateral compartments of the calf were divided with electrocautery. This portion proved to be slightly challenging because the patient's leg was relatively fixed and laterally rotated. This made dissection/division
of the anterior and lateral compartment muscles and tissues challenging. I finally was able to isolate the the anterior tibial neurovascular bundle, and then ligated between silk ties and then divided. The muscles/attachments of the tibia medially
were also divided with electrocautery. As such the tibia was then freed of all its attachments and a periosteal elevator was used to elevate the periosteum circumferentially. The fibula was similarly freed of all its surrounding soft tissue and
muscles. These were transected with electrocautery. The tissues were slightly inflamed also making this all more challenging. The intermuscular septum was then divided with electrocautery. Circumferential dissection of the fibula was undertaken
carefully and a periosteal elevator was used to elevate the periosteum circumferentially around the fibula as well. At this point the tibia and fibula were transected with an oscillating saw. The posterior tissues were then cut with a amputation
knife and a direction parallel to the access of the leg. This was then teed off in a perpendicular access at the distal posterior transverse skin incision site. The leg specimen was then removed. The peroneal and posterior tibial arteries were
then controlled with hemostats. These were then ligated using silk suture ligatures. Next hemostasis was meticulously achieved throughout the muscle bed with [id number] 2-0 and 3-0 silk suture. Next the oscillating saw was used to bevel
the anterior aspect of the tibia so as to avoid any pressure point. A rasp was used to smooth the edges. The fibula was then re- transected with the oscillating saw to a point approximately 1 cm proximal to the tibial transection. A rasp was used
to smooth the edges. Next we irrigated copiously. Hemostasis was confirmed. We then closed in layers after trimming the skin flap of any redundant/dogear type projections. 0 Vicryl interrupted suture was used to reapproximate the fascial layer.
Next running 3-0 Vicryl deep dermal suture layer was run. Finally skin clips were applied. Bulky dressings were applied. The patient tolerated procedure well.
--- NOTE | 2025-02-02 17:33 | W.PN.HOSP.TC ---
Today's Communication/Plan
-
Below knee amputation performed today for her leg by dr Yeager
continue Daptomycin 900 in device
resumed diabetic diet after surgery
Assessment / Plan
Assessment / Plan
Impression:
74-year-old female with past medical history of left ankle ORIF last year complicated by infected hardware status post removal at [facility], hypertension, hyperlipidemia, type 2 diabetes, history of left thigh lesion s/p ultrasound guided
biopsy in 2019, p/w fever of 102, generalized weakness, and fall. No head injury.
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
Assessment and plan:
#Lt ankle OM with MRSA bacteremia
-The cause of OM is likely related to wound infection due to unhealed wound since the left knee infection and hard mojica removal s/p left ankle ORIF
- ID consulted and following
-discontinued cefipime
-discontinued vancomycin 4 days
-Daptomycin 900 mg day 3
- Blood culture X1 01/26 positive for Staph aureus, MRSA
- Blood culture X1 01/26 positive for Staph aureus, MRSA
- Blood culture X1 from 01/27 gram positive cocci in clusters
- Blood culture X1 from 01/28 no growth in 48 hours
- Blood culture X2 from 01/31 no growth to date
- WBC 13.3-13.7
-urine culture negative
-ID on board
-podiatry on board
-vascular surgeon on bard
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
X-RAY of the left femur on 02/01/2025 showed: Longstem left hip arthroplasty with cerclage wires without evidence of hardware complication or periprosthetic fracture.
Xray of the Leg Tibia/fibula Left on 02/01/2025 showed Longstem left hip arthroplasty with cerclage wires without evidence of hardware complication or periprosthetic fracture.
Partially visualized left knee arthroplasty.
echocardiogram ordered today 12/15:
1. Normal left ventricular size and systolic function without regional wall motion abnormalities. Estimated left ventricular ejection fraction is 56% by Agee's method.
2. Normal right ventricular size and systolic function.
3. Trace mitral regurgitation.
4. Mild tricuspid regurgitation with estimated pulmonary artery systolic pressure of 39 mmHg.
5. No pericardial effusion.
6. Compared to prior echocardiogram from 2017, estimated pulmonary artery systolic pressure is higher on the study. Otherwise there is no significant changes.
#Fall secondary to weakness
- Femur x-ray indicating slightly displaced femur fracture
- Consulted orthopedics for right femur
- Consulted podiatry for left ankle/foot as suggested by orthopedics
- Knee immobilizer for right femur
- Pain management as needed
- CT head negative, CT cervical spine negative
- Podiatry ordered left ankle MRI to assess osteomyelitis VS. Charcot foot, still pending
- Urine culture negative
#HLD
- Continue statin
#Type 2 diabetes
- Holding glyburide, metformin
- Sliding scale insulin
- Diabetic diet
#Hypertension
- Continue metoprolol
Diet: Diabetic diet
DVT PPx: Lovenox
CODE STATUS: Full code
Anticipated Discharge: > 48 hours
Subjective/Interval History
-
Date of Service: February 02, 2025
Objective Data
-
Labs:
Laboratory Results
02/02/25 02/02/25
07:07 17:28
WBC 13.7 H Pending
Hgb 9.8 L Pending
Hct 29.3 L Pending
Plt Count 425 H Pending
Sodium 138
Potassium 3.7
Chloride 108 H
Carbon Dioxide 25
BUN 10
Creatinine 0.5 L
Glucose 157 H
Calcium 8.1 L
Total Bilirubin 0.7
AST 17
ALT 17
Alkaline Phosphatase 79
Vital Signs:
Vital Signs
Temp Pulse Resp BP Pulse Ox
98.8 F 56 25 193/96 90
02/02/25 14:10 02/02/25 14:30 02/02/25 14:30 02/02/25 14:08 02/02/25 14:30
I&O
02/01/25 02/02/25 02/03/25
06:59 06:59 06:59
Intake Total 240 / 240 720 / 720
Output Total 650 / 650
Balance 240 / 240 720 / 720 -650 / -650
[2025-02-02 17:43] LABS: Glucose - Point of Care 156 mg/dl (70-99)
--- NOTE | 2025-02-02 17:48 | SUR.PHASEI ---
Rec'd sleepy in bed with HOB elevated low fowlers, oriented x 3 by RN, ressured, denies c/o, lab work drawn, to dc, stacie to BSD cl yellow urine
[2025-02-02 17:53] LABS: Hematocrit 31.0 % (37.0-47.0); Hemoglobin 9.7 g/dL (12.0-16.0); Mean Corp Hgb Conc. 31.3 g/dL (33.0-37.0); Mean Corpuscular Volume 82.4 fL (81.0-99.0); Platelet Count 446 10^3/uL (130-400); Red Cell Dist. Width 17.2 % (11.5-14.5)
[2025-02-02] MEDS: DILAUDID PCA 30 IV (17:56)
--- NOTE | 2025-02-02 18:12 | SUR.PHASEI ---
Arouses easily Dr Zarate in, ADMINISTRATIVE PROCESSOR started, pt too sleepy to understand teaching
[2025-02-02] MEDS: D5/0.45%NACL 1000 IV (18:16)
--- NOTE | 2025-02-02 18:23 | SUR.PHASEI ---
DIRECTOR OF HOTEL OPERATIONS instructions given, appearsmto understand using DIRECTOR OF HOTEL OPERATIONS well, oral care given, to well, awaiting transport until 6:40mper floor RN
[2025-02-02] MEDS: TYLENOL PO (18:31)
[2025-02-02] MEDS: MIRALAX PO (18:31)
[2025-02-02] MEDS: DAKIN'S SOLUTION 0.125% 1/4 STRENGTH TOPICAL ×2 (18:31→19:35)
[2025-02-02] MEDS: CUBICIN 18 MG IV (19:42)
[2025-02-02] MEDS: LOVENOX 40 MG SC (19:42)
[2025-02-02] MEDS: COLACE 100 MG PO (19:56)
--- NOTE | 2025-02-02 20:46 | W.PN.UPDATE ---
Update Note
Progress Note Update
Attending Addendum-
I saw and evaluated the patient. I reviewed the resident�s note and agree with findings and plan as documented in the resident�s note. Sub: pain in LLE better controlled. afebrile in last 24 hours. denies chills CP palps. 'Guess i gotta get it taken
off' Full 12 point ROS reviewed and negative except as documented Exam: Vitals reviewed in chart GEN-NAD heart RRR no MRG lungs decreased BS @ bases abd soft LE-LLE bandaged, right knee in immobilizer
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
# History of left ankle ORIF with associated infection and hardware removal
-MRI L Ankle 01/31-
Severe osseous destructive changes and bone marrow signal alteration in the hindfoot, as described above. Primary considerations would include the sequela of osteomyelitis versus a very severe Charcot arthrosis, which are difficult to definitively
differentiate by imaging.
Unstable osteochondral lesion of the talar head.
Large soft tissue wound of the lateral ankle extending close to the lateral cortex of the distal fibula
-cont wound care
-blood cx pos for MRSA 01/26 x 2 and 01/27
-blood cx- 01/28-NGTD, 01/31-NGTD
-echo 01/30-Normal left ventricular size and systolic function without regional wall motion abnormalities. Estimated left ventricular ejection fraction is 56%
-cont daptomycin #3 previously on vanco x 4 days
-for left BKA 02/02
-cont pain control
-ID input appreciated-may need KENYON if no veg continue abx x 2 weeks
# R knee slightly displaced fracture superior medial margin of the medial femoral condyle.
# Fall secondary to weakness
-Cont stabilization with immobilizer, non surgical management
-Pain control with Tylenol ATC, and Dilaudid PRN
-Ortho on board, rec full-time immobilization in a knee immobilizer and nonweightbearing.
-PT OT
# Hypokalemia- replete, repeat BMP in am
# HLD-cont atorva
# Type 2 diabetes-Holding glyburide, metformin, cont Sliding scale insulin, Diabetic diet, monitor accuchecks closely
# Hypertension-Continue metoprolol
Diet: Diabetic diet
DVT PPx: Lovenox SQ
CODE STATUS: Full code
Dispo Eventual DC to SNF
Time spent coordinating care, review of plan of care with resident, personally reviewed records in EMR, med rec, consults, notes, labs, radiology, d/w nursing vasc surg� 52 mins
[2025-02-02 21:16] LABS: Glucose - Point of Care 246 mg/dl (70-99)
[2025-02-03 03:27] VITALS: BP 106/75
[2025-02-03 07:25] VITALS: BP 133/56
[2025-02-03 07:40] LABS: Glucose - Point of Care 285 mg/dl (70-99)
--- NOTE | 2025-02-03 08:40 | W.PN.ID1 ---
Addendum entered and electronically signed by Sheela Little MD 02/03/25 13:37:
I saw and evaluated the patient. I reviewed the resident�s note and agree with findings and plan as documented in the resident�s note.
MRSA bacteremia
Nonsalvageable left foot osteo s/p BKA 02/02/25
- TTE no gross vegetation
- Continue Daptomycin for at least 2 weeks or longer (6 weeks) if KENYON + vegetation. Can set up outpt KENYON.
- CK increased from 29 to 183 - possibly due to BKA rather than from daptomycin.
- Continue to trend CK.
Original Note:
Date of Service
Date of Service: February 03, 2025
Today's Communication
Continue antibiotics
Assessment / Plan
MRSA bacteremia
Leukocytosis
Fever
Left lower extremity cellulitis
Right knee pain/swelling
S/p fall
Right knee displaced fracture (medial femoral condyle)
Severe osseous destructive changes in hindfoot concerning for osteomyelitis vs charcot
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
Prior to admission:
HLD
DM
Bilateral cataracts
Hx left ankle osteomyelitis
Recommendations:
MRSA bacteremia
- last positive culture 01/27/25
Leukocytosis
Severe osseous destructive changes in hindfoot concerning for osteomyelitis vs charcot arthrosis s/p LLE BKA 02/02/2025 POD #1
--Continue daptomycin to complete a 2 week course
--Follow blood cultures to assure clearance.
--Given MRSA bacteremia, recommend KENYON in 1-2 weeks to evaluate for possible vegetations. If present, will need a 6 week course of antibiotics.
Trend white count and temperature curve.
Chief Complaint
-: Clinical Sepsis and Bacteremia
Subjective / Review of Systems
Pain controlled well. No complaints this am.
Review of Systems: No Fever, No Chills, No Headache, No Cough, No Chest Pain, No Palpitations, No Abdominal Pain, No Nausea, No Vomiting, No Diarrhea and No Joint Pain
Vital Signs / Physical Exam
Vital Signs
Vital Signs
Temp Pulse Resp BP Pulse Ox
97.7 F 71 18 106/75 95
02/03/25 03:27 02/03/25 03:27 02/03/25 07:00 02/03/25 03:27 02/03/25 07:00
Physical Exam
Constitutional: No Acute Distress
Cardiovascular: Regular Rate and S1/S2
Pulmonary: Clear
Gastrointestinal: Soft, Non Tender, Non Distended and Normal Bowel Sounds
Extremities: Other (LLE in bandages )
Skin: Warm and Dry
Neurological: AO x 3
Psychological: Calm
Objective Data
Lab Data
ESR 99 mm/hour (0-20) H 01/31/25 06:26
Estimated Creat Clear 95 ml/min 02/02/25 07:07
Lactic Acid Cancelled 01/26/25 13:30
Total Bilirubin 0.7 mg/dl (0.2-1.3) 02/02/25 07:07
AST 17 U/L (14-36) 02/02/25 07:07
ALT 17 U/L (0-35) 02/02/25 07:07
Alkaline Phosphatase 79 U/L (38-126) 02/02/25 07:07
C-Reactive Protein 200.00 mg/L (0.0-10.00) H 01/31/25 06:27
Most recent labs reviewed.
Micro Results:
01/31/25 17:16 Blood Culture - Preliminary
Blood/Venous No Growth in 48 hours- Final report to follow
01/31/25 15:07 Blood Culture - Preliminary
Blood/Venous No Growth in 48 hours- Final report to follow
01/28/25 13:36 Blood Culture - Final
Blood/Venous No Growth - Final Report
01/27/25 11:15 Blood Culture - Preliminary
Blood/Venous Staph aureus MRSA
Gram Stain - Preliminary
01/26/25 09:22 Blood Culture - Final
Blood/Venous Staph aureus MRSA
Gram Stain - Final
01/26/25 09:22 Blood Culture - Final
Blood/Venous Staph aureus MRSA
Gram Stain - Final
01/26/25 13:50 Urine Culture - Final
Urine No Significant Growth
01/26/25 09:22 Influenza Types A & B (MAUREEN) - Final
Nasal Swab Negative for Influenza A & B, NAAT
Negative results must be combined with clinical observations
and patient history.
Nucleic Acid Amplification test (NAAT)performed on the
[employer] platform.
Imaging:
01/31/2025 MRI left ankle: severe osseous destructive changes and bone marrow signal alteration in the hindfoot. Primary consideration would include sequela of osteomyelitis versus very severe Charcot arthrosis. Please see full dictation for
additional detail.
01/30/2025 ECHO (TTE): normal ventricular size and systolic function. Trace mitral regurgitation. Mild tricuspid regurgitation. No pericardial effusion. No noted vegetations.
01/26/2025 x-ray left ankle: Bony destruction of the talar dome, sparing the distal talus. Findings very likely represents sequela of osteomyelitis, new since examination 2017. There is some bony loss involving the distal tibia and fibula, which is
also likely from osteomyelitis. Periosteal new bone formation involving the distal tibia and fibula, likely findings of chronic osteomyelitis.
[2025-02-03 08:48] LABS: Hematocrit 26.9 % (37.0-47.0); Hemoglobin 8.6 g/dL (12.0-16.0); Mean Corp Hgb Conc. 32.0 g/dL (33.0-37.0); Mean Corpuscular Volume 78.9 fL (81.0-99.0); Platelet Count 466 10^3/uL (130-400); Red Cell Dist. Width 17.2 % (11.5-14.5)
[2025-02-03] MEDS: FEOSOL 325 MG PO (09:02)
[2025-02-03] MEDS: VITAMIN D3 (cholecalciferol) 25 MCG PO (09:02)
[2025-02-03] MEDS: COLACE 100 MG PO (09:02)
[2025-02-03] MEDS: TYLENOL 1000 MG PO ×2 (09:02→16:07)
[2025-02-03] MEDS: TOPROL XL 25 MG PO (09:02)
[2025-02-03] MEDS: VISBIOME 1 CAP PO (09:02)
[2025-02-03] MEDS: MIRALAX 17 GRAMS PO (09:02)
[2025-02-03 09:03] LABS: ALT (SGPT) 16 U/L (0-35); AST (SGOT) 19 U/L (14-36); Albumin 2.7 g/dl (3.5-5.0); Alkaline Phosphatase 71 U/L (38-126); Blood Urea Nitrogen 15 mg/dl (7-17); Calcium 7.1 mg/dl (8.4-10.2); Carbon Dioxide 24 mmol/L (22-30); Chloride 106 mmol/L (98-107); Estimated Creatinine Clearance 95 ml/min; Glucose 220 mg/dl (70-99); Potassium 3.9 mmol/L (3.5-5.1); Sodium 136 mmol/L (135-145); Total Protein 5.5 g/dl (6.3-8.2); eGFR > 60.00
[2025-02-03] MEDS: SENOKOT-S 1 TABLET PO (09:03)
[2025-02-03] MEDS: NOVOLOG FLEXPEN-LOW RESISTANCE 3 UNITS SC (09:04)
[2025-02-03] MEDS: DAKIN'S SOLUTION 0.125% 1/4 STRENGTH TOPICAL ×2 (09:04→21:42)
[2025-02-03 09:27] LABS: Nucleated Red Blood Cells % 0 %
[2025-02-03 11:43] LABS: Glucose - Point of Care 249 mg/dl (70-99)
[2025-02-03] MEDS: NOVOLOG FLEXPEN-LOW RESISTANCE 2 UNITS SC (12:12)
[2025-02-03] MEDS: DESENEX/MITRAZOL/ZEASORB 1 APPLIC TOPICAL ×2 (12:12→21:43)
[2025-02-03] MEDS: CITROMA 300 ML PO (13:23)
[2025-02-03 15:20] VITALS: BP 113/51
--- NOTE | 2025-02-03 15:44 | W.PN.UPDATE ---
Update Note
Progress Note Update
Comfortable in bed eating breakfast
Pain controlled on TRANSIT WORKER
Amputation site dressing clean and dry
Continue TRANSIT WORKER
Will return to take dressing down tomorrow
Call with questions/concerns
Roderick Connors III, MD
Vascular Surgery
[facility]
[2025-02-03] MEDS: CUBICIN 18 MG IV (16:07)
[2025-02-03 16:40] LABS: Glucose - Point of Care 162 mg/dl (70-99)
--- NOTE | 2025-02-03 16:59 | W.PN.UPDATE ---
Update Note
Progress Note Update
Outpatient cardiology follow up visit arranged to arrange KENYON. If KENYON felt to be needed more urgently while inpatient, can reassess next week.
[2025-02-03] MEDS: LOVENOX 40 MG SC (17:11)
[2025-02-03] MEDS: NOVOLOG FLEXPEN-LOW RESISTANCE 1 UNITS SC (17:12)
[2025-02-03] MEDS: NSS 1000 IV (17:59)
--- NOTE | 2025-02-03 18:09 | CM ---
Pt is POD#1 BKA. Continues with pain management. Continues with IV ABX. Pt refused PT today. Will discuss DCP after PT/OT evals are completed
Plan:TBD
[2025-02-03 19:38] VITALS: BP 124/60
--- NOTE | 2025-02-03 19:58 | W.PN.HOSP.TC ---
Addendum entered and electronically signed by Angel Mccullough MD 02/03/25 21:43:
Attending Addendum-
I saw and evaluated the patient. I reviewed the resident�s note and agree with findings and plan as documented in the resident�s note. Sub: pain in LLE stump controlled with [employer] V[employer]ERINARIAN. afebrile. denies chills CP palps. Denies SOB. Full 12 point ROS
reviewed and negative except as documented Exam: Vitals reviewed in chart GEN-NAD heart RRR no MRG lungs decreased BS @ bases abd soft LE-Lt BKA stump wrapped, right knee in immobilizer Neuro AAO x 3 - quinones in place draining clear yellow urine
Plan:
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
# History of left ankle ORIF with associated infection and hardware removal
-MRI L Ankle 01/31-
Severe osseous destructive changes and bone marrow signal alteration in the hindfoot, as described above. Primary considerations would include the sequela of osteomyelitis versus a very severe Charcot arthrosis, which are difficult to definitively
differentiate by imaging.
Unstable osteochondral lesion of the talar head.
Large soft tissue wound of the lateral ankle extending close to the lateral cortex of the distal fibula
-cont wound care
-blood cx pos for MRSA 01/26 x 2 and 01/27
-blood cx- 01/28-NGTD, 01/31-NGTD
-echo 01/30-Normal left ventricular size and systolic function without regional wall motion abnormalities. Estimated left ventricular ejection fraction is 56%
-cont daptomycin #4 previously on vanco x 4 days, weekly CK while on dapto
-Left BKA 02/02 Dr. Yeager
-cont pain control with [employer] VETERINARIAN
-post op quinones placed 02/02 - DC in 24 to 48 hours
-ID input appreciated-check KENYON if no veg continue abx x 2 weeks, cards c/s-KENYON can be done as OP
# R knee slightly displaced fracture superior medial margin of the medial femoral condyle.
# Fall secondary to weakness
-Cont stabilization with immobilizer, non surgical management
-Pain control with Tylenol ATC, and Dilaudid [employer] V[employer]ERINARIAN
-Ortho on board, rec full-time immobilization in a knee immobilizer and nonweightbearing.
-PT OT
# Acute hypoxemic Respiratory Failure
- post op
- wean o2 for sats > 92%
- start IS
- check CXR
# Hypokalemia- replete prn
# HLD-cont atorva
# Type 2 diabetes-Holding glyburide, metformin, cont Sliding scale insulin, Diabetic diet, monitor accuchecks closely
# Hypertension-Continue metoprolol
Diet: Diabetic diet
DVT PPx: Lovenox SQ
CODE STATUS: Full code
Dispo Eventual DC to SNF
Time spent coordinating care, review of plan of care with resident, personally reviewed records in EMR, med rec, consults, notes, labs, radiology, d/w nursing vasc surg cards ID � 53 mins
Original Note:
Today's Communication/Plan
-
Continue Daptomycin
ID recc Continue Daptomycin for at least 2 weeks or longer (6 weeks) if KENYON + vegetation. Can set up outpt KENYON.
cardiology consulted and reccs Outpatient cardiology follow up visit arranged to arrange EKNYON. If KENYON felt to be needed more urgently while inpatient, can reassess next week.
Assessment / Plan
Assessment / Plan
Impression:
74-year-old female with past medical history of left ankle ORIF last year complicated by infected hardware status post removal at [facility], hypertension, hyperlipidemia, type 2 diabetes, history of left thigh lesion s/p ultrasound guided
biopsy in 2019, p/w fever of 102, generalized weakness, and fall. No head injury.
A week and a half ago [employer], she developed wound of left ankle with redness and swelling.
Assessment and plan:
#Lt ankle OM with MRSA bacteremia
-The cause of OM is likely related to wound infection due to unhealed wound since the left knee infection and hard mojica removal s/p left ankle ORIF
- ID consulted and following
-discontinued cefipime
-discontinued vancomycin 4 days
-Daptomycin 900 mg day 4
- Blood culture X1 01/26 positive for Staph aureus, MRSA
- Blood culture X1 01/26 positive for Staph aureus, MRSA
- Blood culture X1 from 01/27 gram positive cocci in clusters
- Blood culture X1 from 01/28 no growth in 48 hours
- Blood culture X2 from 01/31 no growth to date
- WBC 13.3-13.7-14.4-14.6
-urine culture negative
-ID on board
-podiatry on board
-vascular surgeon on bard
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
- ID reccs KENYON as out patient visit
- cardiology consulted , reccs KENYON out pt visit to follow up with cardiology
X-RAY of the left femur on 02/01/2025 showed: Longstem left hip arthroplasty with cerclage wires without evidence of hardware complication or periprosthetic fracture.
Xray of the Leg Tibia/fibula Left on 02/01/2025 showed Longstem left hip arthroplasty with cerclage wires without evidence of hardware complication or periprosthetic fracture.
Partially visualized left knee arthroplasty.
echocardiogram ordered today 01/30:
1. Normal left ventricular size and systolic function without regional wall motion abnormalities. Estimated left ventricular ejection fraction is 56% by Agee's method.
2. Normal right ventricular size and systolic function.
3. Trace mitral regurgitation.
4. Mild tricuspid regurgitation with estimated pulmonary artery systolic pressure of 39 mmHg.
5. No pericardial effusion.
6. Compared to prior echocardiogram from 2017, estimated pulmonary artery systolic pressure is higher on the study. Otherwise there is no significant changes.
#Fall secondary to weakness
- Femur x-ray indicating slightly displaced femur fracture
- Consulted orthopedics for right femur
- Consulted podiatry for left ankle/foot as suggested by orthopedics
- Knee immobilizer for right femur
- Pain management as needed
- CT head negative, CT cervical spine negative
- Podiatry ordered left ankle MRI to assess osteomyelitis VS. Charcot foot, still pending
- Urine culture negative
#HLD
- Continue statin
#Type 2 diabetes
- Holding glyburide, metformin
- Sliding scale insulin
- Diabetic diet
#Hypertension
- Continue metoprolol
Diet: Diabetic diet
DVT PPx: Lovenox
CODE STATUS: Full code
Anticipated Discharge: > 48 hours
Subjective/Interval History
-
Date of Service: February 03, 2025
No overnight event, She has no pain which controlled with pain med. Denies chest pain, shortness of breath, she still constipated since last . denies abd pain, nausea, vomiting.
Objective Data
-
Labs:
Laboratory Results
02/03/25
07:21
WBC 14.6 H
Hgb 8.6 L
Hct 26.9 L
Plt Count 466 H
Sodium 136
Potassium 3.9
Chloride 106
Carbon Dioxide 24
BUN 15
Creatinine 0.5 L
Glucose 220 H
Calcium 7.1 L
Total Bilirubin 0.4
AST 19
ALT 16
Alkaline Phosphatase 71
Vital Signs:
Vital Signs
Temp Pulse Resp BP Pulse Ox
98.0 F 76 18 124/60 96
02/03/25 19:38 02/03/25 19:38 02/03/25 19:38 02/03/25 19:38 02/03/25 19:38
I&O
02/02/25 02/03/25 02/04/25
06:59 06:59 06:59
Intake Total 720 / 720 770 / 770 960 / 960
Output Total 1175 / 1175 300 / 300
Balance 720 / 720 -405 / -405 660 / 660
Review of Systems
-
History Source: Patient
Constitutional: Reports No Symptoms
EENT: Reports No Symptoms Reported
Respiratory: Reports No Symptoms
Cardiac: Reports No Symptoms
Genitourinary: Reports No Symptoms
Musculoskeletal: Reports Other (Right lower extremity pain, 7 out of 10)
Skin: Reports No Symptoms
Neuro: Reports No Symptoms
Endocrine: Reports No Symptoms
Hematologic / Lymphatic: Reports No Symptoms
Allergy / Immunology: Reports No Symptoms
Psych: Reports Sad
Physical Exam
-
General: Well Developed, Well Nourished and No Apparent Distress
HEENT: Normocephalic and Atraumatic
Respiratory: Clear to Auscultation
Cardiac: Regular Rhythm and S1/S2
GI: Soft, Nontender and Nondistended
Musculoskeletal: Other (bka)
Skin: Warm, Dry and Rash
Neuro: Awake, Alert and Oriented
Psych: Calm
[2025-02-03 21:30] LABS: Glucose - Point of Care 164 mg/dl (70-99)
[2025-02-03] MEDS: SENOKOT-S PO (21:43)
[2025-02-03] MEDS: COLACE PO (21:43)
[2025-02-03 23:25] VITALS: BP 126/64
[2025-02-04 03:10] VITALS: BP 140/65
[2025-02-04 07:00] VITALS: BP 139/63
[2025-02-04 08:06] LABS: Hematocrit 25.6 % (37.0-47.0); Hemoglobin 8.1 g/dL (12.0-16.0); Mean Corp Hgb Conc. 31.6 g/dL (33.0-37.0); Mean Corpuscular Volume 79.3 fL (81.0-99.0); Platelet Count 462 10^3/uL (130-400); Red Cell Dist. Width 17.1 % (11.5-14.5)
[2025-02-04 08:18] LABS: Glucose - Point of Care 188 mg/dl (70-99)
[2025-02-04] MEDS: NOVOLOG FLEXPEN-LOW RESISTANCE 1 UNITS SC ×3 (08:30→16:45)
[2025-02-04] MEDS: VISBIOME 1 CAP PO (08:31)
[2025-02-04] MEDS: TOPROL XL 25 MG PO (08:31)
[2025-02-04] MEDS: DESENEX/MITRAZOL/ZEASORB 1 APPLIC TOPICAL ×2 (08:31→20:23)
[2025-02-04] MEDS: FEOSOL 325 MG PO (08:31)
[2025-02-04] MEDS: VITAMIN D3 (cholecalciferol) 25 MCG PO (08:31)
[2025-02-04 08:36] LABS: ALT (SGPT) 16 U/L (0-35); AST (SGOT) 21 U/L (14-36); Albumin 2.6 g/dl (3.5-5.0); Alkaline Phosphatase 75 U/L (38-126); Blood Urea Nitrogen 15 mg/dl (7-17); Calcium 7.3 mg/dl (8.4-10.2); Carbon Dioxide 25 mmol/L (22-30); Chloride 108 mmol/L (98-107); Estimated Creatinine Clearance 95 ml/min; Glucose 159 mg/dl (70-99); Potassium 4.2 mmol/L (3.5-5.1); Sodium 136 mmol/L (135-145); Total Protein 5.3 g/dl (6.3-8.2); eGFR > 60.00
[2025-02-04] MEDS: COLACE PO ×2 (09:54→20:22)
[2025-02-04] MEDS: SENOKOT-S PO ×2 (09:54→20:23)
[2025-02-04] MEDS: MIRALAX PO (09:54)
--- NOTE | 2025-02-04 09:58 | W.PN.ID1 ---
Date of Service
Date of Service: February 04, 2025
Today's Communication
See below.
Assessment / Plan
MRSA bacteremia
Leukocytosis
Fever
Left lower extremity cellulitis
Right knee pain/swelling
S/p fall
Right knee displaced fracture (medial femoral condyle)
Nonsalvageable severe osseous destructive changes in hindfoot osteo
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
Prior to admission:
HLD
DM
Bilateral cataracts
Hx left ankle osteomyelitis
Recommendations:
MRSA bacteremia
- last positive culture 01/27/25
Blood cx's neg from 01/28 x 1, 01/31 x 2
TTE no gross vegetation
Leukocytosis - trending down
Severe osseous destructive changes in hindfoot osteo s/p LLE BKA 02/02/2025 POD #1
-For KENYON outpatient
- Continue Daptomycin for at least 2 weeks or longer (6 weeks) if outpatient KENYON + vegetation.
- CK continues to trend up, post-op.
Continue to trend CK. DC daptomycin if CK>5x normal + symptoms of myopathy, or CK >10x without sxs.
Chief Complaint
-: Clinical Sepsis and Bacteremia
Subjective / Review of Systems
feels well. no new muscle pain
Vital Signs / Physical Exam
Vital Signs
Vital Signs
Temp Pulse Resp BP Pulse Ox
99.4 F 70 16 139/63 96
02/04/25 07:00 02/04/25 08:31 02/04/25 07:00 02/04/25 08:31 02/04/25 07:00
Physical Exam
Constitutional: No Acute Distress
Cardiovascular: Regular Rate and S1/S2
Pulmonary: Clear
Gastrointestinal: Soft, Non Tender, Non Distended and Normal Bowel Sounds
Extremities: Other (LLE in bandages ); Negative Edema
Wound: Other (Left BKA dressing dry. )
Neurological: AO x 3
Objective Data
Lab Data
Lab Results
02/04/25 07:13
02/04/25 07:13
ESR 99 mm/hour (0-20) H 01/31/25 06:26
Estimated Creat Clear 95 ml/min 02/04/25 07:13
Lactic Acid Cancelled 01/26/25 13:30
Total Bilirubin 0.5 mg/dl (0.2-1.3) 02/04/25 07:13
AST 21 U/L (14-36) 02/04/25 07:13
ALT 16 U/L (0-35) 02/04/25 07:13
Alkaline Phosphatase 75 U/L (38-126) 02/04/25 07:13
C-Reactive Protein 200.00 mg/L (0.0-10.00) H 01/31/25 06:27
Most recent labs reviewed.
Micro Results:
01/31/25 17:16 Blood Culture - Preliminary
Blood/Venous No Growth in 72 hours- Final report to follow
01/31/25 15:07 Blood Culture - Preliminary
Blood/Venous No Growth in 72 hours- Final report to follow
01/27/25 11:15 Blood Culture - Final
Blood/Venous Staph aureus MRSA
Gram Stain - Final
01/28/25 13:36 Blood Culture - Final
Blood/Venous No Growth - Final Report
01/26/25 09:22 Blood Culture - Final
Blood/Venous Staph aureus MRSA
Gram Stain - Final
01/26/25 09:22 Blood Culture - Final
Blood/Venous Staph aureus MRSA
Gram Stain - Final
01/26/25 13:50 Urine Culture - Final
Urine No Significant Growth
01/26/25 09:22 Influenza Types A & B (MAUREEN) - Final
Nasal Swab Negative for Influenza A & B, NAAT
Negative results must be combined with clinical observations
and patient history.
Nucleic Acid Amplification test (NAAT)performed on the
[employer] platform.
Imaging:
01/31/2025 MRI left ankle: severe osseous destructive changes and bone marrow signal alteration in the hindfoot. Primary consideration would include sequela of osteomyelitis versus very severe Charcot arthrosis. Please see full dictation for
additional detail.
01/30/2025 ECHO (TTE): normal ventricular size and systolic function. Trace mitral regurgitation. Mild tricuspid regurgitation. No pericardial effusion. No noted vegetations.
01/26/2025 x-ray left ankle: Bony destruction of the talar dome, sparing the distal talus. Findings very likely represents sequela of osteomyelitis, new since examination 2017. There is some bony loss involving the distal tibia and fibula, which is
also likely from osteomyelitis. Periosteal new bone formation involving the distal tibia and fibula, likely findings of chronic osteomyelitis.
[2025-02-04] MEDS: DAKIN'S SOLUTION 0.125% 1/4 STRENGTH TOPICAL ×2 (10:34→20:22)
[2025-02-04 11:00] VITALS: BP 137/58
--- NOTE | 2025-02-04 11:00 | PTCARENOTE ---
Reached out to Dr. Zeng with Vascular Surgery if she wanted to continue ORTHODONTIST ASSISTANT pump since order reached stop date and time. Dr. Zeng said she is fine with stopping it. Relayed info to Dr. Cook and Dr. Chen. Discontinued Dilaudid ORTHODONTIST ASSISTANT pump at
1100.
[2025-02-04 11:34] LABS: Glucose - Point of Care 183 mg/dl (70-99)
[2025-02-04 12:05] LABS: Nucleated Red Blood Cells % 0.2 %
[2025-02-04 14:55] VITALS: BP 133/56; PULSE 73; O2SAT 98
--- NOTE | 2025-02-04 14:59 | W.PN.UPDATE ---
Update Note
Progress Note Update
POD 2 L BKA
No complaints
Pain controlled
Dressing taken down - stump viable, no hematoma, incision CDI
Dressing replaced
Plan:
PT/OT
Nursing to change dressing daily
vascular surgery signs off
Follow up in clinic in 2-4 weeks
[2025-02-04 15:29] VITALS: BP 141/54
--- NOTE | 2025-02-04 15:29 | W.PN.HOSP.TC ---
Addendum entered and electronically signed by Sandy Cook MD 02/04/25 16:20:
I saw and evaluated the patient independently. I reviewed and discussed the resident�s note and agree with findings and plan as documented by Dr. Chen.
GENERAL: well developed, well nourished, obese female in no apparent distress
HEENT: NC/AT--no O2 requirements
HEART: regular rate and rhythm, +S1, +S2
LUNGS : clear to auscultation bilaterally
ABDOM: soft, nontender, nondistended, + bowel sounds
EXT: no cyanosis, clubbing, or edema--left BKA and right leg (knee) immobilizer
NEUROLOGIC: grossly intact
: quinones
Lt ankle osteomyelitis with MRSA bacteremia--due to unhealed wound since the left knee infection and hard mojica removal s/p left ankle ORIF --apprec ID--last positive blood culture 01/27/25--needs KENYON--daptomycin as per ID pending if vegetations
found on KENYON--apprec ID/vascular/cards/podiatry--WBC still increased--s/p left BKA 02/02/25
Elevated CPK--not rhabdomyolysis--trending to follow while on dapto
Fall secondary to weakness- Femur x-ray indicating slightly displaced femur fracture--apprec ortho--non surgical management--cont immobilizer- CT head negative, CT cervical spine negative- Podiatry ordered left ankle MRI to assess osteomyelitis VS.
Charcot foot, still pending
HLD- Continue statin--watch CPK on this too
Type 2 diabetes mellitus--restart glyburide, metformin- Sliding scale insulin- Diabetic diet
Essential Hypertension- Continue metoprolol
DVT Proph-- Lovenox
CODE STATUS-- Full code
Original Note:
Today's Communication/Plan
-
Pt tolerated food -NSS IV discontinued
Quinones catheter discontinued
chest -Xray -normal
Off nasal O2 3L
Bladder scan with straight cath ,ordered today
Discontinued Dilaudid CASHIER TUBE ROOM
started oxycodone 5mg Q4 for moderate pain PRN
started oxycodone 10mg Q4 for sever pain PRN
PT/OT evaluation
Assessment / Plan
Assessment / Plan
Impression:
74-year-old female with past medical history of left ankle ORIF last year complicated by infected hardware status post removal at [facility], hypertension, hyperlipidemia, type 2 diabetes, history of left thigh lesion s/p ultrasound guided
biopsy in 2019, p/w fever of 102, generalized weakness, and fall. No head injury.
A week and a half ago [employer]UCK CLE[employer], she developed wound of left ankle with redness and swelling.
02/03/2025: bowel movements, O2 3L, Quinones cath inserted,
02/04/2025: Off nasal O2,off NSS iv, Dilaudid CASHIER TUBE ROOM discontinued , oral oxycodone started for pain, quinones cath removed, bladder scan, chest x-ray was done today (NORMAL) as the pt required 3L oxygen since the surgery.
Assessment and plan:
#Lt ankle OM with MRSA bacteremia
-The cause of OM is likely related to wound infection due to unhealed wound since the left knee infection and hard mojica removal s/p left ankle ORIF
- ID consulted and following
-discontinued cefipime
-discontinued vancomycin 4 days
-Daptomycin 900 mg day 4
- Blood culture X1 01/26 positive for Staph aureus, MRSA
- Blood culture X1 01/26 positive for Staph aureus, MRSA
- Blood culture X1 from 01/27 gram positive cocci in clusters
- Blood culture X1 from 01/28 no growth in 48 hours
- Blood culture X2 from 01/31 no growth to date
- WBC 13.3-13.7-14.4-14.6--
-urine culture negative
-ID on board
-podiatry on board
-vascular surgeon on naples
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
- ID [facility] KENYON as out patient visit
- cardiology consulted , [facility] KENYON out pt visit to follow up with cardiology and if KENYON needed urgently at the hospital will reassess for inpatient KENYON
X-RAY of the left femur on 02/01/2025 showed: Longstem left hip arthroplasty with cerclage wires without evidence of hardware complication or periprosthetic fracture.
Xray of the Leg Tibia/fibula Left on 02/01/2025 showed Longstem left hip arthroplasty with cerclage wires without evidence of hardware complication or periprosthetic fracture.
Partially visualized left knee arthroplasty.
echocardiogram ordered today 01/30:
1. Normal left ventricular size and systolic function without regional wall motion abnormalities. Estimated left ventricular ejection fraction is 56% by Agee's method.
2. Normal right ventricular size and systolic function.
3. Trace mitral regurgitation.
4. Mild tricuspid regurgitation with estimated pulmonary artery systolic pressure of 39 mmHg.
5. No pericardial effusion.
6. Compared to prior echocardiogram from 2017, estimated pulmonary artery systolic pressure is higher on the study. Otherwise there is no significant changes.
#Elevated CK
likely related to daptomycine vs BKA
02/03 --183
02/04 --281
will monitor
#Fall secondary to weakness
- Femur x-ray indicating slightly displaced femur fracture
- Consulted orthopedics for right femur
- Consulted podiatry for left ankle/foot as suggested by orthopedics
- Knee immobilizer for right femur
- Pain management as needed
- CT head negative, CT cervical spine negative
- Podiatry ordered left ankle MRI to assess osteomyelitis VS. Charcot foot, still pending
- Urine culture negative
#HLD
- Continue statin
#Type 2 diabetes
- Holding glyburide, metformin
- Sliding scale insulin
- Diabetic diet
#Hypertension
- Continue metoprolol
Diet: Diabetic diet
DVT PPx: Lovenox
CODE STATUS: Full code
Anticipated Discharge: > 48 hours
Subjective/Interval History
-
Date of Service: February 04, 2025
No over night event. She is tolerating the food after the surgery. Her pain controlled with medication. She is off the oxygen today. Denied shortness of breath, chest pain. She had her Bowel movement yesterday.
Objective Data
-
Labs:
Laboratory Results
02/04/25
07:13
WBC 12.1 H
Hgb 8.1 L
Hct 25.6 L
Plt Count 462 H
Sodium 136
Potassium 4.2
Chloride 108 H
Carbon Dioxide 25
BUN 15
Creatinine 0.6
Glucose 159 H
Calcium 7.3 L
Total Bilirubin 0.5
AST 21
ALT 16
Alkaline Phosphatase 75
Vital Signs:
Vital Signs
Temp Pulse Resp BP Pulse Ox
99.1 F 65 16 137/58 97
02/04/25 11:00 02/04/25 11:00 02/04/25 11:00 02/04/25 11:00 02/04/25 11:00
I&O
02/03/25 02/04/25 02/05/25
06:59 06:59 06:59
Intake Total 770 / 770 1440 / 1440
Output Total 1175 / 1175 1000 / 1000
Balance -405 / -405 440 / 440
[2025-02-04 16:27] LABS: Glucose - Point of Care 165 mg/dl (70-99)
[2025-02-04] MEDS: CUBICIN 18 MG IV (16:44)
[2025-02-04] MEDS: GLUCOPHAGE 1000 MG PO (18:03)
[2025-02-04] MEDS: LOVENOX 40 MG SC (18:03)
[2025-02-04] MEDS: MICRONASE 5 MG PO (18:03)
[2025-02-04] MEDS: ROXICODONE 5 MG PO (20:24)
[2025-02-04 21:09] LABS: Glucose - Point of Care 156 mg/dl (70-99)
[2025-02-04 23:53] VITALS: BP 134/50
[2025-02-05 07:00] VITALS: BP 136/76
[2025-02-05 07:04] LABS: Hematocrit 25.4 % (37.0-47.0); Hemoglobin 8.0 g/dL (12.0-16.0); Mean Corp Hgb Conc. 31.5 g/dL (33.0-37.0); Mean Corpuscular Volume 79.6 fL (81.0-99.0); Nucleated Red Blood Cells % 0.2 %; Platelet Count 483 10^3/uL (130-400); Red Cell Dist. Width 17.5 % (11.5-14.5)
[2025-02-05 07:19] LABS: Glucose - Point of Care 108 mg/dl (70-99)
[2025-02-05 07:38] LABS: ALT (SGPT) 15 U/L (0-35); AST (SGOT) 19 U/L (14-36); Albumin 2.6 g/dl (3.5-5.0); Alkaline Phosphatase 76 U/L (38-126); Blood Urea Nitrogen 11 mg/dl (7-17); Calcium 7.6 mg/dl (8.4-10.2); Carbon Dioxide 26 mmol/L (22-30); Chloride 107 mmol/L (98-107); Estimated Creatinine Clearance 95 ml/min; Glucose 99 mg/dl (70-99); Potassium 4.1 mmol/L (3.5-5.1); Sodium 137 mmol/L (135-145); Total Protein 5.4 g/dl (6.3-8.2); eGFR > 60.00
[2025-02-05] MEDS: NOVOLOG FLEXPEN-LOW RESISTANCE SC ×2 (08:30→17:37)
[2025-02-05] MEDS: SENOKOT-S PO ×2 (08:30→20:53)
[2025-02-05] MEDS: COLACE PO ×2 (08:30→20:52)
[2025-02-05] MEDS: MIRALAX PO (08:30)
[2025-02-05] MEDS: FEOSOL 325 MG PO (08:31)
[2025-02-05] MEDS: VITAMIN D3 (cholecalciferol) 25 MCG PO (08:33)
[2025-02-05] MEDS: MICRONASE 5 MG PO (08:33)
[2025-02-05] MEDS: VISBIOME 1 CAP PO (08:33)
[2025-02-05] MEDS: TOPROL XL 25 MG PO (08:33)
[2025-02-05] MEDS: GLUCOPHAGE 1000 MG PO ×2 (09:41→18:22)
[2025-02-05] MEDS: ROXICODONE 5 MG PO (09:42)
--- NOTE | 2025-02-05 09:56 | W.PN.HOSP.TC ---
Addendum entered and electronically signed by Sandy Cook MD 02/05/25 15:26:
I saw and evaluated the patient independently. I reviewed and discussed the resident�s note and agree with findings and plan as documented by Dr. Chen.
GENERAL: well developed, well nourished, obese female in no apparent distress
HEENT: NC/AT--no O2 requirements
HEART: regular rate and rhythm, +S1, +S2
LUNGS : clear to auscultation bilaterally
ABDOM: soft, nontender, nondistended, + bowel sounds
EXT: no cyanosis, clubbing, or edema--left BKA and right leg (knee) immobilizer
NEUROLOGIC: grossly intact
: quinones out
Lt ankle osteomyelitis with MRSA bacteremia--due to unhealed wound since the left knee infection and hard mojica removal s/p left ankle ORIF --apprec ID--last positive blood culture 01/27/25--needs KENYON, ordered as outpt (would discuss with cards re:
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
Elevated CPK--not rhabdomyolysis--trending to follow while on dapto
Fall secondary to weakness- Femur x-ray indicating slightly displaced right femur fracture--apprec ortho--non surgical management--cont immobilizer- CT head negative, CT cervical spine negative
HLD- Continue statin--watch CPK on this too
Type 2 diabetes mellitus--restart glyburide, metformin- Sliding scale insulin- Diabetic diet
Essential Hypertension- Continue metoprolol
DVT Proph-- Lovenox
CODE STATUS-- Full code
Original Note:
Today's Communication/Plan
-
PT/OT evaluation today
appreciate bilingual case manager following her Rehab which was recommended by PT placement and no update for her placement as of today
Given the pt recent BKA and right leg immobilization and rehab placement plan to to KENYON as an inpatient and per ID recc to determine the antibiotics period 2 weeks if KENYON negative for vegetation vs 6 weeks if it is positive for vegitation.
Assessment / Plan
Assessment / Plan
Impression:
74-year-old female with past medical history of left ankle ORIF last year complicated by infected hardware status post removal at [facility], hypertension, hyperlipidemia, type 2 diabetes, history of left thigh lesion s/p ultrasound guided
biopsy in 2019, p/w fever of 102, generalized weakness, and fall. No head injury.
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
02/03/2025: bowel movements, O2 3L, Quinones cath inserted,
02/04/2025: Off nasal O2,off NSS iv, Dilaudid COMPLIANCE ASSOCIATE discontinued , oral oxycodone started for pain, quinones cath removed, bladder scan, chest x-ray was done today (NORMAL) as the pt required 3L oxygen since the surgery.
02/05/2025: remained on room air AFVSS, normal urination without Quinones cath, pain controlled with oral pain med
Assessment and plan:
#Lt ankle OM with MRSA bacteremia
-The cause of OM is likely related to wound infection due to unhealed wound since the left knee infection and hard mojica removal s/p left ankle ORIF
- ID consulted and following
-discontinued cefipime
-discontinued vancomycin 4 days
-Daptomycin 900 mg day 6
- Blood culture X1 01/26 positive for Staph aureus, MRSA
- Blood culture X1 01/26 positive for Staph aureus, MRSA
- Blood culture X1 from 01/27 gram positive cocci in clusters
- Blood culture X1 from 01/28 no growth in 48 hours
- Blood culture X2 from 01/31 no growth to date
- WBC 13.3-13.7-14.4-14.6--12.1--11.7
-urine culture negative
-ID on board
-podiatry on board
-vascular surgeon on bard
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
- ID [facility] KENYON as out patient visit
- cardiology consulted , [facility] out pt visit to follow up with cardiology and if KENYON needed urgently at the hospital will reassess for inpatient KENYON
X-RAY of the left femur on 02/01/2025 showed: Longstem left hip arthroplasty with cerclage wires without evidence of hardware complication or periprosthetic fracture.
Xray of the Leg Tibia/fibula Left on 02/01/2025 showed Longstem left hip arthroplasty with cerclage wires without evidence of hardware complication or periprosthetic fracture.
Partially visualized left knee arthroplasty.
echocardiogram ordered today 01/30:
1. Normal left ventricular size and systolic function without regional wall motion abnormalities. Estimated left ventricular ejection fraction is 56% by Agee's method.
2. Normal right ventricular size and systolic function.
3. Trace mitral regurgitation.
4. Mild tricuspid regurgitation with estimated pulmonary artery systolic pressure of 39 mmHg.
5. No pericardial effusion.
6. Compared to prior echocardiogram from 2017, estimated pulmonary artery systolic pressure is higher on the study. Otherwise there is no significant changes.
#Elevated CK
likely related to daptomycine vs BKA
02/03 --183
02/04 --281
02/04--204
will monitor
#Fall secondary to weakness
- Femur x-ray indicating slightly displaced femur fracture
- Consulted orthopedics for right femur
- Consulted podiatry for left ankle/foot as suggested by orthopedics
- Knee immobilizer for right femur
- Pain management as needed
- CT head negative, CT cervical spine negative
- Podiatry ordered left ankle MRI to assess osteomyelitis VS. Charcot foot, still pending
- Urine culture negative
#HLD
- Continue statin
#Type 2 diabetes
- Holding glyburide, metformin
- Sliding scale insulin
- Diabetic diet
#Hypertension
- Continue metoprolol
Diet: Diabetic diet
DVT PPx: Lovenox
CODE STATUS: Full code
Anticipated Discharge: > 48 hours
Subjective/Interval History
-
Date of Service: February 05, 2025
No overnight event. She tolerated urination without Quinones catheter, Her pain has been controlled with oral med after she was off the COMPLIANCE ASSOCIATE Dilaudid yesterday. She had the total of one tablet 5 mg oxycodone yesterday. She denied chest pain , shortness
of breath, abd pain, no hematuria . Had normal bowel movement 2 days ago.
Objective Data
-
Labs:
Laboratory Results
02/05/25
06:13
WBC 11.7 H
Hgb 8.0 L
Hct 25.4 L
Plt Count 483 H
Sodium 137
Potassium 4.1
Chloride 107
Carbon Dioxide 26
BUN 11
Creatinine 0.6
Glucose 99
Calcium 7.6 L
Total Bilirubin 0.5
AST 19
ALT 15
Alkaline Phosphatase 76
Vital Signs:
Vital Signs
Temp Pulse Resp BP Pulse Ox
99.3 F 72 16 136/76 95
02/05/25 07:00 02/05/25 08:33 02/05/25 07:00 02/05/25 08:33 02/05/25 07:00
I&O
02/04/25 02/05/25 02/06/25
06:59 06:59 06:59
Intake Total 1440 / 1440 240 / 240
Output Total 1000 / 1000 650 / 650
Balance 440 / 440 -410 / -410
Review of Systems
-
History Source: Patient
Constitutional: Reports No Symptoms
EENT: Reports No Symptoms Reported
Respiratory: Reports No Symptoms
Cardiac: Reports No Symptoms
Genitourinary: Reports No Symptoms
Musculoskeletal: Reports Other (Right lower extremity pain, 7 out of 10)
Skin: Reports No Symptoms
Neuro: Reports No Symptoms
Endocrine: Reports No Symptoms
Hematologic / Lymphatic: Reports No Symptoms
Allergy / Immunology: Reports No Symptoms
Psych: Reports Sad
Physical Exam
-
General: Well Developed, Well Nourished and No Apparent Distress
HEENT: Normocephalic and Atraumatic
Respiratory: Clear to Auscultation
Cardiac: Regular Rhythm and S1/S2
GI: Soft, Nontender and Nondistended
Musculoskeletal: Other (bka)
Skin: Warm, Dry and Rash
Neuro: Awake, Alert and Oriented
Psych: Calm
[2025-02-05] MEDS: DAKIN'S SOLUTION 0.125% 1/4 STRENGTH TOPICAL ×2 (09:58→20:52)
[2025-02-05 11:30] VITALS: BP 138/57; PULSE 67; O2SAT 95
[2025-02-05 11:55] LABS: Glucose - Point of Care 152 mg/dl (70-99)
[2025-02-05] MEDS: NOVOLOG FLEXPEN-LOW RESISTANCE 1 UNITS SC (12:34)
[2025-02-05] MEDS: DESENEX/MITRAZOL/ZEASORB 1 APPLIC TOPICAL ×2 (12:35→20:52)
--- NOTE | 2025-02-05 12:35 | W.PN.ID1 ---
Date of Service
Date of Service: February 05, 2025
Today's Communication
Trend CK
Assessment / Plan
MRSA bacteremia
Leukocytosis
Fever
Left lower extremity cellulitis
Right knee pain/swelling
S/p fall
Right knee displaced fracture (medial femoral condyle)
Nonsalvageable severe osseous destructive changes in hindfoot osteo
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
Prior to admission:
HLD
DM
Bilateral cataracts
Hx left ankle osteomyelitis
Recommendations:
MRSA bacteremia
- last positive culture 01/27/25
Blood cx's neg from 01/28 x 1, 01/31 x 2
TTE no gross vegetation
Leukocytosis - trending down
Severe osseous destructive changes in hindfoot osteo s/p LLE BKA 02/02/2025 POD #1
-For KENYON outpatient
- Continue Daptomycin for at least 2 weeks or longer (6 weeks) if outpatient KENYON + vegetation.
- Elevated CK post-op. 183->281->204
Continue to trend CK. DC daptomycin if CK>5x normal + symptoms of myopathy, or CK >10x without sxs.
Chief Complaint
-: Bacteremia
Subjective / Review of Systems
No new muscle pain.
Vital Signs / Physical Exam
Vital Signs
Vital Signs
Temp Pulse Resp BP Pulse Ox
99.3 F 72 16 136/76 95
02/05/25 07:00 02/05/25 08:33 02/05/25 07:00 02/05/25 08:33 02/05/25 07:00
Physical Exam
Constitutional: No Acute Distress
Cardiovascular: Regular Rate and S1/S2
Pulmonary: Clear
Gastrointestinal: Soft, Non Tender, Non Distended and Normal Bowel Sounds
Extremities: Other (LLE in bandages ); Negative Edema
Wound: Other (Left BKA dressing dry. )
Neurological: AO x 3
Objective Data
Lab Data
Lab Results
02/05/25 06:13
02/05/25 06:13
ESR 99 mm/hour (0-20) H 01/31/25 06:26
Estimated Creat Clear 95 ml/min 02/05/25 06:13
Lactic Acid Cancelled 01/26/25 13:30
Total Bilirubin 0.5 mg/dl (0.2-1.3) 02/05/25 06:13
AST 19 U/L (14-36) 02/05/25 06:13
ALT 15 U/L (0-35) 02/05/25 06:13
Alkaline Phosphatase 76 U/L (38-126) 02/05/25 06:13
C-Reactive Protein 200.00 mg/L (0.0-10.00) H 01/31/25 06:27
Most recent labs reviewed.
Micro Results:
01/31/25 17:16 Blood Culture - Preliminary
Blood/Venous No Growth in 4 days- Final report to follow
01/31/25 15:07 Blood Culture - Preliminary
Blood/Venous No Growth in 4 days- Final report to follow
01/27/25 11:15 Blood Culture - Final
Blood/Venous Staph aureus MRSA
Gram Stain - Final
01/28/25 13:36 Blood Culture - Final
Blood/Venous No Growth - Final Report
01/26/25 09:22 Blood Culture - Final
Blood/Venous Staph aureus MRSA
Gram Stain - Final
01/26/25 09:22 Blood Culture - Final
Blood/Venous Staph aureus MRSA
Gram Stain - Final
01/26/25 13:50 Urine Culture - Final
Urine No Significant Growth
01/26/25 09:22 Influenza Types A & B (MAUREEN) - Final
Nasal Swab Negative for Influenza A & B, NAAT
Negative results must be combined with clinical observations
and patient history.
Nucleic Acid Amplification test (NAAT)performed on the
Eko platform.
Imaging:
01/31/2025 MRI left ankle: severe osseous destructive changes and bone marrow signal alteration in the hindfoot. Primary consideration would include sequela of osteomyelitis versus very severe Charcot arthrosis. Please see full dictation for
additional detail.
01/30/2025 ECHO (TTE): normal ventricular size and systolic function. Trace mitral regurgitation. Mild tricuspid regurgitation. No pericardial effusion. No noted vegetations.
01/26/2025 x-ray left ankle: Bony destruction of the talar dome, sparing the distal talus. Findings very likely represents sequela of osteomyelitis, new since examination 2017. There is some bony loss involving the distal tibia and fibula, which is
also likely from osteomyelitis. Periosteal new bone formation involving the distal tibia and fibula, likely findings of chronic osteomyelitis.
[2025-02-05 13:16] LABS: Magnesium 2.3 mg/dl (1.6-2.3)
[2025-02-05 15:00] VITALS: BP 134/60
[2025-02-05] MEDS: CUBICIN 18 MG IV (17:29)
[2025-02-05 17:33] LABS: Glucose - Point of Care 65 mg/dl (70-99)
[2025-02-05] MEDS: MICRONASE PO (17:42)
[2025-02-05] MEDS: LOVENOX 40 MG SC (17:42)
[2025-02-05 17:50] LABS: Glucose - Point of Care 85 mg/dl (70-99)
--- NOTE | 2025-02-05 17:51 | PTCARENOTE ---
Pt's blood sugar was 65 at 1732, asymptomatic. She drank 4 oz juice and rechecked blood sugar in 15 minutes. Repeat blood sugar was 85. Meal tray ordered. Dr. Cook/Dr. Chen made aware and indicated to hold Glyburide 5mg this evening and
give Metformin 1000mg as ordered. Updated pt on plan. Will check blood sugar again in 2 hrs per protocol.
[2025-02-05 21:10] LABS: Glucose - Point of Care 77 mg/dl (70-99)
[2025-02-05 23:48] VITALS: BP 136/66
[2025-02-06] MEDS: ROXICODONE 5 MG PO ×4 (01:04→22:25)
[2025-02-06 03:36] LABS: Glucose - Point of Care 107 mg/dl (70-99)
[2025-02-06 07:25] VITALS: BP 133/64
[2025-02-06] MEDS: VITAMIN D3 (cholecalciferol) 25 MCG PO (08:53)
[2025-02-06] MEDS: VISBIOME 1 CAP PO (08:53)
[2025-02-06] MEDS: FEOSOL 325 MG PO (08:53)
[2025-02-06] MEDS: GLUCOPHAGE 1000 MG PO ×2 (08:53→16:53)
[2025-02-06] MEDS: COLACE PO ×2 (08:54→20:29)
[2025-02-06] MEDS: DAKIN'S SOLUTION 0.125% 1/4 STRENGTH TOPICAL ×2 (08:55→20:30)
[2025-02-06] MEDS: NOVOLOG FLEXPEN-LOW RESISTANCE SC ×2 (08:55→16:52)
[2025-02-06 08:56] LABS: Glucose - Point of Care 134 mg/dl (70-99)
[2025-02-06] MEDS: TOPROL XL 25 MG PO (08:56)
[2025-02-06] MEDS: MIRALAX PO (08:56)
[2025-02-06] MEDS: SENOKOT-S PO ×2 (08:56→20:30)
[2025-02-06] MEDS: DESENEX/MITRAZOL/ZEASORB 1 APPLIC TOPICAL ×2 (09:00→20:41)
[2025-02-06 09:41] LABS: Hematocrit 29.1 % (37.0-47.0); Hemoglobin 9.1 g/dL (12.0-16.0); Mean Corp Hgb Conc. 31.3 g/dL (33.0-37.0); Mean Corpuscular Volume 81.3 fL (81.0-99.0); Nucleated Red Blood Cells % 0 %; Platelet Count 555 10^3/uL (130-400); Red Cell Dist. Width 17.7 % (11.5-14.5)
--- NOTE | 2025-02-06 09:41 | W.PN.HOSP.TC ---
Today's Communication/Plan
-
continue Daptomycin 900 mg day 7
Appreciate cardiology - planned for KENYON tomorrow
NPO after mid night today
Assessment / Plan
Assessment / Plan
Impression:
74-year-old female with past medical history of left ankle ORIF last year complicated by infected hardware status post removal at [facility], hypertension, hyperlipidemia, type 2 diabetes, history of left thigh lesion s/p ultrasound guided
biopsy in 2019, p/w fever of 102, generalized weakness, and fall. No head injury.
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
02/03/2025: bowel movements, O2 3L, Quinones cath inserted,
02/04/2025: Off nasal O2,off NSS iv, Dilaudid HEALTHCARE RISK CONTROL CONSULTANT discontinued , oral oxycodone started for pain, quinones cath removed, bladder scan, chest x-ray was done today (NORMAL) as the pt required 3L oxygen since the surgery.
02/05/2025: remained on room air AFVSS, normal urination without Quinones cath, pain controlled with oral pain med
02/06/2025 Glyburide stopped due to hypoglycemia
Assessment and plan:
#Lt ankle OM with MRSA bacteremia
-The cause of OM is likely related to wound infection due to unhealed wound since the left knee infection and hard mojica removal s/p left ankle ORIF
- ID consulted and following
-discontinued cefipime
-discontinued vancomycin 4 days
-Daptomycin 900 mg day 7
- Blood culture X1 01/26 positive for Staph aureus, MRSA
- Blood culture X1 01/26 positive for Staph aureus, MRSA
- Blood culture X1 from 01/27 gram positive cocci in clusters
- Blood culture X1 from 01/28 no growth in 48 hours
- Blood culture X2 from 01/31 no growth to date
- WBC 13.3-13.7-14.4-14.6--12.1--11.7--12.6
- Hb stable 9.1
-urine culture negative
-ID on board
-podiatry on board
-vascular surgeon on [place]
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
- ID [facility] KENYON to rule out endocarditis
- cardiology consulted for KENYON as an inpatient - scheduled tomorrow 02/07/2025
Echo 01/30/2025: EF 56%, trace MR, mild TR, estimated PAP 39 mmHg
KENYON 02/07/2025: Study pending
#Elevated CK
likely related to daptomycine vs BKA
02/03 --183
02/04 --281
02/04--204
will monitor
#Fall secondary to weakness
- Femur x-ray indicating slightly displaced femur fracture
- Consulted orthopedics for right femur
- Consulted podiatry for left ankle/foot as suggested by orthopedics
- Knee immobilizer for right femur
- Pain management as needed
- CT head negative, CT cervical spine negative
- Podiatry ordered left ankle MRI to assess osteomyelitis VS. Charcot foot, still pending
- Urine culture negative
#HLD
- Continue statin
#Type 2 diabetes
- Holding glyburide due to hypoglycemia
- continue metformin
- Diabetic diet
#Hypertension
- Continue metoprolol
Diet: Diabetic diet
DVT PPx: Lovenox
CODE STATUS: Full code
Anticipated Discharge: > 48 hours
Subjective/Interval History
-
Date of Service: February 06, 2025
She feels well today, had leg pain yesterday and she took total of two Oxycodone 5mgs tablets yesterday , she felt she needed more but she did not ask for. She denies chest pain, shortness of breath,or abdominal pain.
Objective Data
-
Labs:
Laboratory Results
02/06/25
08:10
WBC 12.6 H
Hgb 9.1 L
Hct 29.1 L
Plt Count 555 H
Vital Signs:
Vital Signs
Temp Pulse Resp BP Pulse Ox
98.5 F 69 18 133/64 96
02/06/25 07:25 02/06/25 08:56 02/06/25 07:25 02/06/25 08:56 02/06/25 07:25
I&O
02/05/25 02/06/25 02/07/25
06:59 06:59 06:59
Intake Total 240 / 240 1320 / 1320
Output Total 650 / 650
Balance -410 / -410 1320 / 1320
Review of Systems
-
History Source: Patient
Constitutional: Reports No Symptoms
EENT: Reports No Symptoms Reported
Respiratory: Reports No Symptoms
Cardiac: Reports No Symptoms
Genitourinary: Reports No Symptoms
Musculoskeletal: Reports Other (Right lower extremity pain, 7 out of 10)
Skin: Reports No Symptoms
Neuro: Reports No Symptoms
Endocrine: Reports No Symptoms
Hematologic / Lymphatic: Reports No Symptoms
Allergy / Immunology: Reports No Symptoms
Psych: Reports Sad
Physical Exam
-
General: Well Developed, Well Nourished and No Apparent Distress
HEENT: Normocephalic and Atraumatic
Respiratory: Clear to Auscultation
Cardiac: Regular Rhythm and S1/S2
GI: Soft, Nontender and Nondistended
Musculoskeletal: Other (bka)
Skin: Warm, Dry and Rash
Neuro: Awake, Alert and Oriented
Psych: Calm
[2025-02-06 11:57] LABS: Glucose - Point of Care 181 mg/dl (70-99)
--- NOTE | 2025-02-06 12:03 | CON.CAR ---
Addendum entered and electronically signed by Ajay Polanco MD 02/06/25 13:25:
I saw and examined the patient.
The RECORD PRESSMAN or PA's note was reviewed and I agree with the note.
Comment: General: Well developed, well nourished in NAD.
Neck: Supple, no JVD, HJR, carotids +2 B/L, no bruits bilaterally.
Heart: Non displaced PMI, RRR, no murmurs, No S3, S4, no rubs.
Lungs: Scattered rhonchi
Extremities: No clubbing, cyanosis or edema bilaterally.
Neuro: Grossly nonfocal, awake, alert and oriented x3.
Sarah
History of hypertension, diabetes, hyperlipidemia, infected left ankle hardware. She presented with fevers and, weakness, and falls. She noted to have left ankle cellulitis as well as right knee fracture. MRIs confirmed left ankle osteomyelitis
and she underwent left BKA. She has positive blood cultures for MRSA. Cardiology is consulted for KENYON to exclude endocarditis.
Explained risk benefits of KENYON in detail and she agrees to proceed. This will be performed on Wednesday 02/07
Original Note:
Consultation
Consultation Request
Date/Time Consultation Requested: 02/06/2025
Date/Time Consultation Performed: 02/06/2025
Requesting Provider: Dr. Lackey
Performing Provider: Holley Singh PA-C for Dr. Polanco
Reason for Consultation: Bacteremia, KENYON
Medical History
-
History of Present Illness:
HPI: Sarah is a 74 year old female with PMH of HTN, HLD, DM2, and infected L ankle hardware who presented to [facility] for evaluated of fevers, weakness and falls. She was noted to have L ankle cellulitis, as well as R knee fracture. MRI later in
admission confirmed L ankle osteomyelitis and she underwent L BKA 02/02. Initial blood cultures + for MRSA, however subsequent blood cultures have been negative. She continues on daptomycin for antibiotics, however KENYON has been requested to
determine duration of treatment. She had TTE on 01/30 which showed no evidence of vegetation. No current cardiac complaints.
PMH:
HTN
HLD
DM2
h/o L ankle fracture w/ infected hardware 11/2023
Past Medical History
Past Medical History: Other (In HPI)
Past Surgical History: Orthopedic (L ankle ORIF w/ subsequent hardware removal, b/l TKA, b/l MELBA)
Social History
Tobacco: Non-Smoker
Alcohol: None
Drug: None
Personal: Single
Living: Alone
Employment: Retired
Family History
Family History: Reviewed & Not Pertinent
Allergies / Home Medications
Allergy/AdvReac Type Severity Reaction Status Date / Time
adhesive tape Allergy SKIN Verified 01/26/25 16:17
BLISTERS
�Medication �Instructions �Recorded �Confirmed �Type
glyburide 2.5 mg-metformin 500 mg 2 tab PO BID 05/24/08 01/26/25 History
tablet
atorvastatin 10 mg tablet 10 mg PO QPM 07/31/16 01/26/25 History
Lactobac no.2-Bifidobac no.1-S. 1 cap PO DAILY 01/26/25 01/26/25 History
thermo 112.5 billion cell capsule
(Visbiome)
acetaminophen 325 mg tablet 650 mg PO Q4H PRN MILD PAIN 01/26/25 01/26/25 History
(Tylenol)
cholecalciferol (vitamin D3) 25 25 mcg PO DAILY 01/26/25 01/26/25 History
mcg (1,000 unit) tablet (Vitamin
D3)
cranberry fruit 450 mg tablet 450 mg PO DAILY 01/26/25 01/26/25 History
(cranberry)
ferrous sulfate 325 mg (65 mg 325 mg PO DAILY 01/26/25 01/26/25 History
iron) tablet
metoprolol succinate 25 mg 25 mg PO DAILY 01/26/25 01/26/25 History
tablet,extended release 24 hr
Review of Systems
-
History Source: Patient
All other systems: Negative unless noted
Physical Exam
Vital Signs
Temp Pulse Resp BP Pulse Ox
98.5 F 69 18 133/64 96
02/06/25 07:25 02/06/25 08:56 02/06/25 07:25 02/06/25 08:56 02/06/25 09:00
Lab Results
02/06/25 08:10
02/05/25 06:13
Physical Exam
General: Well Developed, Well Nourished and No Apparent Distress
HEENT: Normocephalic, Anicteric and Moist Mucous Membranes
Respiratory: Clear and Non Labored Respirations
Cardiac: S1/S2 and Regular Rhythm
Musculoskeletal: No Clubbing, No Cyanosis, No Edema and Other (L BKA)
Skin: Warm and Dry
Neuro: AO x 3 and Nonfocal/Grossly Intact
Psych: Calm
Impression / Plan
-
PCP: Dr. Burdick
Woodworking Machine Operator: Previously seen by Dr. Allen
Impression:
Presented with falls, weakness, fever
L ankle osteomyelitis
s/p L BKA 02/02/2025
R knee fracture
MRSA bacteremia
HTN
HLD
DM2
h/o L ankle fracture w/ infected hardware 11/2023
Echo 08/05/2016: EF 55 to 60%, mild TR, estimated PAP 28 to 33 mmHg
KENYON 08/12/2016: EF 60%, no evidence of endocarditis
Echo 01/30/2025: EF 56%, trace MR, mild TR, estimated PAP 39 mmHg
KENYON 02/07/2025: Study pending
Plan:
-Presented with weakness, fevers, and falls. Found to have left ankle osteomyelitis and is s/p L BKA 02/02/2025.
-Blood cultures positive for MRSA on 01/27, subsequent blood cultures have been negative.
-Continues on antibiotics with daptomycin per ID recommendations.
-ID recommending KENYON to evaluate for possible endocarditis and help determine length of antibiotic therapy.
-She has no current cardiac complaints.
-TTE 01/30/2025 with preserved EF, no evidence of endocarditis
-Will arrange KENYON in AM. NPO after midnight.
-Continue Toprol 25 mg daily. BP stable.
-Admission EKG reviewed, sinus tachycardia with heart rate 104 bpm.
HPI: Sarah is a 74 year old female with PMH of HTN, HLD, DM2, and infected L ankle hardware who presented to [facility] for evaluated of fevers, weakness and falls. She was noted to have L ankle cellulitis, as well as R knee fracture. MRI later in
admission confirmed L ankle osteomyelitis and she underwent L BKA 02/02. Initial blood cultures + for MRSA, however subsequent blood cultures have been negative. She continues on daptomycin for antibiotics, however KENYON has been requested to
determine duration of treatment. She had TTE on 01/30 which showed no evidence of vegetation. No current cardiac complaints.
Data Reviewed
-
EKG: Tracing Personally Visualized and interpreted
Radiology: Report Reviewed by me
MRI: Report Reviewed by me
Labs: Labs Reviewed by me
Old Records: Reviewed
[2025-02-06] MEDS: NOVOLOG FLEXPEN-LOW RESISTANCE 1 UNITS SC (12:33)
--- NOTE | 2025-02-06 14:32 | W.PN.ID1 ---
Date of Service
Date of Service: February 06, 2025
Today's Communication
Continue antibiotics.
Assessment / Plan
MRSA bacteremia
Leukocytosis
Fever
Left lower extremity cellulitis
Right knee pain/swelling
S/p fall
Right knee displaced fracture (medial femoral condyle)
Nonsalvageable severe osseous destructive changes in hindfoot osteo
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
Prior to admission:
HLD
DM
Bilateral cataracts
Hx left ankle osteomyelitis
Recommendations:
MRSA bacteremia
- last positive culture 01/27/25
Blood cx's neg from 01/28 x 1, 01/31 x 2
TTE no gross vegetation
Leukocytosis - trending down
Severe osseous destructive changes in hindfoot osteo s/p LLE BKA 02/02/2025 POD #4
- Discussed with Hospitalist; outpatient KENYON may be difficult. Cardiology has been consulted, and patient for possible KENYON tomorrow.
- Continue Daptomycin for at least 2 weeks or longer (6 weeks) if outpatient KENYON + vegetation.
- Elevated CK post-op. 183->281->204
- Continue to trend CK. DC daptomycin if CK>5x normal + symptoms of myopathy, or CK >10x without sxs.
����������������������������������������������������������
Chief Complaint
-: Bacteremia
Subjective / Review of Systems
Patient seen and examined. Reports discomfort in the left leg, but pain is overall controlled.
Review of Systems: No Fever and No Chills
Vital Signs / Physical Exam
Vital Signs
Vital Signs
Temp Pulse Resp BP Pulse Ox
98.5 F 69 18 133/64 96
02/06/25 07:25 02/06/25 08:56 02/06/25 07:25 02/06/25 08:56 02/06/25 09:00
Physical Exam
Constitutional: No Acute Distress
Cardiovascular: Regular Rate and S1/S2
Pulmonary: Clear
Gastrointestinal: Soft, Non Tender, Non Distended and Normal Bowel Sounds
Extremities: Other (LLE in bandages ); Negative Edema
Wound: Other (Left BKA dressing dry. )
Neurological: AO x 3
Objective Data
Lab Data
Lab Results
02/06/25 08:10
02/05/25 06:13
ESR 99 mm/hour (0-20) H 01/31/25 06:26
Estimated Creat Clear 95 ml/min 02/05/25 06:13
Lactic Acid Cancelled 01/26/25 13:30
Total Bilirubin 0.5 mg/dl (0.2-1.3) 02/05/25 06:13
AST 19 U/L (14-36) 02/05/25 06:13
ALT 15 U/L (0-35) 02/05/25 06:13
Alkaline Phosphatase 76 U/L (38-126) 02/05/25 06:13
C-Reactive Protein 200.00 mg/L (0.0-10.00) H 01/31/25 06:27
Most recent labs reviewed.
Micro Results:
01/31/25 17:16 Blood Culture - Final
Blood/Venous No Growth - Final Report
01/31/25 15:07 Blood Culture - Final
Blood/Venous No Growth - Final Report
01/27/25 11:15 Blood Culture - Final
Blood/Venous Staph aureus MRSA
Gram Stain - Final
01/28/25 13:36 Blood Culture - Final
Blood/Venous No Growth - Final Report
01/26/25 09:22 Blood Culture - Final
Blood/Venous Staph aureus MRSA
Gram Stain - Final
01/26/25 09:22 Blood Culture - Final
Blood/Venous Staph aureus MRSA
Gram Stain - Final
01/26/25 13:50 Urine Culture - Final
Urine No Significant Growth
01/26/25 09:22 Influenza Types A & B (MAUREEN) - Final
Nasal Swab Negative for Influenza A & B, NAAT
Negative results must be combined with clinical observations
and patient history.
Nucleic Acid Amplification test (NAAT)performed on the
[employer] platform.
Imaging:
01/31/2025 MRI left ankle: severe osseous destructive changes and bone marrow signal alteration in the hindfoot. Primary consideration would include sequela of osteomyelitis versus very severe Charcot arthrosis. Please see full dictation for
additional detail.
01/30/2025 ECHO (TTE): normal ventricular size and systolic function. Trace mitral regurgitation. Mild tricuspid regurgitation. No pericardial effusion. No noted vegetations.
01/26/2025 x-ray left ankle: Bony destruction of the talar dome, sparing the distal talus. Findings very likely represents sequela of osteomyelitis, new since examination 2017. There is some bony loss involving the distal tibia and fibula, which is
also likely from osteomyelitis. Periosteal new bone formation involving the distal tibia and fibula, likely findings of chronic osteomyelitis.
[2025-02-06 15:41] VITALS: BP 113/47
[2025-02-06 16:40] LABS: Glucose - Point of Care 138 mg/dl (70-99)
[2025-02-06] MEDS: CUBICIN 18 MG IV (16:53)
[2025-02-06] MEDS: LOVENOX 40 MG SC (17:58)
[2025-02-06 21:16] LABS: Glucose - Point of Care 157 mg/dl (70-99)
[2025-02-06 23:48] VITALS: BP 129/59
[2025-02-07 06:21] LABS: Glucose - Point of Care 166 mg/dl (70-99)
[2025-02-07] MEDS: NOVOLOG FLEXPEN-LOW RESISTANCE 1 UNITS SC ×3 (06:30→17:05)
[2025-02-07] MEDS: ROXICODONE 5 MG PO ×2 (06:30→23:03)
[2025-02-07 07:00] VITALS: BP 133/56
[2025-02-07 07:11] LABS: Hematocrit 27.1 % (37.0-47.0); Hemoglobin 8.7 g/dL (12.0-16.0); Mean Corp Hgb Conc. 32.1 g/dL (33.0-37.0); Mean Corpuscular Volume 80.2 fL (81.0-99.0); Nucleated Red Blood Cells % 0 %; Platelet Count 570 10^3/uL (130-400); Red Cell Dist. Width 17.5 % (11.5-14.5)
--- NOTE | 2025-02-07 07:15 | W.PN.HOSP.TC ---
Today's Communication/Plan
-
KENYON done today , No significant valvular disease. No obvious endocarditis.
Continue daptomycin IV
per flow manager, no update regarding SNF placement yet
Assessment / Plan
Assessment / Plan
Impression:
74-year-old female with past medical history of left ankle ORIF last year complicated by infected hardware status post removal at [facility], hypertension, hyperlipidemia, type 2 diabetes, history of left thigh lesion s/p ultrasound guided
biopsy in 2019, p/w fever of 102, generalized weakness, and fall. No head injury.
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
02/03/2025: bowel movements, O2 3L, Quinones cath inserted,
02/04/2025: Off nasal O2,off NSS iv, Dilaudid CATALOGUE AND SPECIAL PRODUCTS MANAGER discontinued , oral oxycodone started for pain, quinones cath removed, bladder scan, chest x-ray was done today (NORMAL) as the pt required 3L oxygen since the surgery.
02/05/2025: remained on room air AFVSS, normal urination without Quinones cath, pain controlled with oral pain med
02/06/2025 Glyburide stopped due to hypoglycemia
Assessment and plan:
#Lt ankle OM with MRSA bacteremia
-The cause of OM is likely related to wound infection due to unhealed wound since the left knee infection and hard mojica removal s/p left ankle ORIF
- ID consulted and following
-discontinued cefipime
-discontinued vancomycin 4 days
-Daptomycin 900 mg day 8
- Blood culture X1 01/26 positive for Staph aureus, MRSA
- Blood culture X1 01/26 positive for Staph aureus, MRSA
- Blood culture X1 from 01/27 gram positive cocci in clusters
- Blood culture X1 from 01/28 no growth in 48 hours
- Blood culture X2 from 01/31 no growth to date
- WBC 13.3-13.7-14.4-14.6--12.1--11.7--12.6--16.8
- Hb stable 9.1
-urine culture negative
-ID on board
-podiatry on board
-vascular surgeon on bard
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
- ID [facility] KENYON to rule out endocarditis
- cardiology consulted for KENYON as an inpatient - scheduled tomorrow 02/07/2025
Echo 01/30/2025: EF 56%, trace MR, mild TR, estimated PAP 39 mmHg
KENYON 02/07/2025: EF 55 to 60%, normal BiV size and function without WMA, no significant valve disease, no obvious endocarditis
#Elevated CK
likely related to daptomycine vs BKA
02/03 --183
02/04 --281
02/04--204
02/07--67
will monitor
#Fall secondary to weakness
- Femur x-ray indicating slightly displaced femur fracture
- Consulted orthopedics for right femur
- Consulted podiatry for left ankle/foot as suggested by orthopedics
- Knee immobilizer for right femur
- Pain management as needed
- CT head negative, CT cervical spine negative
- Podiatry ordered left ankle MRI to assess osteomyelitis VS. Charcot foot, still pending
- Urine culture negative
#HLD
- Continue statin
#Type 2 diabetes
- Holding glyburide due to hypoglycemia
- continue metformin
- Diabetic diet
#Hypertension
- Continue metoprolol
Diet: Diabetic diet
DVT PPx: Lovenox
CODE STATUS: Full code
Anticipated Discharge: Within 24 hours
Subjective/Interval History
-
Date of Service: February 07, 2025
No overnight event. She denied shortness of breath chest pain, abd pain. denied dysuria, frequency. Her pain is controlled with oral Oxycodan 5mg .
Objective Data
-
Labs:
Laboratory Results
02/07/25
06:42
WBC 16.8 H
Hgb 8.7 L
Hct 27.1 L
Plt Count 570 H
Vital Signs:
Vital Signs
Temp Pulse Resp BP Pulse Ox
99.1 F 74 16 129/59 96
02/06/25 23:48 02/06/25 23:48 02/06/25 23:48 02/06/25 23:48 02/06/25 23:48
I&O
02/06/25 02/07/25 02/08/25
06:59 06:59 06:59
Intake Total 1320 / 1320 660 / 660
Balance 1320 / 1320 660 / 660
Review of Systems
-
History Source: Patient
Constitutional: Reports No Symptoms
EENT: Reports No Symptoms Reported
Respiratory: Reports No Symptoms
Cardiac: Reports No Symptoms
Genitourinary: Reports No Symptoms
Musculoskeletal: Reports Other (Right lower extremity pain, 7 out of 10)
Skin: Reports No Symptoms
Neuro: Reports No Symptoms
Endocrine: Reports No Symptoms
Hematologic / Lymphatic: Reports No Symptoms
Allergy / Immunology: Reports No Symptoms
Physical Exam
-
General: Well Developed, Well Nourished and No Apparent Distress
HEENT: Normocephalic and Atraumatic
Respiratory: Clear to Auscultation
Cardiac: Regular Rhythm and S1/S2
GI: Soft, Nontender and Nondistended
Musculoskeletal: Other (bka)
Skin: Warm, Dry and Rash
Neuro: Awake, Alert and Oriented
Psych: Calm
[2025-02-07] MEDS: DAKIN'S SOLUTION 0.125% 1/4 STRENGTH TOPICAL ×2 (08:00→19:56)
[2025-02-07] MEDS: GLUCOPHAGE PO (08:00)
[2025-02-07] MEDS: COLACE PO ×2 (08:00→19:56)
--- NOTE | 2025-02-07 09:44 | W.PN.CARDCBS ---
Addendum entered and electronically signed by Gary Allen DO 02/07/25 13:04:
I saw and examined the patient.
The Sheriff'S Detective's note was reviewed and I agree with the note.
Comment:
Plan:
KENYON without endocarditis
EF preserved
HR and bp stable.
Stable cv status
Please recall if needed.
Exam:
General: No acute distress, AAOX3
Neck: Negative JVD
Heart: Regular, Negative S3 positive S1/S2, Negative S4, No murmur
Lungs: CTA b/l, negative wheezes/rales/rhonchi
Abd: Positive BS, NT/ND, neg rebound/rigidity/guarding
Ext: Left BKA, Negative cyanosis/clubbing/edema right
Neuro: nonfocal
Original Note:
Today's Communication / Plan
-
KENYON without obvious endocarditis, please call cardiology back with any questions
Impression / Plan
-
PCP: Dr. Burdick
Pipe Or Steam Fitter Furnace Installer: Previously seen by Dr. Allen
Impression:
Presented with falls, weakness, fever
L ankle osteomyelitis
s/p L BKA 02/02/2025
R knee fracture
MRSA bacteremia
HTN
HLD
DM2
h/o L ankle fracture w/ infected hardware 11/2023
Echo 08/05/2016: EF 55 to 60%, mild TR, estimated PAP 28 to 33 mmHg
KENYON 08/12/2016: EF 60%, no evidence of endocarditis
Echo 01/30/2025: EF 56%, trace MR, mild TR, estimated PAP 39 mmHg
KENYON 02/07/2025: EF 55 to 60%, normal BiV size and function without WMA, no significant valve disease, no obvious endocarditis
Plan:
-Presented with weakness, fevers, and falls. Found to have left ankle osteomyelitis and is s/p L BKA 02/02/2025.
-Blood cultures positive for MRSA on 01/27/25, subsequent blood cultures have been negative.
-Continues on antibiotics with daptomycin per ID recommendations.
-ID recommended KENYON which was performed on 02/07/2025 and did not show any obvious endocarditis.
-Continue Toprol 25 mg daily. BP stable.
-She has no current cardiac complaints.
-Please call cardiology back with any questions
HPI: Sarah is a 74 year old female with PMH of HTN, HLD, DM2, and infected L ankle hardware who presented to [facility] for evaluated of fevers, weakness and falls. She was noted to have L ankle cellulitis, as well as R knee fracture. MRI later in
admission confirmed L ankle osteomyelitis and she underwent L BKA 02/02. Initial blood cultures + for MRSA, however subsequent blood cultures have been negative. She continues on daptomycin for antibiotics, however KENYON has been requested to
determine duration of treatment. She had TTE on 01/30 which showed no evidence of vegetation. No current cardiac complaints.
Progress Note - Pipe Or Steam Fitter Furnace Installer
Subjective
Date of Service: February 07, 2025
Denies chest pain
Objective
Labs:
02/07/25 06:42
02/05/25 06:13
Labs
Hgb 8.7 g/dL (12.0-16.0) L 02/07/25 06:42
Hct 27.1 % (37.0-47.0) L 02/07/25 06:42
Plt Count 570 10^3/uL (130-400) H 02/07/25 06:42
Sodium 137 mmol/L (135-145) 02/05/25 06:13
Potassium 4.1 mmol/L (3.5-5.1) 02/05/25 06:13
BUN 11 mg/dl (7-17) 02/05/25 06:13
Creatinine 0.6 mg/dL (0.6-1.0) 02/05/25 06:13
Glucose 99 mg/dl (70-99) 02/05/25 06:13
Vital Signs and I&O:
Vital Signs
Temp Pulse Resp BP Pulse Ox
98.3 F 84 12 133/56 93
02/07/25 07:00 02/07/25 07:00 02/07/25 07:00 02/07/25 07:00 02/07/25 07:00
Vital Signs
Temp Pulse Resp BP Pulse Ox
98.3 F 84 12 133/56 93
02/07/25 07:00 02/07/25 07:00 02/07/25 07:00 02/07/25 07:00 02/07/25 07:00
Intake & Output
02/05/25 02/06/25 02/07/25 02/08/25
06:59 06:59 06:59 06:59
Intake Total 240 / 240 1320 / 1320 660 / 660
Output Total 650 / 650
Balance -410 / -410 1320 / 1320 660 / 660
Physical Exam
Physical Exam
GEN: AAO x 3
LUNGS: RA. No audible wheeze
CV: Reg
[2025-02-07] MEDS: DESENEX/MITRAZOL/ZEASORB 1 APPLIC TOPICAL ×2 (11:12→20:08)
[2025-02-07] MEDS: FEOSOL 325 MG PO (11:15)
[2025-02-07] MEDS: VITAMIN D3 (cholecalciferol) 25 MCG PO (11:16)
[2025-02-07] MEDS: TOPROL XL 25 MG PO (11:17)
[2025-02-07] MEDS: VISBIOME 1 CAP PO (11:18)
[2025-02-07] MEDS: SENOKOT-S PO ×2 (11:20→19:56)
[2025-02-07 11:49] LABS: Glucose - Point of Care 153 mg/dl (70-99)
[2025-02-07 11:56] VITALS: BP 117/54
--- NOTE | 2025-02-07 13:45 | W.PN.ID1 ---
Date of Service
Date of Service: February 07, 2025
Today's Communication
Continue daptomycin through 02/11/2025, then discontinue further antibiotics.
Assessment / Plan
MRSA bacteremia
Leukocytosis
Fever
Left lower extremity cellulitis
Right knee pain/swelling
S/p fall
Right knee displaced fracture (medial femoral condyle)
Nonsalvageable severe osseous destructive changes in hindfoot osteo
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
Prior to admission:
HLD
DM
Bilateral cataracts
Hx left ankle osteomyelitis
Recommendations:
MRSA bacteremia
- last positive culture 01/27/25
Blood cx's neg from 01/28 x 1, 01/31 x 2
TTE / KENYON: no gross vegetation
Leukocytosis - up today for unclear reasons.
With negative KENYON, continue daptomycin through 02/11 then discontinue further abx.
- Elevated CK post-op. 183->281->204 -> 111 -> 67
- Continue to trend CK. DC daptomycin if CK>5x normal + symptoms of myopathy, or CK >10x without sxs.
����������������������������������������������������������
Chief Complaint
-: Bacteremia
Subjective / Review of Systems
Patient seen and examined. No specific complaints at present. Underwent KENYON earlier today.
Vital Signs / Physical Exam
Vital Signs
Vital Signs
Temp Pulse Resp BP Pulse Ox
99 F 70 16 117/54 96
02/07/25 11:56 02/07/25 11:56 02/07/25 11:56 02/07/25 11:56 02/07/25 11:56
Physical Exam
Constitutional: No Acute Distress
Cardiovascular: Regular Rate and S1/S2
Pulmonary: Clear
Gastrointestinal: Soft, Non Tender, Non Distended and Normal Bowel Sounds
Extremities: Other (LLE in bandages ); Negative Edema
Wound: Other (Left BKA dressing dry. )
Neurological: AO x 3
Objective Data
Lab Data
Lab Results
02/07/25 06:42
02/05/25 06:13
ESR 99 mm/hour (0-20) H 01/31/25 06:26
Estimated Creat Clear 95 ml/min 02/05/25 06:13
Lactic Acid Cancelled 01/26/25 13:30
Total Bilirubin 0.5 mg/dl (0.2-1.3) 02/05/25 06:13
AST 19 U/L (14-36) 02/05/25 06:13
ALT 15 U/L (0-35) 02/05/25 06:13
Alkaline Phosphatase 76 U/L (38-126) 02/05/25 06:13
C-Reactive Protein 200.00 mg/L (0.0-10.00) H 01/31/25 06:27
Most recent labs reviewed.
Micro Results:
01/31/25 17:16 Blood Culture - Final
Blood/Venous No Growth - Final Report
01/31/25 15:07 Blood Culture - Final
Blood/Venous No Growth - Final Report
01/27/25 11:15 Blood Culture - Final
Blood/Venous Staph aureus MRSA
Gram Stain - Final
01/28/25 13:36 Blood Culture - Final
Blood/Venous No Growth - Final Report
01/26/25 09:22 Blood Culture - Final
Blood/Venous Staph aureus MRSA
Gram Stain - Final
01/26/25 09:22 Blood Culture - Final
Blood/Venous Staph aureus MRSA
Gram Stain - Final
01/26/25 13:50 Urine Culture - Final
Urine No Significant Growth
01/26/25 09:22 Influenza Types A & B (MAUREEN) - Final
Nasal Swab Negative for Influenza A & B, NAAT
Negative results must be combined with clinical observations
and patient history.
Nucleic Acid Amplification test (NAAT)performed on the
[employer] platform.
Imaging:
02/07/2025 ECHO (KENYON): normal biventricular size and function, without regional wall motion abnormalities. EF approximately 60%. No significant valvular disease. No obvious endocarditis or vegetations noted. Please see full dictation for
additional detail.
01/31/2025 MRI left ankle: severe osseous destructive changes and bone marrow signal alteration in the hindfoot. Primary consideration would include sequela of osteomyelitis versus very severe Charcot arthrosis. Please see full dictation for
additional detail.
01/30/2025 ECHO (TTE): normal ventricular size and systolic function. Trace mitral regurgitation. Mild tricuspid regurgitation. No pericardial effusion. No noted vegetations.
01/26/2025 x-ray left ankle: Bony destruction of the talar dome, sparing the distal talus. Findings very likely represents sequela of osteomyelitis, new since examination 2017. There is some bony loss involving the distal tibia and fibula, which is
also likely from osteomyelitis. Periosteal new bone formation involving the distal tibia and fibula, likely findings of chronic osteomyelitis.
[2025-02-07 14:30] VITALS: BP 101/47
[2025-02-07 15:30] VITALS: BP 101/47
[2025-02-07 16:30] VITALS: BP 101/47
[2025-02-07 16:49] LABS: Glucose - Point of Care 180 mg/dl (70-99)
--- NOTE | 2025-02-07 17:03 | CM ---
Patient for discharge when SNF bed available. Pt has provided choices and referrals placed. No acceptances yet. Will ask for more facilities.
Plan: DC to SNF when bed is available
[2025-02-07] MEDS: GLUCOPHAGE 1000 MG PO (17:06)
[2025-02-07] MEDS: CUBICIN 18 MG IV (17:06)
[2025-02-07] MEDS: LOVENOX 40 MG SC (17:34)
[2025-02-07 21:17] LABS: Glucose - Point of Care 197 mg/dl (70-99)
[2025-02-07] MEDS: TYLENOL 650 MG PO (23:11)
[2025-02-07 23:25] VITALS: BP 116/60
--- NOTE | 2025-02-08 07:09 | W.PN.HOSP.TC ---
Today's Communication/Plan
-
Mid line placed today
discharged today to SNF
Continue daptomycin through midline at [facility] and stop on 02/12/2025
continue CK, CMP, CBC blood test at [facility]
Assessment / Plan
Assessment / Plan
Impression:
74-year-old female with past medical history of left ankle ORIF last year complicated by infected hardware status post removal at [facility], hypertension, hyperlipidemia, type 2 diabetes, history of left thigh lesion s/p ultrasound guided
biopsy in 2019, p/w fever of 102, generalized weakness, and fall. No head injury.
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
02/03/2025: bowel movements, O2 3L, Quinones cath inserted,
02/04/2025: Off nasal O2,off NSS iv, Dilaudid MANUFACTURED BUILDINGS REPAIRER discontinued , oral oxycodone started for pain, quinones cath removed, bladder scan, chest x-ray was done today (NORMAL) as the pt required 3L oxygen since the surgery.
02/05/2025: remained on room air AFVSS, normal urination without Quinones cath, pain controlled with oral pain med
02/06/2025 Glyburide stopped due to hypoglycemia
Assessment and plan:
#Lt ankle OM with MRSA bacteremia
-The cause of OM is likely related to wound infection due to unhealed wound since the left knee infection and hard mojica removal s/p left ankle ORIF
- ID consulted and following
-discontinued cefipime
-discontinued vancomycin 4 days
-Daptomycin 900 mg day 8
- Blood culture X1 01/26 positive for Staph aureus, MRSA
- Blood culture X1 01/26 positive for Staph aureus, MRSA
- Blood culture X1 from 01/27 gram positive cocci in clusters
- Blood culture X1 from 01/28 no growth in 48 hours
- Blood culture X2 from 01/31 no growth to date
- WBC 13.3-13.7-14.4-14.6--12.1--11.7--12.6--16.8 --16.1
- Hb stable 9.1
-urine culture negative
-ID on board
-podiatry on board
-vascular surgeon on bard
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
- ID recc KENYON to rule out endocarditis
- cardiology consulted for KENYON as an inpatient - scheduled tomorrow 02/07/2025
Echo 01/30/2025: EF 56%, trace MR, mild TR, estimated PAP 39 mmHg
KENYON 02/07/2025: EF 55 to 60%, normal BiV size and function without WMA, no significant valve disease, no obvious endocarditis
#Elevated CK
likely related to daptomycine vs BKA
02/03 --183
02/04 --281
02/04--204
02/07--67
02/08--47
will monitor
#Fall secondary to weakness
- Femur x-ray indicating slightly displaced femur fracture
- Consulted orthopedics for right femur
- Consulted podiatry for left ankle/foot as suggested by orthopedics
- Knee immobilizer for right femur
- Pain management as needed
- CT head negative, CT cervical spine negative
- Podiatry ordered left ankle MRI to assess osteomyelitis VS. Charcot foot, still pending
- Urine culture negative
#HLD
- Continue statin
#Type 2 diabetes
- Holding glyburide due to hypoglycemia
- continue metformin
- Diabetic diet
#Hypertension
- Continue metoprolol
Diet: Diabetic diet
DVT PPx: Lovenox
CODE STATUS: Full code
Anticipated Discharge: Today
Subjective/Interval History
-
Date of Service: February 08, 2025
No overnight event. Her pain has been controlled with oral meds oxycodone 5 mg BID. She denied shortness of breath , chest pain, or urinary symptoms. She denied abd pain.
Objective Data
-
Labs:
Laboratory Results
02/08/25
06:00
WBC Pending
Hgb Pending
Hct Pending
Plt Count Pending
Vital Signs:
Vital Signs
Temp Pulse Resp BP Pulse Ox
98.3 F 82 17 116/60 91
02/08/25 03:11 02/07/25 23:25 02/07/25 23:25 02/07/25 23:25 02/07/25 23:25
I&O
02/07/25 02/08/25 02/09/25
06:59 06:59 06:59
Intake Total 660 / 660 840 / 840
Balance 660 / 660 840 / 840
Review of Systems
-
History Source: Patient
Constitutional: Reports No Symptoms
EENT: Reports No Symptoms Reported
Respiratory: Reports No Symptoms
Cardiac: Reports No Symptoms
Genitourinary: Reports No Symptoms
Musculoskeletal: Reports Other (Right lower extremity pain, 7 out of 10)
Skin: Reports No Symptoms
Neuro: Reports No Symptoms
Endocrine: Reports No Symptoms
Hematologic / Lymphatic: Reports No Symptoms
Allergy / Immunology: Reports No Symptoms
Physical Exam
-
General: Well Developed, Well Nourished and No Apparent Distress
HEENT: Normocephalic and Atraumatic
Respiratory: Clear to Auscultation
Cardiac: Regular Rhythm and S1/S2
GI: Soft, Nontender and Nondistended
Musculoskeletal: Other (bka)
Skin: Warm, Dry and Rash
Neuro: Awake, Alert and Oriented
Psych: Calm
[2025-02-08 08:00] LABS: Glucose - Point of Care 167 mg/dl (70-99)
[2025-02-08 08:00] LABS: Hematocrit 29.1 % (37.0-47.0); Hemoglobin 9.2 g/dL (12.0-16.0); Mean Corp Hgb Conc. 31.6 g/dL (33.0-37.0); Mean Corpuscular Volume 81.5 fL (81.0-99.0); Nucleated Red Blood Cells % 0 %; Platelet Count 605 10^3/uL (130-400); Red Cell Dist. Width 17.3 % (11.5-14.5)
[2025-02-08] MEDS: COLACE PO ×2 (08:29→21:45)
[2025-02-08] MEDS: GLUCOPHAGE 1000 MG PO ×2 (08:29→17:27)
[2025-02-08] MEDS: TOPROL XL 25 MG PO (08:29)
[2025-02-08] MEDS: VITAMIN D3 (cholecalciferol) 25 MCG PO (08:30)
[2025-02-08] MEDS: FEOSOL 325 MG PO (08:30)
[2025-02-08] MEDS: SENOKOT-S PO ×2 (08:30→21:49)
[2025-02-08] MEDS: DESENEX/MITRAZOL/ZEASORB 1 APPLIC TOPICAL ×2 (08:30→21:50)
[2025-02-08] MEDS: VISBIOME 1 CAP PO (08:30)
[2025-02-08 08:31] VITALS: BP 146/69
[2025-02-08] MEDS: NOVOLOG FLEXPEN-LOW RESISTANCE 1 UNITS SC (08:32)
[2025-02-08] MEDS: DAKIN'S SOLUTION 0.125% 1/4 STRENGTH TOPICAL (08:35)
--- NOTE | 2025-02-08 09:59 | CM ---
Addendum entered by Zahra Mcleod 02/08/25 14:57:
IMM given and placed on chart
[facility] has accepted this pt. Bed is available tomorrow. Transport is set up for 9:30 AM. Transport papers on chart. The following documents need to be faxed to the facility tomorrow:
MIdline report
ABX scripts
Oxycodone script
ID note
Documents are on the front of the chart
Plan: DC to [facility]
Report: [phone]

Addendum entered by Zahra Mcleod 02/08/25 12:10:
NO beds available at [facility] until next week. Pt continues on IV ABX, mid-line placed
Original Note:
Spoke with pt and placed additional SNF referrals today. [facility]isonJamla, who will speak with her team about bed availability for today.
Plan: DC to [facility] bed is available
--- NOTE | 2025-02-08 11:32 | W.PN.ID1 ---
Date of Service
Date of Service: February 08, 2025
Today's Communication
Continue current course of daptomycin
Assessment / Plan
MRSA bacteremia
Leukocytosis
Fever
Left lower extremity cellulitis
Right knee pain/swelling
S/p fall
Right knee displaced fracture (medial femoral condyle)
Nonsalvageable severe osseous destructive changes in hindfoot osteo
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
Prior to admission:
HLD
DM
Bilateral cataracts
Hx left ankle osteomyelitis
Recommendations:
MRSA bacteremia
- last positive culture 01/27/25
Blood cx's neg from 01/28 x 1, 01/31 x 2
TTE / KENYON: no gross vegetation
Leukocytosis - up today for unclear reasons.
With negative KENYON, continue daptomycin through 02/11 then discontinue further abx.
- Elevated CK post-op. 183->281->204 -> 111 -> 67
����������������������������������������������������������
Chief Complaint
-: Bacteremia
Subjective / Review of Systems
Review of Systems: No Fever and No Chills
Vital Signs / Physical Exam
Vital Signs
Vital Signs
Temp Pulse Resp BP Pulse Ox
98.9 F 73 18 146/69 97
02/08/25 08:31 02/08/25 08:31 02/08/25 08:31 02/08/25 08:31 02/08/25 08:31
Physical Exam
Constitutional: No Acute Distress
Cardiovascular: Regular Rate and S1/S2
Pulmonary: Clear
Gastrointestinal: Soft, Non Tender, Non Distended and Normal Bowel Sounds
Extremities: Other (LLE in bandages ); Negative Edema
Wound: Other (Left BKA dressing dry. )
Neurological: AO x 3
Objective Data
Lab Data
Lab Results
02/08/25 07:19
02/05/25 06:13
ESR 99 mm/hour (0-20) H 01/31/25 06:26
Estimated Creat Clear 95 ml/min 02/05/25 06:13
Lactic Acid Cancelled 01/26/25 13:30
Total Bilirubin 0.5 mg/dl (0.2-1.3) 02/05/25 06:13
AST 19 U/L (14-36) 02/05/25 06:13
ALT 15 U/L (0-35) 02/05/25 06:13
Alkaline Phosphatase 76 U/L (38-126) 02/05/25 06:13
C-Reactive Protein 200.00 mg/L (0.0-10.00) H 01/31/25 06:27
Most recent labs reviewed.
Micro Results:
01/31/25 17:16 Blood Culture - Final
Blood/Venous No Growth - Final Report
01/31/25 15:07 Blood Culture - Final
Blood/Venous No Growth - Final Report
01/27/25 11:15 Blood Culture - Final
Blood/Venous Staph aureus MRSA
Gram Stain - Final
01/28/25 13:36 Blood Culture - Final
Blood/Venous No Growth - Final Report
01/26/25 09:22 Blood Culture - Final
Blood/Venous Staph aureus MRSA
Gram Stain - Final
01/26/25 09:22 Blood Culture - Final
Blood/Venous Staph aureus MRSA
Gram Stain - Final
01/26/25 13:50 Urine Culture - Final
Urine No Significant Growth
01/26/25 09:22 Influenza Types A & B (MAUREEN) - Final
Nasal Swab Negative for Influenza A & B, NAAT
Negative results must be combined with clinical observations
and patient history.
Nucleic Acid Amplification test (NAAT)performed on the
[employer] NOW platform.
Imaging:
02/07/2025 ECHO (KENYON): normal biventricular size and function, without regional wall motion abnormalities. EF approximately 60%. No significant valvular disease. No obvious endocarditis or vegetations noted. Please see full dictation for
additional detail.
01/31/2025 MRI left ankle: severe osseous destructive changes and bone marrow signal alteration in the hindfoot. Primary consideration would include sequela of osteomyelitis versus very severe Charcot arthrosis. Please see full dictation for
additional detail.
01/30/2025 ECHO (TTE): normal ventricular size and systolic function. Trace mitral regurgitation. Mild tricuspid regurgitation. No pericardial effusion. No noted vegetations.
01/26/2025 x-ray left ankle: Bony destruction of the talar dome, sparing the distal talus. Findings very likely represents sequela of osteomyelitis, new since examination 2017. There is some bony loss involving the distal tibia and fibula, which is
also likely from osteomyelitis. Periosteal new bone formation involving the distal tibia and fibula, likely findings of chronic osteomyelitis.
[2025-02-08 12:24] LABS: Glucose - Point of Care 147 mg/dl (70-99)
[2025-02-08] MEDS: NOVOLOG FLEXPEN-LOW RESISTANCE SC ×2 (12:37→17:21)
[2025-02-08] MEDS: ROXICODONE 5 MG PO (12:52)
[2025-02-08 15:55] VITALS: BP 124/54
[2025-02-08] MEDS: CUBICIN 18 MG IV (15:57)
[2025-02-08] MEDS: FLUSH (NSS) 2 FLUSH IV (15:58)
[2025-02-08 17:11] LABS: Glucose - Point of Care 129 mg/dl (70-99)
[2025-02-08] MEDS: LOVENOX 40 MG SC (17:28)
[2025-02-08 21:47] LABS: Glucose - Point of Care 177 mg/dl (70-99)
[2025-02-08 23:19] VITALS: BP 120/52
[2025-02-09] MEDS: ROXICODONE 5 MG PO ×2 (00:27→08:14)
[2025-02-09 06:02] LABS: Hematocrit 25.9 % (37.0-47.0); Hemoglobin 8.3 g/dL (12.0-16.0); Mean Corp Hgb Conc. 32.0 g/dL (33.0-37.0); Mean Corpuscular Volume 80.7 fL (81.0-99.0); Platelet Count 548 10^3/uL (130-400); Red Cell Dist. Width 17.1 % (11.5-14.5)
[2025-02-09 06:24] LABS: ALT (SGPT) 23 U/L (0-35); AST (SGOT) 24 U/L (14-36); Albumin 2.7 g/dl (3.5-5.0); Alkaline Phosphatase 85 U/L (38-126); Blood Urea Nitrogen 14 mg/dl (7-17); Calcium 8.3 mg/dl (8.4-10.2); Carbon Dioxide 24 mmol/L (22-30); Chloride 103 mmol/L (98-107); Estimated Creatinine Clearance 95 ml/min; Glucose 145 mg/dl (70-99); Potassium 4.5 mmol/L (3.5-5.1); Sodium 133 mmol/L (135-145); Total Protein 5.6 g/dl (6.3-8.2); eGFR > 60.00
--- NOTE | 2025-02-09 07:00 | W.PN.HOSP.TC ---
Today's Communication/Plan
-
Continue daptomycin through 02/11/2025
PT/OT
appreciate assistant case manager for SNF placement
Assessment / Plan
Assessment / Plan
Impression:
74-year-old female with past medical history of left ankle ORIF last year complicated by infected hardware status post removal at [facility], hypertension, hyperlipidemia, type 2 diabetes, history of left thigh lesion s/p ultrasound guided
biopsy in 2019, p/w fever of 102, generalized weakness, and fall. No head injury.
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
02/03/2025: bowel movements, O2 3L, Quinones cath inserted,
02/04/2025: Off nasal O2,off NSS iv, Dilaudid BAGGER MEAT discontinued , oral oxycodone started for pain, quinones cath removed, bladder scan, chest x-ray was done today (NORMAL) as the pt required 3L oxygen since the surgery.
02/05/2025: remained on room air AFVSS, normal urination without Quinones cath, pain controlled with oral pain med
02/06/2025 Glyburide stopped due to hypoglycemia
Assessment and plan:
#Lt ankle OM with MRSA bacteremia
-The cause of OM is likely related to wound infection due to unhealed wound since the left knee infection and hard mojica removal s/p left ankle ORIF
- ID consulted and following
-discontinued cefipime
-discontinued vancomycin 4 days
-Daptomycin 900 mg day 9
- Blood culture X1 01/26 positive for Staph aureus, MRSA
- Blood culture X1 01/26 positive for Staph aureus, MRSA
- Blood culture X1 from 01/27 gram positive cocci in clusters
- Blood culture X1 from 01/28 no growth in 48 hours
- Blood culture X2 from 01/31 no growth to date
- WBC 13.3-13.7-14.4-14.6--12.1--11.7--12.6--16.8 --16.1--13.9
- Hb stable 9.1
-urine culture negative
-ID on board
-podiatry on board
-vascular surgeon on bard
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
- ID [facility] KENYON to rule out endocarditis
- cardiology consulted for KENYON as an inpatient - scheduled tomorrow 02/07/2025
Echo 01/30/2025: EF 56%, trace MR, mild TR, estimated PAP 39 mmHg
KENYON 02/07/2025: EF 55 to 60%, normal BiV size and function without WMA, no significant valve disease, no obvious endocarditis
#Elevated CK
likely related to daptomycine vs BKA
02/03 --183
02/04 --281
02/04--204
02/07--67
02/08--47
02/09--33
will monitor
#Fall secondary to weakness
- Femur x-ray indicating slightly displaced femur fracture
- Consulted orthopedics for right femur
- Consulted podiatry for left ankle/foot as suggested by orthopedics
- Knee immobilizer for right femur
- Pain management as needed
- CT head negative, CT cervical spine negative
- Podiatry ordered left ankle MRI to assess osteomyelitis VS. Charcot foot, still pending
- Urine culture negative
#HLD
- Continue statin
#Type 2 diabetes
- Holding glyburide due to hypoglycemia
- continue metformin
- Diabetic diet
#Hypertension
- Continue metoprolol
Diet: Diabetic diet
DVT PPx: Lovenox
CODE STATUS: Full code
Anticipated Discharge: Within 24 hours
Subjective/Interval History
-
Date of Service: February 09, 2025
No overnight events, Her left leg pain controlled with oral Oxycodone 5mg. She denied shortness of breath,chest pain.
Objective Data
-
Labs:
Laboratory Results
02/09/25
05:35
WBC 13.9 H
Hgb 8.3 L
Hct 25.9 L
Plt Count 548 H
Sodium 133 L
Potassium 4.5
Chloride 103
Carbon Dioxide 24
BUN 14
Creatinine 0.6
Glucose 145 H
Calcium 8.3 L
Total Bilirubin 0.5
AST 24
ALT 23
Alkaline Phosphatase 85
Vital Signs:
Vital Signs
Temp Pulse Resp BP Pulse Ox
98.9 F 73 16 120/52 92
02/08/25 23:19 02/08/25 23:19 02/08/25 23:19 02/08/25 23:19 02/08/25 23:19
I&O
02/08/25 02/09/25 02/10/25
06:59 06:59 06:59
Intake Total 840 / 840 1080 / 1080
Balance 840 / 840 1080 / 1080
Review of Systems
-
History Source: Patient
Constitutional: Reports No Symptoms
EENT: Reports No Symptoms Reported
Respiratory: Reports No Symptoms
Cardiac: Reports No Symptoms
Genitourinary: Reports No Symptoms
Musculoskeletal: Reports Other (Right lower extremity pain, 7 out of 10)
Skin: Reports No Symptoms
Neuro: Reports No Symptoms
Endocrine: Reports No Symptoms
Hematologic / Lymphatic: Reports No Symptoms
Allergy / Immunology: Reports No Symptoms
Physical Exam
-
General: Well Developed, Well Nourished and No Apparent Distress
HEENT: Normocephalic and Atraumatic
Respiratory: Clear to Auscultation
Cardiac: Regular Rhythm and S1/S2
GI: Soft, Nontender and Nondistended
Musculoskeletal: Other (bka)
Skin: Warm, Dry and Rash
Neuro: Awake, Alert and Oriented
Psych: Calm
[2025-02-09 07:30] VITALS: BP 128/57
[2025-02-09] MEDS: VITAMIN D3 (cholecalciferol) 25 MCG PO (08:03)
[2025-02-09] MEDS: GLUCOPHAGE 1000 MG PO ×2 (08:03→16:40)
[2025-02-09] MEDS: VISBIOME 1 CAP PO (08:03)
[2025-02-09] MEDS: FEOSOL 325 MG PO (08:03)
[2025-02-09] MEDS: TOPROL XL 25 MG PO (08:04)
[2025-02-09] MEDS: SENOKOT-S PO ×2 (08:04→20:50)
[2025-02-09] MEDS: DESENEX/MITRAZOL/ZEASORB 1 APPLIC TOPICAL ×2 (08:04→20:50)
[2025-02-09] MEDS: COLACE PO ×2 (08:04→20:50)
[2025-02-09 08:10] LABS: Glucose - Point of Care 168 mg/dl (70-99)
[2025-02-09] MEDS: NOVOLOG FLEXPEN-LOW RESISTANCE 1 UNITS SC ×2 (09:25→12:40)
--- NOTE | 2025-02-09 10:27 | CM ---
CM contacted by Marzena Do from [facility]. Pt was initially accepted for admission today, however per Marzena, patient has used all of her SNF days, so is not eligible for SNF at this time.
CM will speak with patient/family to discuss alternate options: private pay for SNF, discharge to home with services ([facility]?).
[2025-02-09 12:10] LABS: Glucose - Point of Care 152 mg/dl (70-99)
--- NOTE | 2025-02-09 13:07 | CM ---
Pt was scheduled for discharge to [facility] today, however CM notified that pt has used all of her skilled days. CM attempted to speak with Sarah, however she was sound asleep. Call placed to Sarah's brother, Aleksandar Campos
([phone]) to discuss inability to transfer to [facility] due to lack of insurance coverage, as she has used all of her SNF days.
Per Aleksandar, Sarah is the decision maker.
Plan: CM to follow up with Sarah later today to discuss discharge planning.
[2025-02-09 15:16] VITALS: BP 122/62
--- NOTE | 2025-02-09 15:37 | CM ---
MYNOR spoke with Sarah this afternoon. Her preference would be to go to [facility]. She has been there previously and paid privately and is agreeable to do the same again.
Plan: CM to follow up with [facility] to discuss LTC SNF transfer with private pay.
[2025-02-09 16:33] LABS: Glucose - Point of Care 119 mg/dl (70-99)
[2025-02-09] MEDS: CUBICIN 18 MG IV (16:39)
[2025-02-09] MEDS: NOVOLOG FLEXPEN-LOW RESISTANCE SC (16:40)
[2025-02-09] MEDS: LOVENOX 40 MG SC (17:32)
[2025-02-09 21:28] LABS: Glucose - Point of Care 157 mg/dl (70-99)
[2025-02-09 23:39] VITALS: BP 121/60
--- NOTE | 2025-02-10 07:13 | W.PN.HOSP.TC ---
Today's Communication/Plan
-
Plan for discharge today
continue daptomycin through midline after discharge through 02/11/2025
PT/OT today
caser in following rehab placement
Assessment / Plan
Assessment / Plan
Impression:
74-year-old female with past medical history of left ankle ORIF last year complicated by infected hardware status post removal at [facility], hypertension, hyperlipidemia, type 2 diabetes, history of left thigh lesion s/p ultrasound guided
biopsy in 2019, p/w fever of 102, generalized weakness, and fall. No head injury.
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
02/03/2025: bowel movements, O2 3L, Quinones cath inserted,
02/04/2025: Off nasal O2,off NSS iv, Dilaudid TELESALES SPECIALIST discontinued , oral oxycodone started for pain, quinones cath removed, bladder scan, chest x-ray was done today (NORMAL) as the pt required 3L oxygen since the surgery.
02/05/2025: remained on room air AFVSS, normal urination without Quinones cath, pain controlled with oral pain med
02/06/2025 Glyburide stopped due to hypoglycemia
Assessment and plan:
#Lt ankle OM with MRSA bacteremia
-The cause of OM is likely related to wound infection due to unhealed wound since the left knee infection and hard mojica removal s/p left ankle ORIF
- ID consulted and following
-discontinued cefipime
-discontinued vancomycin 4 days
-Daptomycin 900 mg day 10
- Blood culture X1 01/26 positive for Staph aureus, MRSA
- Blood culture X1 01/26 positive for Staph aureus, MRSA
- Blood culture X1 from 01/27 gram positive cocci in clusters
- Blood culture X1 from 01/28 no growth in 48 hours
- Blood culture X2 from 01/31 no growth to date
- WBC 13.3-13.7-14.4-14.6--12.1--11.7--12.6--16.8 --16.1--13.9--13.5
- Hb stable 9.1
-urine culture negative
-ID on board
-podiatry on board
-vascular surgeon on bard
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
- ID rec KENYON to rule out endocarditis
- cardiology consulted for KENYON as an inpatient - scheduled tomorrow 02/07/2025
Echo 01/30/2025: EF 56%, trace MR, mild TR, estimated PAP 39 mmHg
KENYON 02/07/2025: EF 55 to 60%, normal BiV size and function without WMA, no significant valve disease, no obvious endocarditis
#Elevated CK
likely related to daptomycine vs BKA
02/03 --183
02/04 --281
02/04--204
02/07--67
02/08--47
02/09--33
02/09--50
will monitor
#Fall secondary to weakness
- Femur x-ray indicating slightly displaced femur fracture
- Consulted orthopedics for right femur
- Consulted podiatry for left ankle/foot as suggested by orthopedics
- Knee immobilizer for right femur
- Pain management as needed
- CT head negative, CT cervical spine negative
- Podiatry ordered left ankle MRI to assess osteomyelitis VS. Charcot foot, still pending
- Urine culture negative
#HLD
- Continue statin
#Type 2 diabetes
- Holding glyburide due to hypoglycemia
- continue metformin
- Diabetic diet
#Hypertension
- Continue metoprolol
Diet: Diabetic diet
DVT PPx: Lovenox
CODE STATUS: Full code
Anticipated Discharge: Today
Subjective/Interval History
-
Date of Service: February 10, 2025
No overnight event. Her leg pain controlled with oral meds. She denied sob, chest pain, palpitation. No change in bowel movements, no urinary symptoms.
Objective Data
-
Labs:
Laboratory Results
02/10/25
06:00
WBC Pending
Hgb Pending
Hct Pending
Plt Count Pending
Sodium Pending
Potassium Pending
Chloride Pending
Carbon Dioxide Pending
BUN Pending
Creatinine Pending
Glucose Pending
Calcium Pending
Total Bilirubin Pending
AST Pending
ALT Pending
Alkaline Phosphatase Pending
Vital Signs:
Vital Signs
Temp Pulse Resp BP Pulse Ox
98.7 F 77 18 121/60 92
02/09/25 23:39 02/09/25 23:39 02/09/25 23:39 02/09/25 23:39 02/09/25 23:39
I&O
02/09/25 02/10/25 02/11/25
06:59 06:59 06:59
Intake Total 1080 / 1080 360 / 360
Balance 1080 / 1080 360 / 360
Review of Systems
-
History Source: Patient
Constitutional: Reports No Symptoms
EENT: Reports No Symptoms Reported
Respiratory: Reports No Symptoms
Cardiac: Reports No Symptoms
Genitourinary: Reports No Symptoms
Musculoskeletal: Reports Other (Right lower extremity pain, 7 out of 10)
Skin: Reports No Symptoms
Neuro: Reports No Symptoms
Endocrine: Reports No Symptoms
Hematologic / Lymphatic: Reports No Symptoms
Allergy / Immunology: Reports No Symptoms
Physical Exam
-
General: Well Developed, Well Nourished and No Apparent Distress
HEENT: Normocephalic and Atraumatic
Respiratory: Clear to Auscultation
Cardiac: Regular Rhythm and S1/S2
GI: Soft, Nontender and Nondistended
Musculoskeletal: Other (bka)
Skin: Warm, Dry and Rash
Neuro: Awake, Alert and Oriented
Psych: Calm
[2025-02-10 07:20] VITALS: BP 140/64
[2025-02-10 07:41] LABS: Glucose - Point of Care 168 mg/dl (70-99)
[2025-02-10] MEDS: COLACE PO ×2 (07:59→19:57)
[2025-02-10] MEDS: SENOKOT-S PO ×2 (07:59→19:57)
[2025-02-10] MEDS: VITAMIN D3 (cholecalciferol) 25 MCG PO (08:00)
[2025-02-10] MEDS: VISBIOME 1 CAP PO (08:00)
[2025-02-10] MEDS: TOPROL XL 25 MG PO (08:00)
[2025-02-10] MEDS: GLUCOPHAGE 1000 MG PO ×2 (08:00→17:18)
[2025-02-10] MEDS: DESENEX/MITRAZOL/ZEASORB 1 APPLIC TOPICAL ×2 (08:00→19:57)
[2025-02-10] MEDS: FEOSOL 325 MG PO (08:00)
[2025-02-10] MEDS: NOVOLOG FLEXPEN-LOW RESISTANCE 1 UNITS SC ×2 (09:08→17:18)
[2025-02-10 09:48] LABS: Hematocrit 29.0 % (37.0-47.0); Hemoglobin 9.1 g/dL (12.0-16.0); Mean Corp Hgb Conc. 31.4 g/dL (33.0-37.0); Mean Corpuscular Volume 80.1 fL (81.0-99.0); Nucleated Red Blood Cells % 0 %; Platelet Count 576 10^3/uL (130-400); Red Cell Dist. Width 16.8 % (11.5-14.5)
[2025-02-10 10:17] LABS: ALT (SGPT) 30 U/L (0-35); AST (SGOT) 24 U/L (14-36); Albumin 3.2 g/dl (3.5-5.0); Alkaline Phosphatase 93 U/L (38-126); Blood Urea Nitrogen 12 mg/dl (7-17); Calcium 8.5 mg/dl (8.4-10.2); Carbon Dioxide 23 mmol/L (22-30); Chloride 103 mmol/L (98-107); Estimated Creatinine Clearance 95 ml/min; Glucose 166 mg/dl (70-99); Potassium 4.4 mmol/L (3.5-5.1); Sodium 133 mmol/L (135-145); Total Protein 6.3 g/dl (6.3-8.2); eGFR > 60.00
[2025-02-10 11:15] VITALS: BP 132/56
[2025-02-10 11:58] LABS: Glucose - Point of Care 134 mg/dl (70-99)
[2025-02-10] MEDS: NOVOLOG FLEXPEN-LOW RESISTANCE SC (11:59)
[2025-02-10] MEDS: CUBICIN 18 MG IV (14:03)
--- NOTE | 2025-02-10 14:21 | W.PN.ID1 ---
Date of Service
Date of Service: February 10, 2025
Today's Communication
Continue daptomycin through tomorrow then discontinue further antibiotics.
Assessment / Plan
MRSA bacteremia
Leukocytosis
Fever
Left lower extremity cellulitis
Right knee pain/swelling
S/p fall
Right knee displaced fracture (medial femoral condyle)
Nonsalvageable severe osseous destructive changes in hindfoot osteo
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
Prior to admission:
HLD
DM
Bilateral cataracts
Hx left ankle osteomyelitis
Recommendations:
MRSA bacteremia
- last positive culture 01/27/25
Blood cx's neg from 01/28 x 1, 01/31 x 2
TTE / KENYON: no gross vegetation
Leukocytosis - up today for unclear reasons.
With negative KENYON, continue daptomycin through 02/11, then discontinue further abx.
����������������������������������������������������������
Chief Complaint
-: Bacteremia
Subjective / Review of Systems
Review of Systems: No Fever and No Chills
Vital Signs / Physical Exam
Vital Signs
Vital Signs
Temp Pulse Resp BP Pulse Ox
99.2 F 74 18 132/56 92
02/10/25 11:15 02/10/25 11:15 02/10/25 11:15 02/10/25 11:15 02/10/25 11:15
Physical Exam
Constitutional: No Acute Distress
Cardiovascular: Regular Rate and S1/S2
Pulmonary: Clear
Gastrointestinal: Soft, Non Tender, Non Distended and Normal Bowel Sounds
Extremities: Other (LLE in bandages ); Negative Edema
Wound: Other (Left BKA dressing dry. )
Neurological: AO x 3
Objective Data
Lab Data
Lab Results
02/10/25 09:36
02/10/25 09:36
ESR 99 mm/hour (0-20) H 01/31/25 06:26
Estimated Creat Clear 95 ml/min 02/10/25 09:36
Lactic Acid Cancelled 01/26/25 13:30
Total Bilirubin 0.6 mg/dl (0.2-1.3) 02/10/25 09:36
AST 24 U/L (14-36) 02/10/25 09:36
ALT 30 U/L (0-35) 02/10/25 09:36
Alkaline Phosphatase 93 U/L (38-126) 02/10/25 09:36
C-Reactive Protein 200.00 mg/L (0.0-10.00) H 01/31/25 06:27
Most recent labs reviewed.
Micro Results:
01/31/25 17:16 Blood Culture - Final
Blood/Venous No Growth - Final Report
01/31/25 15:07 Blood Culture - Final
Blood/Venous No Growth - Final Report
01/27/25 11:15 Blood Culture - Final
Blood/Venous Staph aureus MRSA
Gram Stain - Final
01/28/25 13:36 Blood Culture - Final
Blood/Venous No Growth - Final Report
01/26/25 09:22 Blood Culture - Final
Blood/Venous Staph aureus MRSA
Gram Stain - Final
01/26/25 09:22 Blood Culture - Final
Blood/Venous Staph aureus MRSA
Gram Stain - Final
01/26/25 13:50 Urine Culture - Final
Urine No Significant Growth
01/26/25 09:22 Influenza Types A & B (MAUREEN) - Final
Nasal Swab Negative for Influenza A & B, NAAT
Negative results must be combined with clinical observations
and patient history.
Nucleic Acid Amplification test (NAAT)performed on the
[employer] platform.
Imaging:
02/07/2025 ECHO (KENYON): normal biventricular size and function, without regional wall motion abnormalities. EF approximately 60%. No significant valvular disease. No obvious endocarditis or vegetations noted. Please see full dictation for
additional detail.
01/31/2025 MRI left ankle: severe osseous destructive changes and bone marrow signal alteration in the hindfoot. Primary consideration would include sequela of osteomyelitis versus very severe Charcot arthrosis. Please see full dictation for
additional detail.
01/30/2025 ECHO (TTE): normal ventricular size and systolic function. Trace mitral regurgitation. Mild tricuspid regurgitation. No pericardial effusion. No noted vegetations.
01/26/2025 x-ray left ankle: Bony destruction of the talar dome, sparing the distal talus. Findings very likely represents sequela of osteomyelitis, new since examination 2017. There is some bony loss involving the distal tibia and fibula, which is
also likely from osteomyelitis. Periosteal new bone formation involving the distal tibia and fibula, likely findings of chronic osteomyelitis.
--- NOTE | 2025-02-10 14:33 | CM ---
Spoke with patient she said she wants [facility] . Called Vivian and [facility] . No beds at [facility] till next week,Pt notified
Spoke with Marzena at [facility] . Pt has used all skilled days. Marzena said that he could come tomorrow under private pay. Special rate is $350/day x 14 days. Total $4,900 To be paid on admission.
Pt Notified . She said she could have check delivered to hospital tomorrow.
Marzena aware can accept pt private pay tomorrow.
Pt will need ambulance transport.
Pt to receive last IV antibiotic tomorrow before discharge.
[facility]
report [phone]

Plan To [facility] under private pay
[2025-02-10 14:42] VITALS: BP 130/56; PULSE 81; O2SAT 94
[2025-02-10 14:49] VITALS: BP 130/56; PULSE 79; O2SAT 94
[2025-02-10 15:20] VITALS: BP 120/61
[2025-02-10 16:52] LABS: Glucose - Point of Care 172 mg/dl (70-99)
[2025-02-10] MEDS: LOVENOX 40 MG SC (17:17)
[2025-02-10 21:32] LABS: Glucose - Point of Care 134 mg/dl (70-99)
[2025-02-10 23:28] VITALS: BP 131/56
[2025-02-11] MEDS: TYLENOL 650 MG PO (01:48)
[2025-02-11 05:06] LABS: Hematocrit 27.4 % (37.0-47.0); Hemoglobin 8.8 g/dL (12.0-16.0); Mean Corp Hgb Conc. 32.1 g/dL (33.0-37.0); Mean Corpuscular Volume 79.9 fL (81.0-99.0); Platelet Count 528 10^3/uL (130-400); Red Cell Dist. Width 16.6 % (11.5-14.5)
[2025-02-11 05:30] LABS: ALT (SGPT) 26 U/L (0-35); AST (SGOT) 19 U/L (14-36); Albumin 3.0 g/dl (3.5-5.0); Alkaline Phosphatase 90 U/L (38-126); Blood Urea Nitrogen 14 mg/dl (7-17); Calcium 8.7 mg/dl (8.4-10.2); Carbon Dioxide 22 mmol/L (22-30); Chloride 105 mmol/L (98-107); Estimated Creatinine Clearance 95 ml/min; Glucose 171 mg/dl (70-99); Potassium 4.1 mmol/L (3.5-5.1); Sodium 135 mmol/L (135-145); Total Protein 6.2 g/dl (6.3-8.2); eGFR > 60.00
[2025-02-11 07:06] VITALS: BP 138/64
[2025-02-11 08:45] LABS: Glucose - Point of Care 161 mg/dl (70-99)
[2025-02-11] MEDS: FEOSOL 325 MG PO (09:06)
[2025-02-11] MEDS: VISBIOME 1 CAP PO (09:06)
[2025-02-11] MEDS: VITAMIN D3 (cholecalciferol) 25 MCG PO (09:07)
[2025-02-11] MEDS: TOPROL XL 25 MG PO (09:07)
[2025-02-11] MEDS: GLUCOPHAGE 1000 MG PO (09:07)
[2025-02-11] MEDS: DESENEX/MITRAZOL/ZEASORB 1 APPLIC TOPICAL (09:08)
[2025-02-11] MEDS: COLACE PO (09:16)
[2025-02-11] MEDS: SENOKOT-S PO (09:20)
[2025-02-11] MEDS: NOVOLOG FLEXPEN-LOW RESISTANCE 1 UNITS SC ×2 (09:22→13:11)
--- NOTE | 2025-02-11 09:53 | W.PN.HOSP.TC ---
Today's Communication/Plan
-
Discharge to SNF
IV daptomycin through 02/12
No further need to trend CK, CMP, CBC
Assessment / Plan
Assessment / Plan
Impression:
74-year-old female with past medical history of left ankle ORIF last year complicated by infected hardware status post removal at [facility], hypertension, hyperlipidemia, type 2 diabetes, history of left thigh lesion s/p ultrasound guided
biopsy in 2019, p/w fever of 102, generalized weakness, and fall. No head injury.
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
02/03/2025: bowel movements, O2 3L, Quinones cath inserted,
02/04/2025: Off nasal O2,off NSS iv, Dilaudid ARCHITECTURAL DRAFTING INSTRUCTOR discontinued , oral oxycodone started for pain, quinones cath removed, bladder scan, chest x-ray was done today (NORMAL) as the pt required 3L oxygen since the surgery.
02/05/2025: remained on room air AFVSS, normal urination without Quinones cath, pain controlled with oral pain med
02/06/2025 Glyburide stopped due to hypoglycemia
Assessment and plan:
#Lt ankle OM with MRSA bacteremia
-The cause of OM is likely related to wound infection due to unhealed wound since the left knee infection and hard mojica removal s/p left ankle ORIF
- ID consulted and following
-discontinued cefipime
-discontinued vancomycin 4 days
-Daptomycin 900 mg day 10
- Blood culture X1 01/26 positive for Staph aureus, MRSA
- Blood culture X1 01/26 positive for Staph aureus, MRSA
- Blood culture X1 from 01/27 gram positive cocci in clusters
- Blood culture X1 from 01/28 no growth in 48 hours
- Blood culture X2 from 01/31 no growth to date
- WBC 13.3-13.7-14.4-14.6--12.1--11.7--12.6--16.8 --16.1--13.9--13.5
- Hb stable 9.1
-urine culture negative
-ID on board
-podiatry on board
-vascular surgeon on bard
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
- ID recc KENYON to rule out endocarditis
- cardiology consulted for KENYON as an inpatient - scheduled tomorrow 02/07/2025
Echo 01/30/2025: EF 56%, trace MR, mild TR, estimated PAP 39 mmHg
KENYON 02/07/2025: EF 55 to 60%, normal BiV size and function without WMA, no significant valve disease, no obvious endocarditis
#Elevated CK
likely related to daptomycine vs BKA
02/03 --183
02/04 --281
02/04--204
02/07--67
02/08--47
02/09--33
02/09--50
will monitor
#Fall secondary to weakness
- Femur x-ray indicating slightly displaced femur fracture
- Consulted orthopedics for right femur
- Consulted podiatry for left ankle/foot as suggested by orthopedics
- Knee immobilizer for right femur
- Pain management as needed
- CT head negative, CT cervical spine negative
- Podiatry ordered left ankle MRI to assess osteomyelitis VS. Charcot foot, still pending
- Urine culture negative
#HLD
- Continue statin
#Type 2 diabetes
- Holding glyburide due to hypoglycemia
- continue metformin
- Diabetic diet
#Hypertension
- Continue metoprolol
Diet: Diabetic diet
DVT PPx: Lovenox
CODE STATUS: Full code
Anticipated Discharge: Today
Subjective/Interval History
-
Date of Service: February 11, 2025
Seen and examined at the bedside. No acute events reported overnight. AFVSS this morning.
Morning labs stable. Remains with mild leukocytosis, hemoglobin stable, renal function stable.
Denies any new complaints. Eager for discharge
Objective Data
-
Labs:
Laboratory Results
02/11/25
04:47
WBC 15.3 H
Hgb 8.8 L
Hct 27.4 L
Plt Count 528 H
Sodium 135
Potassium 4.1
Chloride 105
Carbon Dioxide 22
BUN 14
Creatinine 0.6
Glucose 171 H
Calcium 8.7
Total Bilirubin 0.7
AST 19
ALT 26
Alkaline Phosphatase 90
Vital Signs:
Vital Signs
Temp Pulse Resp BP Pulse Ox
97.8 F 70 18 138/64 96
02/11/25 07:06 02/11/25 09:07 02/11/25 07:06 02/11/25 09:07 02/11/25 07:06
I&O
02/10/25 02/11/25 02/12/25
06:59 06:59 06:59
Intake Total 360 / 360 1140 / 1140
Balance 360 / 360 1140 / 1140
Review of Systems
-
History Source: Patient
All other systems: Reviewed and negative
Physical Exam
-
General: Well Developed, No Apparent Distress and Obese
Respiratory: Clear to Auscultation and Non Labored Respirations
Cardiac: Regular Rhythm and S1/S2; Negative Murmur, Rub or Gallop
GI: Soft, Nontender, Nondistended and Normal Bowel Sounds
Musculoskeletal: No Clubbing, No Cyanosis, No Edema and Other (Left BKA)
Skin: Warm and Dry; Negative Rash
Neuro: AO x 3, Nonfocal/Grossly Intact and Central Nerve's Intact
Psych: Calm
Data Reviewed
-
Labs: Labs Reviewed by me and Discussed with Patient
--- NOTE | 2025-02-11 10:31 | CM ---
Pt for dc today after 2 PM dose of IV ABX. Scripts and midline measurements faxed to Marzena at [facility].
Ambulance transport will be scheduled for after 3PM
Transport papers completed
Plan: DC to [facility] SNF
[2025-02-11 12:22] LABS: Glucose - Point of Care 177 mg/dl (70-99)
[2025-02-11] MEDS: CUBICIN 18 MG IV (14:22)
[2025-02-11 15:08] VITALS: BP 120/60
--- NOTE | 2025-02-11 16:04 | CM ---
Pt discharged to [facility] today via ambulance. Pt had midline removed prior to transfer
--- NOTE | 2025-02-13 12:46 | PN.CDI ---
CDI
- -
CDI:
Physician Documentation Request
Admit Date: 01/26/25 14:43
Dear Doctor Jamel,
02/03 progress note states 'acute hypoxemic respiratory failure.... check CXR'
02/04 chest xray impression states 'No acute cardiopulmonary abnormality.'
02/03 respiratory rates documented 16-20
Recognized standard criteria for respiratory failure includes:
(Source: Patrice Glaser. 2019January 05. Documentation tips: Acute Respiratory Failure, The Hospitalist)
ABGs (1 or more)
�PO2 <60 or RA SpO2 <91%
�PcO2 >45 and pH <7.35
�pO2 decrease or pcO2 increase by 10 mmHg from baseline if known
- P/F ratio (pO2/FiO2) less than 300 Symptoms:
�Tachypnea, SOB, dyspnea
�Pallor or cyanosis
�Anxiety or restlessness
�Use of accessory muscles
�Retractions (grunting in newborns)
�Unable to speak in complete sentences
Based on the above information and the recognized standard for respiratory failure could you please verify this diagnoses is still accurate and reflective of the patient�s condition to ensure quality of the medical record.
Please clarify in the Progress Notes:
�Respiratory failure is/was present and is a clinical diagnosis based on (please include this additional support in the medical record)
�After study respiratory failure has been ruled out
�Other
Use of terms such as suspected, likely, concern for, or probable (associated with a specific diagnosis that is being evaluated, monitored, or treated as if it exists) are acceptable and can be coded in the inpatient setting, when documented at the
time of discharge.
Thank you,
Tammy Bauer RN, BSN
CDI Specialist
tiger text
Please use your independent medical judgment in providing your response.
== END 2025-02-11 16:31 | DRG 856 ==
LOC: 4 EAST ACU 14:43
PROVIDERS: Family Medicine; Internal Medicine Cardiovascular Disease; Internal Medicine Infectious Disease; Nurse Practitioner; Registered Nurse; Specialist Research Data Abstracter/Coder; ADMITTING PHYSICIAN Hospitalist; ATTENDING PHYSICIAN Internal Medicine; CONSULT PHYSICIAN Internal Medicine Cardiovascular Disease; CONSULT PHYSICIAN Internal Medicine Infectious Disease; CONSULT PHYSICIAN Orthopaedic Surgery; EMERGENCY PHYSICIAN Emergency Medicine; FAMILY PHYSICIAN Internal Medicine; OTHER PHYSICIAN Student in an Organized Health Care Education/Training Program; OTHER PHYSICIAN Surgery Vascular Surgery
PROC: 0Y6J0Z2 Detachment at Left Lower Leg, Mid, Open Approach (ICD-10-PCS; 2025-02-02)
PROC: B24BZZ4 Ultrasonography of Heart with Aorta, Transesophageal (ICD-10-PCS; 2025-02-07)
DX: T81.42XA Infection following a procedure, deep incisional surgical site, initial encounter (principal); J95.821 Acute postprocedural respiratory failure; L03.116 Cellulitis of left lower limb; S72.451A Displaced supracondylar fracture without intracondylar extension of lower end of right femur, initial encounter for closed fracture; M97.11XA Periprosthetic fracture around internal prosthetic right knee joint, initial encounter; M86.172 Other acute osteomyelitis, left ankle and foot; R78.81 Bacteremia; I10 Essential (primary) hypertension; E78.00 Pure hypercholesterolemia, unspecified; D50.9 Iron deficiency anemia, unspecified; E11.649 Type 2 diabetes mellitus with hypoglycemia without coma; W07.XXXA Fall from chair, initial encounter; E87.6 Hypokalemia; B95.62 Methicillin resistant Staphylococcus aureus infection as the cause of diseases classified elsewhere; R79.89 Other specified abnormal findings of blood chemistry; Y83.8 Other surgical procedures as the cause of abnormal reaction of the patient, or of later complication, without mention of misadventure at the time of the procedure; R29.6 Repeated falls; Z96.643 Presence of artificial hip joint, bilateral; Z96.653 Presence of artificial knee joint, bilateral; Z79.84 Long term (current) use of oral hypoglycemic drugs; Z86.19 Personal history of other infectious and parasitic diseases; Z87.81 Personal history of (healed) traumatic fracture; Z11.52 Encounter for screening for COVID-19
CPT/HCPCS: 27880; 51701; 70450; 71045; 71046; 71250; 72125; 73551; 73552; 73590; 73610; 73721; 80048; 80053; 80202; 81003; 81015; 82550; 82565; 82962; 83036; 83605; 83735; 85025; 85027; 85652; 86140; 86803; 86850; 86900; 86901; 87040; 87086; 87147; 87154; 87186; 87205; 87502; 87811; 88307; 88311; 93005; 93306; 93312; 93320; 93325; 96361; 96365; 96366; 96367; 97110; 97163; 97164; 97167; 97530; 97535; 99285; J0878